=== PATIENT | female | born 1945 | race Caucasian/White ===

== ENCOUNTER 2017-03-31 00:16 | Inpatient (IN) | payer MEDICARE ==
[2017-03-31] MEDS ORDERED: Acetaminophen 325 MG Tab PO ONE (00:53)
--- NOTE | 2017-03-31 00:55 | EDM.PDOC ---
ED HPI GENERAL MEDICAL PROBLEM - General Chief Complaint: General Stated Complaint: CHILLS AND SOB Time Seen by Provider: 03/31/17 00:55 Source of Information: Reports: Patient History Limitations: Reports: No Limitations - History of Present Illness INITIAL COMMENTS - FREE TEXT/NARRATIVE: pt was watching tv and she suddenly developed severe shaking chills and she was having difficulty catching her breath. She felt like she was shaking so hard that she couldm,t catch her breath, She has not had a cough. Onset: Today, Sudden Duration: Hour(s): Location: Reports: Chest, Other ( She felt like she had a lot of pressure over her bladder. ) Associated Symptoms: Reports: Fever/Chills, Shortness of Breath, Other ( Pressure over her bladder. ) - Related Data Allergies Allergy/AdvReac Type Severity Reaction Status Date / Time codeine Allergy Hives Verified 03/31/17 00:50 Home Meds: Home Meds Lisinopril [Prinivil] 10 mg PO BID #60 tablet 03/20/15 [Rx] Metoprolol Tartrate [Lopressor] 50 mg PO BID #60 tablet 03/20/15 [Rx] Pantoprazole Sodium [Protonix] 20 mg PO DAILY 01/09/16 [History] amLODIPine [Norvasc] 5 mg PO DAILY 01/09/16 [History] Levofloxacin 500 mg PO DAILY #4 tablet 03/31/17 [Rx] Past Medical History Cardiovascular History: Reports: Hypertension Gastrointestinal History: Reports: GERD - Infectious Disease History Infectious Disease History: Reports: Chicken Pox - Past Surgical History GI Surgical History: Reports: Appendectomy Social & Family History - Tobacco Use Smoking Status *Q: Current Every Day Smoker Years of Tobacco use: 50 Packs/Tins Daily: 1 Used Tobacco, but Quit: No Second Hand Smoke Exposure: No - Caffeine Use Caffeine Use: Reports: Coffee - Recreational Drug Use Recreational Drug Use: No ED ROS GENERAL - Review of Systems Review Of Systems: See Below Constitutional: Reports: Fever, Chills, Malaise HEENT: Reports: No Symptoms Respiratory: Reports: Shortness of Breath Cardiovascular: Reports: No Symptoms Endocrine: Reports: No Symptoms GI/Abdominal: Reports: No Symptoms : Reports: Other ( Pt did not have pain when she voided but she had a pressure over her bladder. ) Musculoskeletal: Reports: No Symptoms Skin: Reports: No Symptoms Neurological: Reports: No Symptoms Psychiatric: Reports: Anxiety ED EXAM, GENERAL - Physical Exam Exam: See Below Free Text/Narrative:: pt arrived feeling that her breathing had improved but she was still chilling. Sh had pressure ovr her bladder but no other discomfort. Exam Limited By: No Limitations General Appearance: Alert, Anxious, Moderate Distress, Other ( Pupils are equal and reactive. ) Ears: Normal TMs Nose: Normal Inspection Throat/Mouth: Normal Inspection Head: Atraumatic Neck: Normal Inspection Respiratory/Chest: No Respiratory Distress, Other (Pt was not distressed resp lopez. ) Cardiovascular: Regular Rate, Rhythm GI/Abdominal: Soft, Non-Tender (Female) Exam: Deferred Rectal (Female) Exam: Deferred Back Exam: Normal Inspection Extremities: Normal Inspection Neurological: Alert, Oriented, Normal Cognition Psychiatric: Normal Affect Course - Vital Signs Last Recorded V/S: Last Vital Signs Temp 36.6 C 03/31/17 07:24 Pulse 68 03/31/17 09:14 Resp 18 03/31/17 07:24 BP 145/45 H 03/31/17 09:15 Pulse Ox 98 03/31/17 07:24 - Orders/Labs/Meds Labs: Laboratory Tests 03/31/17 03/31/17 03/31/17 Range/Units 00:55 01:02 01:02 WBC 15.7 H (4.5-11.0) K/uL RBC 4.21 (3.30-5.50) M/uL Hgb 13.7 (12.0-15.0) g/dL Hct 40.6 (36.0-48.0) % MCV 96 (80-98) fL MCH 33 H (27-31) pg MCHC 34 (32-36) % Plt Count 295 (150-400) K/uL Neut % (Auto) 92 H (36-66) % Lymph % (Auto) 4 L (24-44) % [place]lier % (Auto) 3 (2-6) % Eos % (Auto) 1 L (2-4) % Baso % (Auto) 0 (0-1) % Sodium 140 (140-148) mmol/L Potassium 3.7 (3.6-5.2) mmol/L Chloride 105 (100-108) mmol/L Carbon Dioxide 23 (21-32) mmol/L Anion Gap 11.8 (5.0-14.0) mmol/L BUN 11 D (7-18) mg/dL Creatinine 1.5 H (0.6-1.0) mg/dL Est Cr Clr Drug Dosing 28.00 mL/min Estimated GFR (MDRD) 34 L (>60) Glucose 175 H (74-106) mg/dL Lactic Acid 2.3 H (0.4-2.0) mmol/L Calcium 8.7 (8.5-10.1) mg/dL Total Bilirubin 0.4 (0.2-1.0) mg/dL AST 16 (15-37) U/L ALT 22 (12-78) U/L Alkaline Phosphatase 115 (46-116) U/L C-Reactive Protein (0.0-0.3) mg/dL Total Protein 7.4 (6.4-8.2) g/dL Albumin 3.2 L (3.4-5.0) g/dL Globulin 4.2 H (2.3-3.5) g/dL Albumin/Globulin Ratio 0.8 L (1.2-2.2) Urine Color Urine Appearance Urine pH (4.5-8.0) Ur Specific [place] (1.008-1.030) Urine Protein (NEGATIVE) mg/dL Urine Glucose (UA) (NEGATIVE) mg/dL Urine Ketones (NEGATIVE) mg/dL Urine Occult Blood (NEGATIVE) Urine Nitrite (NEGATIVE) Urine Bilirubin (NEGATIVE) Urine Urobilinogen (NORMAL) mg/dL Ur Leukocyte Esterase (NEGATIVE) Urine RBC (0-5) Urine WBC (0-5) Ur Epithelial Cells Amorphous Sediment Urine Bacteria Urine Mucus 03/31/17 03/31/17 Range/Units 01:29 01:42 WBC (4.5-11.0) K/uL RBC (3.30-5.50) M/uL Hgb (12.0-15.0) g/dL Hct (36.0-48.0) % MCV (80-98) fL MCH (27-31) pg MCHC (32-36) % Plt Count (150-400) K/uL Neut % (Auto) (36-66) % Lymph % (Auto) (24-44) % [place] % (Auto) (2-6) % Eos % (Auto) (2-4) % Baso % (Auto) (0-1) % Sodium (140-148) mmol/L Potassium (3.6-5.2) mmol/L Chloride (100-108) mmol/L Carbon Dioxide (21-32) mmol/L Anion Gap (5.0-14.0) mmol/L BUN (7-18) mg/dL Creatinine (0.6-1.0) mg/dL Est Cr Clr Drug Dosing mL/min Estimated GFR (MDRD) (>60) Glucose (74-106) mg/dL Lactic Acid (0.4-2.0) mmol/L Calcium (8.5-10.1) mg/dL Total Bilirubin (0.2-1.0) mg/dL AST (15-37) U/L ALT (12-78) U/L Alkaline Phosphatase (46-116) U/L C-Reactive Protein 2.14 H (0.0-0.3) mg/dL Total Protein (6.4-8.2) g/dL Albumin (3.4-5.0) g/dL Globulin (2.3-3.5) g/dL Albumin/Globulin Ratio (1.2-2.2) Urine Color Yellow Urine Appearance Cloudy Urine pH 5.0 (4.5-8.0) Ur Specific [place] 1.005 L (1.008-1.030) Urine Protein 30 H (NEGATIVE) mg/dL Urine Glucose (UA) Normal (NEGATIVE) mg/dL Urine Ketones Negative (NEGATIVE) mg/dL Urine Occult Blood Moderate (NEGATIVE) Urine Nitrite Negative (NEGATIVE) Urine Bilirubin Negative (NEGATIVE) Urine Urobilinogen Normal (NORMAL) mg/dL Ur Leukocyte Esterase Moderate (NEGATIVE) Urine RBC 10-20 H (0-5) Urine WBC >100 H (0-5) Ur Epithelial Cells Few Amorphous Sediment Not seen Urine Bacteria Moderate Urine Mucus Not seen Meds: Medications Discontinued Medications Generic Name Dose Route Start Last Admin Trade Name Freq PRN Reason Stop Dose Admin Acetaminophen 650 mg 03/31/17 00:53 03/31/17 01:08 Tylenol PO 03/31/17 00:54 650 mg NOW ONE Administration Acetaminophen 650 mg 03/31/17 04:17 Tylenol PO Q4H PRN Pain (Mild 1-3)/fever Albuterol 2.5 mg 03/31/17 04:17 Proventil Neb Soln NEB Q4H PRN Shortness Of Breath/wheezing Albuterol/Ipratropium 3 ml 03/31/17 06:00 Duoneb 3.0-0.5 Mg/3 Ml NEB QID JOSE CRUZ Albuterol/Ipratropium 3 ml 03/31/17 07:00 03/31/17 07:11 Duoneb 3.0-0.5 Mg/3 Ml NEB 3 ml QIDRT JOSE CRUZ Administration Amlodipine Besylate 5 mg 03/31/17 09:00 03/31/17 09:14 Norvasc PO 5 mg DAILY JOSE CRUZ Administration Docusate Sodium 100 mg 03/31/17 04:17 Colace PO BID PRN Constipation Enoxaparin Sodium 30 mg 03/31/17 09:00 03/31/17 09:45 Lovenox SUBCUT Not Given DAILY JOSE CRUZ Sodium Chloride 1,000 mls @ 500 mls/hr 03/31/17 01:00 03/31/17 01:12 Normal Saline IV 500 mls/hr ASDIRECTED JOSE CRUZ Administration Levofloxacin/Dextrose 500 mg/ 100 mls @ 100 mls/hr 03/31/17 02:06 03/31/17 02 :54 Premix IV 03/31/17 03:05 100 mls/hr ONETIME ONE Administration Sodium Chloride 1,000 mls @ 999 mls/hr 03/31/17 02:15 03/31/17 02:55 Normal Saline IV 999 mls/hr ASDIRECTED JOSE CRUZ Administration Levofloxacin/Dextrose 250 mg/ 50 mls @ 50 mls/hr 03/31/17 02:00 03/31/17 05: 21 Premix IV Not Given Q24H JOSE CRUZ Sodium Chloride 1,000 mls @ 125 mls/hr 03/31/17 04:17 03/31/17 04:42 Normal Saline IV 125 mls/hr ASDIRECTED JOSE CRUZ Administration Levofloxacin/Dextrose 500 mg/ 100 mls @ 100 mls/hr 04/01/17 02:00 Premix IV Q24H JOSE CRUZ Ibuprofen 600 mg 03/31/17 04:17 Motrin PO Q6H PRN Pain/Fever Influenza Virus Vaccine 180 mcg 04/01/17 10:00 Fluzone High-Dose 2017-18 IM 04/01/17 10:01 .ONCE ONE Lisinopril 10 mg 03/31/17 09:00 03/31/17 09:15 Prinivil PO 10 mg BID JOSE CRUZ Administration Lorazepam 1 mg 03/31/17 04:17 Ativan IV Q6H PRN Nausea/Vomiting Magnesium Hydroxide 30 ml 03/31/17 04:17 Milk Of Magnesia PO Q12H PRN Constipation Metoprolol Tartrate 50 mg 03/31/17 09:00 03/31/17 09:14 Lopressor PO 50 mg BID JOSE CRUZ Administration Morphine Sulfate 2 mg 03/31/17 04:17 Morphine IVPUSH Q2H PRN Pain (severe 7-10) Nystatin 0 gm 03/31/17 03:45 03/31/17 09:14 Nystatin Crm TOP 1 applic TID JOSE CRUZ Administration Ondansetron HCl 4 mg 03/31/17 04:17 Zofran Odt PO Q6H PRN Nausea able to take PO Oxycodone HCl 5 mg 03/31/17 04:17 Oxycodone PO Q4H PRN Pain (moderate 4-6) Pantoprazole Sodium 40 mg 03/31/17 09:00 03/31/17 09:15 Protonix Iv IVPUSH 40 mg DAILY JOSE CRUZ Administration Zolpidem Tartrate 5 mg 03/31/17 21:00 Ambien PO BEDTIME [facility] - Re-Assessments/Exams Free Text/Narrative Re-Assessment/Exam: 03/31/17 02:12 Pt had a elevated wbc. Her lactic acid is mildly elvated . Her urine is very infected. Her chest xray did not show an infiltrate. Her creatnine is elvated. Departure - Departure Time of Disposition: 09:15 Disposition: Admitted As Inpatient 68 Condition: Fair Clinical Impression: UTI (urinary tract infection) Sepsis Qualifiers: Sepsis type: sepsis due to unspecified organism Qualified Code(s): A41.9 - Sepsis, unspecified organism - Discharge Information
[2017-03-31] MEDS ORDERED: Sodium Chloride 0.9% 1,000 ML IV SCH ×3 (01:00→04:17)
[2017-03-31] MEDS ORDERED: Levofloxacin/Dextrose 5%-Water 250 MG in Premix Bag 1 BAG IV SCH (02:00)
[2017-03-31] MEDS ORDERED: Levofloxacin/Dextrose 5%-Water 500 MG in Premix Bag 1 BAG IV ONE (02:06)
--- NOTE | 2017-03-31 03:35 | PCM.HP ---
H&P History of Present Illness - General Date of Service: 03/31/17 Admit Problem/Dx: Admission Diagnosis/Problem Admission Diagnosis/Problem Urosepsis Source of Information: Patient History Limitations: Reports: No Limitations - History of Present Illness Initial Comments - Free Text/Narative: pt was watching tv and she suddenly developed severe shaking chills and she was having difficulty catching her breath. She felt like she was shaking so hard that she couldm,t catch her breath, She has not had a cough. Onset: Today, Sudden Duration: Hour(s): Location: Reports: Chest, Other ( She felt like she had a lot of pressure over her bladder. ) Associated Symptoms: Reports: Fever/Chills, Shortness of Breath, Other ( Pressure over her bladder. ) -05/31/16 02:12 Pt had a elevated wbc. Her lactic acid is mildly elevated . Her urine is very infected. Her chest xray did not show an infiltrate. Her creatnine is elvated. plan to admit to Hospitalist Service Onset of Symptoms: Reports: Sudden Duration of Symptoms: Reports: Hour(s): Location: Reports: Generalized Quality: Reports: Other (urinary frequency for 2 days, fever this evening.) Improves with: Reports: None Worsens with: Reports: None Associated Symptoms: Reports: Fever/Chills - Related Data Allergies/Adverse Reactions: Allergies Allergy/AdvReac Type Severity Reaction Status Date / Time codeine Allergy Hives Verified 03/31/17 00:50 Home Medications: Home Meds Lisinopril [Prinivil] 10 mg PO BID #60 tablet 03/20/15 [Rx] Metoprolol Tartrate [Lopressor] 50 mg PO BID #60 tablet 03/20/15 [Rx] Pantoprazole Sodium [Protonix] 20 mg PO DAILY 01/09/16 [History] amLODIPine [Norvasc] 5 mg PO DAILY 01/09/16 [History] Past Medical History HEENT History: Reports: Allergic Rhinitis, Cataract, Impaired Vision Cardiovascular History: Reports: Hypertension Gastrointestinal History: Reports: GERD Genitourinary History: Reports: Urinary Incontinence, UTI, Recurrent [employer] History: Reports: Psychiatric History: Reports: Depression Endocrine/Metabolic History: Reports: Obesity/BMI 30+ - Infectious Disease History Infectious Disease History: Reports: Chicken Pox Other Infectious Disease History: pt unknown - Past Surgical History GI Surgical History: Reports: Appendectomy Social & Family History - Tobacco Use Smoking Status *Q: Current Every Day Smoker Years of Tobacco use: 50 Packs/Tins Daily: 1 Used Tobacco, but Quit: No Second Hand Smoke Exposure: No - Caffeine Use Caffeine Use: Reports: Coffee - Recreational Drug Use Recreational Drug Use: No H&P Review of Systems - Review of Systems: Review Of Systems: See Below General: Reports: Fever, Chills, Fatigue HEENT: Reports: No Symptoms Pulmonary: Reports: Cough (chronic cough due to current smoking. >1 pack per day ) Cardiovascular: Reports: No Symptoms Gastrointestinal: Reports: No Symptoms Genitourinary: Reports: Frequency, Urgency Musculoskeletal: Reports: No Symptoms Skin: Reports: Rash (fungal rash to groin folds.) Psychiatric: Reports: No Symptoms Neurological: Reports: No Symptoms Hematologic/Lymphatic: Reports: No Symptoms Immunologic: Reports: No Symptoms Exam - Exam Exam: See Below - Vital Signs Vital Signs: Last Vital Signs Temp 37.9 C 03/31/17 02:59 Pulse 72 03/31/17 02:59 Resp 22 H 03/31/17 02:59 BP 117/55 L 03/31/17 02:59 Pulse Ox 96 03/31/17 02:59 Weight: 97.8 kg - Exam Quality Assessment: DVT Prophylaxis General: Alert, Oriented, Cooperative HEENT: PERRLA, Hearing Intact, Mucosa Moist & [place], Nares Patent, Normal Nasal Septum, Posterior Pharynx Clear, Conjunctiva Clear, EOMI, EACs Clear, TMs Clear Neck: Supple, Trachea Midline, 2 Lungs: Decreased Breath Sounds (at bases, expiratory wheezing. ), Crackles, Wheezing Cardiovascular: Regular Rate, Regular Rhythm GI/Abdominal Exam: Normal Bowel Sounds, Soft, Non-Tender, No Organomegaly, No Distention, No Abnormal Bruit, No Mass, Pelvis Stable (Female) Exam: Deferred Rectal (Female) Exam: Deferred Back Exam: Normal Inspection, Full Range of Motion, NT Extremities: Normal Inspection, Normal Range of Motion, Non-Tender, Normal Capillary Refill, Pedal Edema (1+) Skin: Rash (red, moist, odor rash to groin, abdominal folds.) Neurological: Reflexes Equal Bilateral, Strength Equal Bilateral, Normal Speech , Normal Tone, Sensation Intact Neuro Extensive - Mental Status: Alert, Oriented x3, Normal Mood/Affect, Normal Cognition Psychiatric: Alert, Normal Affect, Normal Mood - Patient Data Lab Results Last 24 hrs: Laboratory Results - last 24 hr 03/31/17 03/31/17 03/31/17 Range/Units 00:55 01:02 01:02 WBC 15.7 H (4.5-11.0) K/uL RBC 4.21 (3.30-5.50) M/uL Hgb 13.7 (12.0-15.0) g/dL Hct 40.6 (36.0-48.0) % MCV 96 (80-98) fL MCH 33 H (27-31) pg MCHC 34 (32-36) % Plt Count 295 (150-400) K/uL Neut % (Auto) 92 H (36-66) % Lymph % (Auto) 4 L (24-44) % [place] % (Auto) 3 (2-6) % Eos % (Auto) 1 L (2-4) % Baso % (Auto) 0 (0-1) % Sodium 140 (140-148) mmol/L Potassium 3.7 (3.6-5.2) mmol/L Chloride 105 (100-108) mmol/L Carbon Dioxide 23 (21-32) mmol/L Anion Gap 11.8 (5.0-14.0) mmol/L BUN 11 D (7-18) mg/dL Creatinine 1.5 H (0.6-1.0) mg/dL Est Cr Clr Drug Dosing 28.00 mL/min Estimated GFR (MDRD) 34 L (>60) Glucose 175 H (74-106) mg/dL Lactic Acid 2.3 H (0.4-2.0) mmol/L Calcium 8.7 (8.5-10.1) mg/dL Total Bilirubin 0.4 (0.2-1.0) mg/dL AST 16 (15-37) U/L ALT 22 (12-78) U/L Alkaline Phosphatase 115 (46-116) U/L C-Reactive Protein (0.0-0.3) mg/dL Total Protein 7.4 (6.4-8.2) g/dL Albumin 3.2 L (3.4-5.0) g/dL Globulin 4.2 H (2.3-3.5) g/dL Albumin/Globulin Ratio 0.8 L (1.2-2.2) Urine Color Urine Appearance Urine pH (4.5-8.0) Ur Specific [place] (1.008-1.030) Urine Protein (NEGATIVE) mg/dL Urine Glucose (UA) (NEGATIVE) mg/dL Urine Ketones (NEGATIVE) mg/dL Urine Occult Blood (NEGATIVE) Urine Nitrite (NEGATIVE) Urine Bilirubin (NEGATIVE) Urine Urobilinogen (NORMAL) mg/dL Ur Leukocyte Esterase (NEGATIVE) Urine RBC (0-5) Urine WBC (0-5) Ur Epithelial Cells Amorphous Sediment Urine Bacteria Urine Mucus 03/31/17 03/31/17 Range/Units 01:29 01:42 WBC (4.5-11.0) K/uL RBC (3.30-5.50) M/uL Hgb (12.0-15.0) g/dL Hct (36.0-48.0) % MCV (80-98) fL MCH (27-31) pg MCHC (32-36) % Plt Count (150-400) K/uL Neut % (Auto) (36-66) % Lymph % (Auto) (24-44) % [place] % (Auto) (2-6) % Eos % (Auto) (2-4) % Baso % (Auto) (0-1) % Sodium (140-148) mmol/L Potassium (3.6-5.2) mmol/L Chloride (100-108) mmol/L Carbon Dioxide (21-32) mmol/L Anion Gap (5.0-14.0) mmol/L BUN (7-18) mg/dL Creatinine (0.6-1.0) mg/dL Est Cr Clr Drug Dosing mL/min Estimated GFR (MDRD) (>60) Glucose (74-106) mg/dL Lactic Acid (0.4-2.0) mmol/L Calcium (8.5-10.1) mg/dL Total Bilirubin (0.2-1.0) mg/dL AST (15-37) U/L ALT (12-78) U/L Alkaline Phosphatase (46-116) U/L C-Reactive Protein 2.14 H (0.0-0.3) mg/dL Total Protein (6.4-8.2) g/dL Albumin (3.4-5.0) g/dL Globulin (2.3-3.5) g/dL Albumin/Globulin Ratio (1.2-2.2) Urine Color Yellow Urine Appearance Cloudy Urine pH 5.0 (4.5-8.0) Ur Specific [place] 1.005 L (1.008-1.030) Urine Protein 30 H (NEGATIVE) mg/dL Urine Glucose (UA) Normal (NEGATIVE) mg/dL Urine Ketones Negative (NEGATIVE) mg/dL Urine Occult Blood Moderate (NEGATIVE) Urine Nitrite Negative (NEGATIVE) Urine Bilirubin Negative (NEGATIVE) Urine Urobilinogen Normal (NORMAL) mg/dL Ur Leukocyte Esterase Moderate (NEGATIVE) Urine RBC 10-20 H (0-5) Urine WBC >100 H (0-5) Ur Epithelial Cells Few Amorphous Sediment Not seen Urine Bacteria Moderate Urine Mucus Not seen Result Diagrams: 03/31/17 00:55 03/31/17 01:02 Arturo Results Last 24 hrs: Microbiology 03/31/17 01:15 Influenza Type A Antigen Screen - Final Nasopharyngeal Swab - Nare, Unspecified NEGATIVE INFLUENZA A VIRUS AG Influenza Type B Antigen Screen - Final NEGATIVE INFLUENZA B VIRUS AG *Q Meaningful Use (ADM) - VTE *Q VTE Criteria *Q: - Stroke *Q Stroke Criteria *Q: - AMI *Q AMI Criteria *Q: - Problem List (1) Sepsis due to urinary tract infection SNOMED Code(s): 150263366 ICD Code: A41.9 - SEPSIS, UNSPECIFIED ORGANISM; N39.0 - URINARY TRACT INFECTION, SITE NOT SPECIFIED Status: Acute Priority: High Current Visit: Yes (2) Mita rash of groin SNOMED Code(s): 49625148 ICD Code: B37.89 - OTHER SITES OF CANDIDIASIS Status: Acute Priority: Medium Current Visit: Yes (3) Hypertension SNOMED Code(s): 23680111 ICD Code: I10 - ESSENTIAL (PRIMARY) HYPERTENSION Status: Acute Priority: Medium Current Visit: Yes Qualifiers: Hypertension type: unspecified Qualified Code(s): I10 - Essential (primary ) hypertension Problem List Initiated/Reviewed/Updated: Yes Orders Last 24hrs: Active Orders 24 hr Category Date Time Status Patient Status Manage Transfer [TRANSFER] Routine ADT 03/31/17 03:03 Active Chest 1V Frontal [CR] Stat Exams 03/31/17 00:50 Taken CULTURE BLOOD [BC] Urgent Lab 03/31/17 00:55 Received CULTURE BLOOD [BC] Urgent Lab 03/31/17 01:15 Received CULTURE URINE [RM] Stat Lab 03/31/17 02:30 Received Lisinopril [Prinivil] Med 03/31/17 09:00 Ordered 10 mg PO BID Metoprolol Tartrate [Lopressor] Med 03/31/17 09:00 Ordered 50 mg PO BID Nystatin [Nystatin Crm] Med 03/31/17 03:45 Ordered See Dose Instructions TOP TID Sodium Chloride 0.9% [Normal Saline] 1,000 ml Med 03/31/17 01:00 Active IV ASDIRECTED Sodium Chloride 0.9% [Normal Saline] 1,000 ml Med 03/31/17 02:15 Active IV ASDIRECTED amLODIPine [Norvasc] Med 03/31/17 09:00 Ordered 5 mg PO DAILY Blood Culture x2 Reflex Set [OM.PC] Urgent Oth 03/31/17 00:49 Ordered Resuscitation Status Routine Resus Stat 03/31/17 03:04 Ordered Medication Orders Amlodipine Besylate (Norvasc) 5 mg PO DAILY [facility] Sodium Chloride (Normal Saline) 1,000 mls @ 500 mls/hr IV ASDIRECTED [facility] Last Admin: 03/31/17 01:12 Dose: 500 mls/hr Sodium Chloride (Normal Saline) 1,000 mls @ 999 mls/hr IV ASDIRECTED [facility] Last Admin: 03/31/17 02:55 Dose: 999 mls/hr Lisinopril (Prinivil) 10 mg PO BID JOSE CRUZ Metoprolol Tartrate (Lopressor) 50 mg PO BID JOSE CRUZ Nystatin (Nystatin Crm) 0 gm TOP TID [facility] Assessment/Plan Comment:: ASSESSMENT / PLAN -This is a 71 year old female present to ER with complaints of fever and shaking chills started this evening. Upon arrival to ER was noted to have >104 temp, shaking chills. Pt had a elevated wbc. Her lactic acid is mildly elevated . Her urine is very infected. Her chest xray did not show an infiltrate. Her creatnine is elvated. While in ER, given Normal Saline IV fluids, IV Levoquin 500 mg. Plan to hospital for early urosepsis. Urosepsis -Admit to [address] [place] [address] for further monitoring -IV Fluids for rehydration NS at 125 mL per hour -IV Antibiotic; Levoquin 500 gram IV every 24 hours -Advise to notify nurses of any chest pain or other symptoms -blood cultures x2 pending -And a.m. labs: CBC, BMP, lactic acid rash of groin, secondary to fungal infection -Nystatin oral cream as directed Hypertension -order home medication Tobacco use, lung disease -albuteral nebs every 4 hours prn -Duonebs schedule -decline Nicotine patch Maintenance issues -Orders home meds: -Nutrition: consistent diet -Pastor catheter not indicated at this time -DVT: Lovonox 30 units subcut -PPI; IV Protonix 40mg daily CODE STATUS: FULL Admission status: Admit to [address] [place] [address] justification. This patient will be admitted for inpatient services and is medically appropriate meeting medical necessity for inpatient admission as outlined in my documentation. I reasonably expect the patient will require inpatient services that span. Time over 2 midnights. I reasonably expect this patient to be discharged or transferred within 96 hours after admission to the critical access hospital. Disposition; home Primary care provider: Hospitalist: Dr. Mims
[2017-03-31] MEDS ORDERED: Acetaminophen 325 MG Tab PO PRN (04:17)
[2017-03-31] MEDS ORDERED: oxyCODONE 5 MG Tab PO PRN (04:17)
[2017-03-31] MEDS ORDERED: Docusate Sodium 100 MG Cap PO PRN (04:17)
[2017-03-31] MEDS ORDERED: Albuterol 0.083% 2.5 MG/3 ML Neb Soln NEB PRN (04:17)
[2017-03-31] MEDS ORDERED: Magnesium Hydroxide 400 MG/5 ML Susp 30 ML Cup PO PRN (04:17)
[2017-03-31] MEDS ORDERED: LORazepam 2 MG/ML MDV IV PRN (04:17)
[2017-03-31] MEDS ORDERED: Morphine 2 MG/ML Syringe IVPUSH PRN (04:17)
[2017-03-31] MEDS ORDERED: Ondansetron 4 MG Tab.DIS PO PRN (04:17)
[2017-03-31] MEDS ORDERED: Ibuprofen 600 MG Tab PO PRN (04:17)
[2017-03-31] MEDS: Nystatin Crm 30 GM Tube TOP SCH ×2 (05:15→09:14)
[2017-03-31] MEDS ORDERED: Albuterol/Ipratropium 3.0-0.5 MG/3 ML Neb Soln NEB SCH ×2 (06:00→07:00)
[2017-03-31] MEDS ORDERED: Lisinopril 10 MG Tab PO SCH (09:00)
[2017-03-31] MEDS ORDERED: Metoprolol Tartrate 50 MG Tab PO SCH (09:00)
[2017-03-31] MEDS ORDERED: Pantoprazole 40 MG Vial IVPUSH SCH (09:00)
[2017-03-31] MEDS ORDERED: amLODIPine 5 MG Tab PO SCH (09:00)
[2017-03-31] MEDS: Enoxaparin 30 MG/0.3 ML Syringe SUBCUT SCH ×2 (09:14→09:45)
[2017-03-31 09:18] VITALS: BP 145/45
--- NOTE | 2017-03-31 09:47 | PCM.DCSUM1 ---
Discharge Summary - Hospital Course Brief History: 71-year-old female with history of hypertension who presented with fever and shortness of breath and was admitted for management of acute cystitis with early sepsis. - Discharge Data Discharge Date: 03/31/17 Discharge Disposition: Home, Self-Care 01 Condition: Fair - Discharge Diagnosis/Problem(s) (1) Acute cystitis without hematuria SNOMED Code(s): 52599765 ICD Code: N30.00 - ACUTE CYSTITIS WITHOUT HEMATURIA Status: Acute Current Visit: Yes (2) Sepsis SNOMED Code(s): 35993574 ICD Code: A41.9 - SEPSIS, UNSPECIFIED ORGANISM Status: Acute Current Visit: Yes Qualifiers: Sepsis type: sepsis due to unspecified organism Qualified Code(s): A41.9 - Sepsis, unspecified organism (3) Essential hypertension SNOMED Code(s): 85568018 ICD Code: I10 - ESSENTIAL (PRIMARY) HYPERTENSION Status: Chronic Current Visit: No - Patient Summary/Data Labs Pending at D/C: final results of the urine culture which are pending at the time of discharge Hospital Course: Estefani presented with fevers, shaking chills and shortness of breath. Workup in the emergency room was suggestive of acute cystitis with early sepsis syndrome. She was started on levofloxacin and provided IV fluids. Cultures were obtained. She was admitted for further management. Overnight she improved dramatically and much more quickly than expected. Her vital signs stabilized. She has been afebrile since admission. She does not have any pain at this time. She has been up and walking around without difficulty. She has tolerated the diet with no difficulty. She is interested in going home at this time. I believe with her stable vital signs and dramatic improvement that she should be safe for outpatient management. Plan is to continue the levofloxacin for 4 more days. She 'll take 500 mg once daily in the morning starting tomorrow. I will contact her if the urine culture was a bacteria that's resistant to the levofloxacin. She was encouraged to push fluids to maintain hydration and further flush the infection out of her bladder. She will follow-up if symptoms do not continue to get better or they get worse. - Patient Instructions Diet: Regular Diet as Tolerated Activity: As Tolerated Driving: May Drive Today Showering/Bathing: May Shower Notify Provider of: Fever, Increased Pain, Nausea and/or Vomiting Other/Special Instructions: 1. You Were in the hospital for management of a urinary tract infection with early sepsis syndrome. You have improved very quickly with treatment provided in the emergency room and the early part of the hospital stay. I recommend additional antibiotic therapy with levofloxacin. You will take 500 mg once daily in the morning for 4 more days. Your first dose is due tomorrow morning. 2. Continue your usual medications as previously prescribed. 3. Please seek medical attention if you develop fever greater than 101, have severe abdominal pain, or if you develop persistent vomiting or diarrhea - Discharge Plan Prescriptions/Med Rec: Levofloxacin 500 mg PO DAILY #4 tablet Home Medications: Home Meds Lisinopril [Prinivil] 10 mg PO BID #60 tablet 03/20/15 [Rx] Metoprolol Tartrate [Lopressor] 50 mg PO BID #60 tablet 03/20/15 [Rx] Pantoprazole Sodium [Protonix] 20 mg PO DAILY 01/09/16 [History] amLODIPine [Norvasc] 5 mg PO DAILY 01/09/16 [History] Levofloxacin 500 mg PO DAILY #4 tablet 03/31/17 [Rx] Patient Handouts: Urinary Tract Infection, Adult, Levofloxacin tablets Referrals: Ishaan Giraldo PA-C [Primary Care Provider] - (f/u as needed if symptoms do not continue to get better or they get worse) - Discharge Summary/Plan Comment DC Time >30 min.: No (25) - Patient Data Vitals - Most Recent: Last Vital Signs Temp 36.6 C 03/31/17 07:24 Pulse 68 03/31/17 09:14 Resp 18 03/31/17 07:24 BP 145/45 H 03/31/17 09:15 Pulse Ox 98 03/31/17 07:24 Weight - Most Recent: 98.2 kg I&O - Last 24 hours: Intake & Output 03/30/17 03/31/17 03/31/17 22:59 06:59 14:59 Intake Total 659 250 Balance 659 250 Lab Results - Last 24 hrs: Laboratory Results - last 24 hr 03/31/17 03/31/17 Range/Units 05:10 05:11 Lactic Acid 1.7 (0.4-2.0) mmol/L C-Reactive Protein 2.38 H (0.0-0.3) mg/dL Med Orders - Current: Current Medications Acetaminophen (Tylenol) 650 mg PO Q4H PRN PRN Reason: Pain (Mild 1-3)/fever Albuterol (Proventil Neb Soln) 2.5 mg NEB Q4H PRN PRN Reason: Shortness Of Breath/wheezing Albuterol/Ipratropium (Duoneb 3.0-0.5 Mg/3 Ml) 3 ml NEB QIDRT [facility] Last Admin: 03/31/17 07:11 Dose: 3 ml Amlodipine Besylate (Norvasc) 5 mg PO DAILY [facility] Last Admin: 03/31/17 09:14 Dose: 5 mg Docusate Sodium (Colace) 100 mg PO BID PRN PRN Reason: Constipation Enoxaparin Sodium (Lovenox) 30 mg SUBCUT DAILY [facility] Last Admin: 03/31/17 09:45 Dose: Not Given Sodium Chloride (Normal Saline) 1,000 mls @ 125 mls/hr IV ASDIRECTED [facility] Last Admin: 03/31/17 04:42 Dose: 125 mls/hr Levofloxacin/Dextrose 500 mg/ (Premix) 100 mls @ 100 mls/hr IV Q24H [facility] Ibuprofen (Motrin) 600 mg PO Q6H PRN PRN Reason: Pain/Fever Influenza Virus Vaccine (Fluzone High-Dose 2016-) 180 mcg IM .ONCE ONE Stop: 04/01/17 10:01 Lisinopril (Prinivil) 10 mg PO BID [facility] Last Admin: 03/31/17 09:15 Dose: 10 mg Lorazepam (Ativan) 1 mg IV Q6H PRN PRN Reason: Nausea/Vomiting Magnesium Hydroxide (Milk Of Magnesia) 30 ml PO Q12H PRN PRN Reason: Constipation Metoprolol Tartrate (Lopressor) 50 mg PO BID [facility] Last Admin: 03/31/17 09:14 Dose: 50 mg Morphine Sulfate (Morphine) 2 mg IVPUSH Q2H PRN PRN Reason: Pain (severe 7-10) Nystatin (Nystatin Crm) 0 gm TOP TID [facility] Last Admin: 03/31/17 09:14 Dose: 1 applic Ondansetron HCl (Zofran Odt) 4 mg PO Q6H PRN PRN Reason: Nausea able to take PO Oxycodone HCl (Oxycodone) 5 mg PO Q4H PRN PRN Reason: Pain (moderate 4-6) Pantoprazole Sodium (Protonix Iv) 40 mg IVPUSH DAILY [facility] Last Admin: 03/31/17 09:15 Dose: 40 mg Zolpidem Tartrate (Ambien) 5 mg PO BEDTIME [facility] Discontinued Medications Acetaminophen (Tylenol) 650 mg PO NOW ONE Stop: 03/31/17 00:54 Last Admin: 03/31/17 01:08 Dose: 650 mg Albuterol/Ipratropium (Duoneb 3.0-0.5 Mg/3 Ml) 3 ml NEB QID [facility] Sodium Chloride (Normal Saline) 1,000 mls @ 500 mls/hr IV ASDIRECTED [facility] Last Admin: 03/31/17 01:12 Dose: 500 mls/hr Levofloxacin/Dextrose 500 mg/ (Premix) 100 mls @ 100 mls/hr IV ONETIME ONE Stop: 03/31/17 03:05 Last Admin: 03/31/17 02:54 Dose: 100 mls/hr Sodium Chloride (Normal Saline) 1,000 mls @ 999 mls/hr IV ASDIRECTED [facility] Last Admin: 03/31/17 02:55 Dose: 999 mls/hr Levofloxacin/Dextrose 250 mg/ (Premix) 50 mls @ 50 mls/hr IV Q24H [facility] Last Admin: 03/31/17 05:21 Dose: Not Given - Exam Quality Assessment: Denies: Supplemental Oxygen General: Reports: Alert, Oriented, Cooperative, No Acute Distress Neck: Reports: Supple Lungs: Reports: Normal Respiratory Effort GI/Abdominal Exam: No Distention Psy/Mental Status: Reports: Alert, Normal Affect *Q Meaningful Use (DIS) - VTE *Q VTE Criteria *Q: - Stroke *Q Stroke Criteria *Q: - AMI *Q AMI Criteria *Q:
--- NOTE | 2017-03-31 10:51 | CR ---
Chest 1V Frontal INDICATION: sob FINDINGS: Comparison 04/08/2015. Heart size accentuated by portable AP technique. Chest otherwise neg ative.
[2017-03-31] MEDS ORDERED: Zolpidem 5 MG Tab PO SCH (21:00)
[2017-04-01] MEDS ORDERED: Levofloxacin/Dextrose 5%-Water 500 MG in Premix Bag 1 BAG IV SCH (02:00)
[2017-04-01] MEDS ORDERED: FLU Vacc TS 2017-18 (65yr UP)/PF 180 MCG/0.5 ML Syringe IM ONE (10:00)
== END 2017-03-31 10:35 | disposition home or self-care (01) | DRG 872 ==
LOC: JP.ED 00:16 → JP.MS 03:03
PROVIDERS: ADMIT Internal Medicine; ATTEND Internal Medicine
DX: A41.9 Sepsis, unspecified organism (principal); N30.00 Acute cystitis without hematuria; B37.89 Other sites of candidiasis; I10 Essential (primary) hypertension; F17.210 Nicotine dependence, cigarettes, uncomplicated; R50.9 Fever, unspecified; R06.02 Shortness of breath; K21.9 Gastro-esophageal reflux disease without esophagitis; H54.7 Unspecified visual loss; Z87.440 Personal history of urinary (tract) infections; Z88.5 Allergy status to narcotic agent
CPT/HCPCS: 36415; 71010 ×2; 80053; 81001; 83605; 85025; 86140; 87040 ×2; 87086; 87804 ×2; A9270; J1956; J7040 ×2; 87088; 87186; 94640; 96361; 96374; 99284; 99285-25; C9113; J1650; J7620

== ENCOUNTER 2021-01-28 09:13 | Inpatient (IN) | payer MEDICARE ==
[2021-01-28] MEDS ORDERED: Albuterol/Ipratropium 3.0-0.5 MG/3 ML Neb Soln NEB ONE (09:17)
[2021-01-28] MEDS ORDERED: Albuterol/Ipratropium 3.0-0.5 MG/3 ML Neb Soln ONE (09:17)
[2021-01-28] MEDS: Levofloxacin/Dextrose 5%-Water 750 MG in Premix Bag 1 BAG IV SCH (09:24)
[2021-01-28] MEDS ORDERED: Morphine 4 MG/ML Syringe IVPUSH ONE (09:24)
--- NOTE | 2021-01-28 09:40 | EDM.PDOC ---
ED HPI GENERAL MEDICAL PROBLEM - General Chief Complaint: Respiratory Problem Stated Complaint: [facility] Time Seen by Provider: 01/28/21 09:15 Source of Information: Reports: EMS, RN Notes Reviewed History Limitations: Reports: Respiratory Distress - History of Present Illness INITIAL COMMENTS - FREE TEXT/NARRATIVE: 75-year-old female presents emergency department today in respiratory distress she is brought in by EMS services. Limited history is obtained she cannot speak in single word sentences EMS states she has known history of COPD has had difficulty breathing for the last day or so. She is unvaccinated for Covid no known exposures - Related Data Allergies Allergy/AdvReac Type Severity Reaction Status Date / Time codeine Allergy Hives Verified 01/28/21 09:42 Home Meds: Home Meds Pantoprazole Sodium [Protonix] 20 mg PO DAILY 01/09/16 [History] amLODIPine [Norvasc] 5 mg PO DAILY 01/09/16 [History] Albuterol [Ventolin HFA] 2 puff IH QID 01/28/21 [History] Rosuvastatin [Crestor] 20 mg PO DAILY 01/28/21 [History] polyethylene glycoL 3350 [MiraLAX] 17 gm PO DAILY 01/28/21 [History] Past Medical History HEENT History: Reports: Allergic Rhinitis, Cataract, Impaired Vision Cardiovascular History: Reports: High Cholesterol, Hypertension Respiratory History: Reports: COPD Gastrointestinal History: Reports: GERD Genitourinary History: Reports: Urinary Incontinence, UTI, Recurrent 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: Psychiatric History: Reports: Depression Endocrine/Metabolic History: Reports: Obesity/BMI 30+ - Infectious Disease History Infectious Disease History: Reports: Chicken Pox Other Infectious Disease History: pt unknown - Past Surgical History GI Surgical History: Reports: Appendectomy Social & Family History - Caffeine Use Caffeine Use: Reports: Coffee ED ROS GENERAL - Review of Systems Review Of Systems: Unable To Obtain Reason Not Obtained: Respiratory failure ED EXAM, GENERAL - Physical Exam Exam: See Below Exam Limited By: Respiratory Distress General Appearance: Obtunded, Severe Distress Respiratory/Chest: Respiratory Distress, Rhonchi, Wheezing, Accessory Muscle Use Cardiovascular: Tachycardia GI/Abdominal: Soft, Non-Tender #1 Interpretation EKG Date: 01/28/21 Time: 10:25 Rhythm: Other (tachycardia) Rate (Beats/Min): 140 Jeannette: LAD-Left Jeannette Deviation P-Wave: Absent QRS: Normal ST-T: Normal QT: Prolonged Comparison: Change From Previous EKG Course - Vital Signs Last Recorded V/S: Last Vital Signs Temp 96.7 F L 01/28/21 09:53 Pulse 132 H 01/28/21 12:38 Resp 28 H 01/28/21 12:38 BP 97/69 01/28/21 12:38 Pulse Ox 98 01/28/21 12:38 - Orders/Labs/Meds Orders: Active Orders 24 hr Category Date Time Status Pastor Catheter Insertion [Insert Urinary Catheter] [OM. Care 01/28/21 10:30 Ordered PC] Q24H RT Aerosol Therapy [RC] ASDIRECTED Care 01/28/21 11:44 Active Urinary Catheter Assessment [RC] ASDIRECTED Care 01/28/21 10:19 Active Vital Signs [RC] Q1H Care 01/28/21 09:16 Active CULTURE BLOOD [BC] Urgent Lab 01/28/21 09:37 Received CULTURE BLOOD [BC] Urgent Lab 01/28/21 09:52 Received Albuterol [Proventil Neb Soln] Med 01/28/21 11:44 Active 2.5 mg NEB Q2H PRN Levofloxacin/Dextrose 5%-Water [Levaquin in D5W 750 MG/ Med 01/28/21 09:30 Act sammi 150 ML] 750 mg Premix Bag 1 bag IV Q24H Norepinephrine [Levophed] 4 mg Med 01/28/21 09:45 Active Dextrose 5% in Water 246 ml IV TITRATE Blood Culture x2 Reflex Set [OM.PC] Urgent Oth 01/28/21 09:16 Ordered EKG 12 Lead [EK] Stat Ther 01/28/21 09:38 Ordered Medication Orders Albuterol (Albuterol 0.083% 2.5 Mg/3 Ml Neb Soln) 2.5 mg NEB Q2H PRN PRN Reason: Wheezing Last Admin: 01/28/21 12:02 Dose: 2.5 mg Documented by: BETI Levofloxacin/Dextrose 750 mg/ (Premix) 150 mls @ 100 mls/hr IV Q24H JOSE CRUZ Last Admin: 01/28/21 09:24 Dose: 100 mls/hr Documented by: [id number] Norepinephrine Bitartrate 4 mg (/ Dextrose/Water) 250 mls @ 7.5 mls/hr IV TITRATE JOSE CRUZ; Protocol Last Titration: 01/28/21 14:03 Dose: 5 mcg/min, 18.75 mls/hr Documented by: Titration: 01/28/21 12:06 Dose: 4 mcg/min, 15 mls/hr Documented by: Titration: 01/28/21 11:40 Dose: 3 mcg/min, 11.25 mls/hr Documented by: Admin: 01/28/21 10:05 Dose: 2 mcg/min, 7.5 mls/hr Documented by: BETI Labs: Laboratory Tests 01/28/21 01/28/21 01/28/21 Range/Units 09:19 09:45 10:03 WBC 23.4 H (4.5-11.0) K/uL RBC 4.35 (3.30-5.50) M/uL Hgb 14.0 (12.0-15.0) g/dL Hct 41.5 (36.0-48.0) % MCV 95 (80-98) fL MCH 32 H (27-31) pg MCHC 34 (32-36) % Plt Count 317 (150-400) K/uL Neut % (Auto) 91.6 H (36-66) % Lymph % (Auto) 5.7 L (24-44) % Kinney % (Auto) 2.1 (2-6) % Eos % (Auto) 0.3 L (2-4) % Baso % (Auto) 0.3 (0-1) % Puncture Site Lt radial ABG pH 7.304 L (7.350-7.450) ABG pCO2 36.0 (35.0-42.0) mmHg ABG pO2 155.0 H (75.0-100.0) mmHg ABG HCO3 17.4 L (22.0-26.0) mmol/L ABG Total CO2 15.6 L (21.0-25.0) mmol/L ABG O2 Saturation 98.9 H (95.0-98.0) % ABG O2 Content 19.3 (15.0-23.0) %vol ABG Base Excess -7.8 mm/L ABG Hemoglobin 14.4 (12.0-16.0) g/dL ABG Oxyhemoglobin 94.3 % ABG Carboxyhemoglobin 3.9 H (0.0-1.6) % ABG Methemoglobin 0.8 % Grupo Test Passed O2 Delivery Device Simple mask Oxygen Flow Rate L Sodium (140-148) mmol/L Potassium (3.6-5.2) mmol/L Chloride (100-108) mmol/L Carbon Dioxide (21-32) mmol/L Anion Gap (5.0-14.0) mmol/L BUN (7-18) mg/dL Creatinine (0.6-1.0) mg/dL Est Cr Clr Drug Dosing mL/min Estimated GFR (MDRD) (>60) Glucose (74-106) mg/dL Lactic Acid (0.4-2.0) mmol/L Calcium (8.5-10.1) mg/dL Total Bilirubin (0.2-1.0) mg/dL AST (15-37) U/L ALT (12-78) U/L Alkaline Phosphatase (46-116) U/L Troponin I (0.000-0.056) ng/mL C-Reactive Protein (0.0-0.3) mg/dL NT-Pro-B Natriuret Pep (5-125) pg/mL Total Protein (6.4-8.2) g/dL Albumin (3.4-5.0) g/dL Globulin (2.3-3.5) g/dL Albumin/Globulin Ratio (1.2-2.2) Procalcitonin ng/mL Urine Color (YELLOW) Urine Appearance (CLEAR) Urine pH (5.0-8.0) Ur Specific Everson (1.008-1.030) Urine Protein (NEGATIVE) mg/dL Urine Glucose (UA) (NEGATIVE) mg/dL Urine Ketones (NEGATIVE) mg/dL Urine Occult Blood (NEGATIVE) Urine Nitrite (NEGATIVE) Urine Bilirubin (NEGATIVE) Urine Urobilinogen (0.2-1.0) EU/dL Ur Leukocyte Esterase (NEGATIVE) Urine RBC (0-5) Urine WBC (0-5) Ur Epithelial Cells Amorphous Sediment Urine Bacteria Urine Mucus Urine Other SARS CoV-2 RNA Rapid SANJIV Negative 01/28/21 01/28/21 01/28/21 Range/Units 10:03 10:03 10:03 WBC (4.5-11.0) K/uL RBC (3.30-5.50) M/uL Hgb (12.0-15.0) g/dL Hct (36.0-48.0) % MCV (80-98) fL MCH (27-31) pg MCHC (32-36) % Plt Count (150-400) K/uL Neut % (Auto) (36-66) % Lymph % (Auto) (24-44) % Kinney % (Auto) (2-6) % Eos % (Auto) (2-4) % Baso % (Auto) (0-1) % Puncture Site ABG pH (7.350-7.450) ABG pCO2 (35.0-42.0) mmHg ABG pO2 (75.0-100.0) mmHg ABG HCO3 (22.0-26.0) mmol/L ABG Total CO2 (21.0-25.0) mmol/L ABG O2 Saturation (95.0-98.0) % ABG O2 Content (15.0-23.0) %vol ABG Base Excess mm/L ABG Hemoglobin (12.0-16.0) g/dL ABG Oxyhemoglobin % ABG Carboxyhemoglobin (0.0-1.6) % ABG Methemoglobin % Grupo Test O2 Delivery Device Oxygen Flow Rate L Sodium 139 L (140-148) mmol/L Potassium 4.0 (3.6-5.2) mmol/L Chloride 104 (100-108) mmol/L Carbon Dioxide 22 (21-32) mmol/L Anion Gap 17.0 H (5.0-14.0) mmol/L BUN 11 (7-18) mg/dL Creatinine 1.4 H (0.6-1.0) mg/dL Est Cr Clr Drug Dosing 32.20 mL/min Estimated GFR (MDRD) 37 L (>60) Glucose 239 H (74-106) mg/dL Lactic Acid 1.6 (0.4-2.0) mmol/L Calcium 8.2 L (8.5-10.1) mg/dL Total Bilirubin 0.8 D (0.2-1.0) mg/dL AST 129 H D (15-37) U/L ALT 127 H (12-78) U/L Alkaline Phosphatase 110 (46-116) U/L Troponin I (0.000-0.056) ng/mL C-Reactive Protein 0.94 H (0.0-0.3) mg/dL NT-Pro-B Natriuret Pep (5-125) pg/mL Total Protein 6.5 (6.4-8.2) g/dL Albumin 3.0 L (3.4-5.0) g/dL Globulin 3.5 (2.3-3.5) g/dL Albumin/Globulin Ratio 0.9 L (1.2-2.2) Procalcitonin < 0.05 ng/mL Urine Color (YELLOW) Urine Appearance (CLEAR) Urine pH (5.0-8.0) Ur Specific Everson (1.008-1.030) Urine Protein (NEGATIVE) mg/dL Urine Glucose (UA) (NEGATIVE) mg/dL Urine Ketones (NEGATIVE) mg/dL Urine Occult Blood (NEGATIVE) Urine Nitrite (NEGATIVE) Urine Bilirubin (NEGATIVE) Urine Urobilinogen (0.2-1.0) EU/dL Ur Leukocyte Esterase (NEGATIVE) Urine RBC (0-5) Urine WBC (0-5) Ur Epithelial Cells Amorphous Sediment Urine Bacteria Urine Mucus Urine Other SARS CoV-2 RNA Rapid SANJIV 01/28/21 01/28/21 01/28/21 Range/Units 10:03 10:03 12:00 WBC (4.5-11.0) K/uL RBC (3.30-5.50) M/uL Hgb (12.0-15.0) g/dL Hct (36.0-48.0) % MCV (80-98) fL MCH (27-31) pg MCHC (32-36) % Plt Count (150-400) K/uL Neut % (Auto) (36-66) % Lymph % (Auto) (24-44) % Kinney % (Auto) (2-6) % Eos % (Auto) (2-4) % Baso % (Auto) (0-1) % Puncture Site Rt radial ABG pH 7.384 (7.350-7.450) ABG pCO2 35.3 (35.0-42.0) mmHg ABG pO2 86.2 (75.0-100.0) mmHg ABG HCO3 20.6 L (22.0-26.0) mmol/L ABG Total CO2 18.4 L (21.0-25.0) mmol/L ABG O2 Saturation 96.5 (95.0-98.0) % ABG O2 Content 17.7 (15.0-23.0) %vol ABG Base Excess -3.3 mm/L ABG Hemoglobin 13.4 (12.0-16.0) g/dL ABG Oxyhemoglobin 93.8 % ABG Carboxyhemoglobin 2.1 H (0.0-1.6) % ABG Methemoglobin 0.7 % Grupo Test Passed O2 Delivery Device Bipap Oxygen Flow Rate L Sodium (140-148) mmol/L Potassium (3.6-5.2) mmol/L Chloride (100-108) mmol/L Carbon Dioxide (21-32) mmol/L Anion Gap (5.0-14.0) mmol/L BUN (7-18) mg/dL Creatinine (0.6-1.0) mg/dL Est Cr Clr Drug Dosing mL/min Estimated GFR (MDRD) (>60) Glucose (74-106) mg/dL Lactic Acid (0.4-2.0) mmol/L Calcium (8.5-10.1) mg/dL Total Bilirubin (0.2-1.0) mg/dL AST (15-37) U/L ALT (12-78) U/L Alkaline Phosphatase (46-116) U/L Troponin I 0.154 H* (0.000-0.056) ng/mL C-Reactive Protein (0.0-0.3) mg/dL NT-Pro-B Natriuret Pep 9103 H (5-125) pg/mL Total Protein (6.4-8.2) g/dL Albumin (3.4-5.0) g/dL Globulin (2.3-3.5) g/dL Albumin/Globulin Ratio (1.2-2.2) Procalcitonin ng/mL Urine Color (YELLOW) Urine Appearance (CLEAR) Urine pH (5.0-8.0) Ur Specific Everson (1.008-1.030) Urine Protein (NEGATIVE) mg/dL Urine Glucose (UA) (NEGATIVE) mg/dL Urine Ketones (NEGATIVE) mg/dL Urine Occult Blood (NEGATIVE) Urine Nitrite (NEGATIVE) Urine Bilirubin (NEGATIVE) Urine Urobilinogen (0.2-1.0) EU/dL Ur Leukocyte Esterase (NEGATIVE) Urine RBC (0-5) Urine WBC (0-5) Ur Epithelial Cells Amorphous Sediment Urine Bacteria Urine Mucus Urine Other SARS CoV-2 RNA Rapid SANJIV 01/28/21 01/28/21 Range/Units 12:58 13:00 WBC (4.5-11.0) K/uL RBC (3.30-5.50) M/uL Hgb (12.0-15.0) g/dL Hct (36.0-48.0) % MCV (80-98) fL MCH (27-31) pg MCHC (32-36) % Plt Count (150-400) K/uL Neut % (Auto) (36-66) % Lymph % (Auto) (24-44) % Kinney % (Auto) (2-6) % Eos % (Auto) (2-4) % Baso % (Auto) (0-1) % Puncture Site ABG pH (7.350-7.450) ABG pCO2 (35.0-42.0) mmHg ABG pO2 (75.0-100.0) mmHg ABG HCO3 (22.0-26.0) mmol/L ABG Total CO2 (21.0-25.0) mmol/L ABG O2 Saturation (95.0-98.0) % ABG O2 Content (15.0-23.0) %vol ABG Base Excess mm/L ABG Hemoglobin (12.0-16.0) g/dL ABG Oxyhemoglobin % ABG Carboxyhemoglobin (0.0-1.6) % ABG Methemoglobin % Grupo Test O2 Delivery Device Oxygen Flow Rate L Sodium (140-148) mmol/L Potassium (3.6-5.2) mmol/L Chloride (100-108) mmol/L Carbon Dioxide (21-32) mmol/L Anion Gap (5.0-14.0) mmol/L BUN (7-18) mg/dL Creatinine (0.6-1.0) mg/dL Est Cr Clr Drug Dosing mL/min Estimated GFR (MDRD) (>60) Glucose (74-106) mg/dL Lactic Acid (0.4-2.0) mmol/L Calcium (8.5-10.1) mg/dL Total Bilirubin (0.2-1.0) mg/dL AST (15-37) U/L ALT (12-78) U/L Alkaline Phosphatase (46-116) U/L Troponin I 0.597 H* (0.000-0.056) ng/mL C-Reactive Protein (0.0-0.3) mg/dL NT-Pro-B Natriuret Pep (5-125) pg/mL Total Protein (6.4-8.2) g/dL Albumin (3.4-5.0) g/dL Globulin (2.3-3.5) g/dL Albumin/Globulin Ratio (1.2-2.2) Procalcitonin ng/mL Urine Color Yellow (YELLOW) Urine Appearance Slightly cloudy A (CLEAR) Urine pH 7.0 (5.0-8.0) Ur Specific Everson 1.025 (1.008-1.030) Urine Protein >=300 H (NEGATIVE) mg/dL Urine Glucose (UA) Negative (NEGATIVE) mg/dL Urine Ketones Negative (NEGATIVE) mg/dL Urine Occult Blood Trace-lysed H (NEGATIVE) Urine Nitrite Negative (NEGATIVE) Urine Bilirubin Negative (NEGATIVE) Urine Urobilinogen 0.2 (0.2-1.0) EU/dL Ur Leukocyte Esterase Negative (NEGATIVE) Urine RBC 0-5 (0-5) Urine WBC 0-5 (0-5) Ur Epithelial Cells Few Amorphous Sediment Few Urine Bacteria Few Urine Mucus Occasional Urine Other See note SARS CoV-2 RNA Rapid SANJIV Meds: Medications Generic Name Dose Route Start Last Admin Trade Name Freq PRN Reason Stop Dose Admin Albuterol 2.5 mg 01/28/21 11:44 01/28/21 12:02 Albuterol 0.083% 2.5 Mg/3 Ml Neb Soln NEB 2.5 mg Q2H PRN Administration Wheezing Levofloxacin/Dextrose 750 mg/ 150 mls @ 100 mls/hr 01/28/21 09:30 01/28/21 09:24 Premix IV 100 mls/hr Q24H JOSE CRUZ Administration Norepinephrine Bitartrate 4 mg 250 mls @ 7.5 mls/hr 01/28/21 09:45 01/28/21 14:03 / Dextrose/Water IV 5 mcg/min TITRATE JOSE CRUZ 18.75 mls/hr Titration Protocol 2 MCG/MIN Discontinued Medications Generic Name Dose Route Start Last Admin Trade Name Freq PRN Reason Stop Dose Admin Albuterol/Ipratropium 3 ml 01/28/21 09:17 01/28/21 09:20 Albuterol/Ipratropium 3.0-0.5 Mg/3 Ml Neb Soln NEB 01/28/21 09:18 3 ml ONETIME ONE Administration Albuterol/Ipratropium Confirm 01/28/21 09:17 01/28/21 09:20 Albuterol/Ipratropium 3.0-0.5 Mg/3 Ml Neb Soln Administered 01/28/21 09:18 Not Given Dose 3 ml .ROUTE .STK-MED ONE Digoxin 125 mcg 01/28/21 14:40 Digoxin 500 Mcg/2 Ml Amp IVPUSH 01/28/21 14:41 ONETIME ONE Furosemide 80 mg 01/28/21 11:48 01/28/21 12:05 Furosemide 40 Mg/4 Ml Vial IVPUSH 01/28/21 11:49 80 mg ONETIME ONE Administration Lactated Ringer's 1,000 mls @ 999 mls/hr 01/28/21 10:19 01/28/21 10:32 Ringers, Lactated IV 01/28/21 11:19 999 mls/hr BOLUS ONE Administration Metoprolol Tartrate 25 mg 01/28/21 14:40 Metoprolol Tartrate 25 Mg Tab PO 01/28/21 14:41 ONETIME ONE Morphine Sulfate 4 mg 01/28/21 09:24 01/28/21 09:32 Morphine 4 Mg/Ml Syringe IVPUSH 01/28/21 09:25 4 mg ONETIME ONE Administration Departure - Departure Time of Disposition: 14:46 Disposition: Admitted As Inpatient 68 Condition: Poor Clinical Impression: Congestive heart failure Qualifiers: Heart failure type: other Qualified Code(s): I50.9 - Heart failure, unspecified - Discharge Information Referrals: PCP,None [Primary Care Provider] - Forms: ED Department Discharge Critical Care Note - Critical Care Note Total Time (mins): 45 Sepsis Event Note (ED) - Focused Exam Vital Signs: Vital Signs Temp Pulse Resp BP BP Pulse Ox 01/28/21 12:38 132 H 28 H 97/69 98 01/28/21 12:00 139 H 26 H 89/56 L 98 01/28/21 11:00 135 H 20 88/63 L 99 09/07/21 10:50 30 H 100 01/28/21 10:13 100 01/28/21 09:53 96.7 F L 134 H 50 H 118/35 L 97/47 L 99 01/28/21 09:46 134 H 50 H 97/47 L 99 01/28/21 09:16 96.7 F L 136 H 45 H 118/35 L 97/47 L 100 - My Orders Last 24 Hours: My Active Orders 01/28/21 09:16 Vital Signs [RC] Q1H Blood Culture x2 Reflex Set [OM.PC] Urgent 01/28/21 09:30 Levofloxacin/Dextrose 5%-Water [Levaquin in D5W 750 MG/150 ML] 750 mg Premix Bag 1 bag IV Q24H 01/28/21 09:37 CULTURE BLOOD [BC] Urgent 01/28/21 09:38 EKG 12 Lead [EK] Stat 01/28/21 09:45 Norepinephrine [Levophed] 4 mg Dextrose 5% in Water 246 ml IV TITRATE 01/28/21 09:52 CULTURE BLOOD [BC] Urgent 01/28/21 10:19 Urinary Catheter Assessment [RC] ASDIRECTED 01/28/21 10:30 Pastor Catheter Insertion [Insert Urinary Catheter] [OM.PC] Q24H - Assessment/Plan Last 24 Hours: My Active Orders 01/28/21 09:16 Vital Signs [RC] Q1H Blood Culture x2 Reflex Set [OM.PC] Urgent 01/28/21 09:30 Levofloxacin/Dextrose 5%-Water [Levaquin in D5W 750 MG/150 ML] 750 mg Premix Bag 1 bag IV Q24H 01/28/21 09:37 CULTURE BLOOD [BC] Urgent 01/28/21 09:38 EKG 12 Lead [EK] Stat 01/28/21 09:45 Norepinephrine [Levophed] 4 mg Dextrose 5% in Water 246 ml IV TITRATE 01/28/21 09:52 CULTURE BLOOD [BC] Urgent 01/28/21 10:19 Urinary Catheter Assessment [RC] ASDIRECTED 01/28/21 10:30 Pastor Catheter Insertion [Insert Urinary Catheter] [OM.PC] Q24H Plan: Assessment Acuity = acute Site and laterality = CHF exacerbation with respiratory failure causing hypoxia Etiology = unknown Manifestations = none Location of injury = Home Lab values = WBC elevated 23.4 consistent leukocytosis pH 7.3 on both tests PCO2 initially 155 down to 80 1:06 hour BiPAP bicarb 17.4 increasing to 20.6 creatinine elevated 1.4 consistent chronic renal failure stage G3 B glucose elevated to 39 consistent hyperglycemia lactic acid normal 1.6 AST 129 ALT 127 consistent elevated liver enzymes troponin initially 0.154 increasing to 0.597 probably related to stress response in the acute hypoxemia and respiratory failure BNP markedly elevated 9103 consistent with a congestive heart failure type pattern procalcitonin was negative urinalysis unremarkable Covid was negative CT scan consistent with congestive heart failure Plan Discussed case hospitalist on-call he agreed to evaluate patient emergency department for admission 14:30 8 This note was dictated using [employer] voice recognition software please call with any questions on syntax or grammar.
[2021-01-28] MEDS: Norepinephrine 4 MG in Dextrose 5% in Water 246 ML IV SCH ×4 (10:05→23:18)
--- NOTE | 2021-01-28 10:18 | CR ---
CHEST: Portable 01/28/2021 at 10:12 AM CLINICAL HISTORY:Hypoxic COMPARISON:2017 FINDINGS: Heart size is upper limits of normal. There is pulmonary vascular cephalization. There is mild interstitial prominence. Some of this is chronic. No effusions are seen Impression: Borderline cardiomegaly with mild vascular cephalization. Some of this may be positional Mild interstitial prominence. Some of this is chronic but some mild interstitial edema/infiltrate could represent some CHF or possibly pneumonitis
[2021-01-28] MEDS ORDERED: Lactated Ringers 1,000 ML IV ONE (10:19)
[2021-01-28] MEDS ORDERED: Furosemide 40 MG/4 ML VIAL IVPUSH ONE ×2 (11:48→18:11)
[2021-01-28] MEDS: Albuterol 0.083% 2.5 MG/3 ML Neb Soln NEB PRN (12:02)
--- NOTE | 2021-01-28 12:37 | CT ---
Chest wo Cont CLINICAL HISTORY: Hypoxic TECHNIQUE: Thin section axial contiguous tomographic sections were taken through the chest without IV iodinated contrast administration. Coronal and sagittal images were reconstructed. Auto dosage reduction and iterative reconstruction techniques employed. FINDINGS: There is moderate breathing motion. Lung detail is secured. No pulmonary mass or significant infiltrate is identified. Patient has small bilateral pleural effusions. There are 2 adjacent nodular foci in the left upper lobe on image #31 there is also a 4 mm subpleural nodule posterior to this. The heart is enlarged. There is a 2.4 x 1.8 cm nodule off the lower portion of the left lobe of the thyroid. No mediastinal mass or suspicious lymphadenopathy is seen. There are atherosclerotic changes in the aorta. Scans into the upper abdomen show moderately atrophic right kidney. There are calcified gallstones. IMPRESSION: Limited study due to significant breathing motion No significant pulmonary mass or infiltrate is identified Cardiomegaly with bilateral pleural effusions may represent an element of CHF
[2021-01-28] MEDS ORDERED: Digoxin 500 MCG/2 ML Amp IVPUSH ONE (14:40)
[2021-01-28] MEDS ORDERED: Metoprolol Tartrate 25 MG Tab PO ONE (14:40)
--- NOTE | 2021-01-28 14:55 | PCM.HP.2 ---
H&P History of Present Illness - General Date of Service: 01/28/21 Admit Problem/Dx: Admission Diagnosis/Problem Admission Diagnosis/Problem CHF, Congestive heart failure Source of Information: Patient, Provider History Limitations: Reports: No Limitations - History of Present Illness Initial Comments - Free Text/Narative: CC: I couldn't breath! HPI: Calista presents to the emergency room with rapidly progressive shortness of breath. She reports about 3 days of not feeling well with increasing shortness of breath and fatigue. Symptoms progressed rapidly this morning before calling 911. She does have a cough with whitish sputum. No hemoptysis. She does not report any chest pain. She does not think she has had any fevers or chills. Yesterday she was short of breath with minimal activity and this morning she was very short of breath even at rest. She is not aware of any sick contacts. She has not traveled recently. No recent medication changes. No lower extremity swelling. Work-up in the emergency room revealed rapid atrial fibrillation as well as acute respiratory failure. There was concern for CHF based on examination and imaging. Respiratory failure was significant enough that she required noninvasive ventilation. She did receive furosemide in the emergency room as well as nebulizers and levofloxacin. Initial troponin was mildly elevated. W ith the diuresis she has improved some but has required norepinephrine to maintain her blood pressure. Second troponin was more elevated at 0.5. She will be admitted to the intensive care unit for further management. - Related Data Allergies/Adverse Reactions: Allergies Allergy/AdvReac Type Severity Reaction Status Date / Time codeine Allergy Hives Verified 01/28/21 09:42 Home Medications: Home Meds Pantoprazole Sodium [Protonix] 20 mg PO DAILY 01/09/16 [History] amLODIPine [Norvasc] 5 mg PO DAILY 01/09/16 [History] Albuterol [Ventolin HFA] 2 puff IH QID 01/28/21 [History] Rosuvastatin [Crestor] 20 mg PO DAILY 01/28/21 [History] polyethylene glycoL 3350 [MiraLAX] 17 gm PO DAILY 01/28/21 [History] Past Medical History HEENT History: Reports: Allergic Rhinitis, Cataract, Impaired Vision Cardiovascular History: Reports: High Cholesterol, Hypertension Respiratory History: Reports: COPD Gastrointestinal History: Reports: GERD Genitourinary History: Reports: Urinary Incontinence, UTI, 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: Psychiatric History: Reports: Depression Endocrine/Metabolic History: Reports: Obesity/BMI 30+ - Infectious Disease History Infectious Disease History: Reports: Chicken Pox Other Infectious Disease History: pt unknown - Past Surgical History HEENT Surgical History: Reports: Cataract Surgery, Oral Surgery, Other (See Below) Other HEENT Surgeries/Procedures: dentures but doesnt wear them GI Surgical History: Reports: Appendectomy Dermatological Surgical History: Reports: None Social & Family History - Family History Cardiac: Denies: CAD - Tobacco Use Tobacco Use Comment: unknown - Caffeine Use Caffeine Use: Reports: Coffee Caffeine Use Comment: unknown - Alcohol Use Alcohol Use History: No H&P Review of Systems - Review of Systems: Review Of Systems: See Below Free Text/Narrative: A complete 12 point review of systems was obtained. Pertinent positives and negatives are noted in the history of present illness. All other systems were reviewed and were negative except as noted. Exam - Exam Exam: See Below - Vital Signs Vital Signs: Last Vital Signs Temp 35.9 C L 01/28/21 09:53 Pulse 132 H 01/28/21 12:38 Resp 28 H 01/28/21 12:38 BP 97/69 01/28/21 12:38 Pulse Ox 98 01/28/21 12:38 Weight: 81.647 kg - Exam Quality Assessment: Supplemental Oxygen General: Alert, Oriented, Cooperative. No: Mild Distress HEENT: Conjunctiva Clear. No: Mucosa Moist & [place] (dry), Scleral Icterus Neck: Supple, Trachea Midline, JVD Lungs: Normal Respiratory Effort, Rhonchi (diffuse), Wheezing (mild exp bilaterally ) Cardiovascular: Irregular Rhythm, Tachycardia. No: Systolic Murmur GI/Abdominal Exam: Normal Bowel Sounds, Soft, Non-Tender, No Distention Extremities: No Pedal Edema. No: Increased Warmth Peripheral Pulses: 2+: Dorsalis Pedis (L), Dorsalis Pedis (R) Skin: Warm, Dry Neuro Extensive - Mental Status: Alert, Oriented x3, Nl Response to Commands Neuro Extensive - Motor, Sensory, Reflexes: No: Dysarthria, Abnormal Motor, Tremor Psychiatric: Alert, Normal Affect - Patient Data Lab Results Last 24 hrs: Laboratory Results - last 24 hr 01/28/21 01/28/21 01/28/21 Range/Units 09:19 09:45 10:03 WBC 23.4 H (4.5-11.0) K/uL RBC 4.35 (3.30-5.50) M/uL Hgb 14.0 (12.0-15.0) g/dL Hct 41.5 (36.0-48.0) % MCV 95 (80-98) fL MCH 32 H (27-31) pg MCHC 34 (32-36) % Plt Count 317 (150-400) K/uL Neut % (Auto) 91.6 H (36-66) % Lymph % (Auto) 5.7 L (24-44) % [place] % (Auto) 2.1 (2-6) % Eos % (Auto) 0.3 L (2-4) % Baso % (Auto) 0.3 (0-1) % Puncture Site Lt radial ABG pH 7.304 L (7.350-7.450) ABG pCO2 36.0 (35.0-42.0) mmHg ABG pO2 155.0 H (75.0-100.0) mmHg ABG HCO3 17.4 L (22.0-26.0) mmol/L ABG Total CO2 15.6 L (21.0-25.0) mmol/L ABG O2 Saturation 98.9 H (95.0-98.0) % ABG O2 Content 19.3 (15.0-23.0) %vol ABG Base Excess -7.8 mm/L ABG Hemoglobin 14.4 (12.0-16.0) g/dL ABG Oxyhemoglobin 94.3 % ABG Carboxyhemoglobin 3.9 H (0.0-1.6) % ABG Methemoglobin 0.8 % Grupo Test Passed O2 Delivery Device Simple mask Oxygen Flow Rate L Sodium (140-148) mmol/L Potassium (3.6-5.2) mmol/L Chloride (100-108) mmol/L Carbon Dioxide (21-32) mmol/L Anion Gap (5.0-14.0) mmol/L BUN (7-18) mg/dL Creatinine (0.6-1.0) mg/dL Est Cr Clr Drug Dosing mL/min Estimated GFR (MDRD) (>60) Glucose (74-106) mg/dL Lactic Acid (0.4-2.0) mmol/L Calcium (8.5-10.1) mg/dL Total Bilirubin (0.2-1.0) mg/dL AST (15-37) U/L ALT (12-78) U/L Alkaline Phosphatase (46-116) U/L Troponin I (0.000-0.056) ng/mL C-Reactive Protein (0.0-0.3) mg/dL NT-Pro-B Natriuret Pep (5-125) pg/mL Total Protein (6.4-8.2) g/dL Albumin (3.4-5.0) g/dL Globulin (2.3-3.5) g/dL Albumin/Globulin Ratio (1.2-2.2) Procalcitonin ng/mL Urine Color (YELLOW) Urine Appearance (CLEAR) Urine pH (5.0-8.0) Ur Specific [place] (1.008-1.030) Urine Protein (NEGATIVE) mg/dL Urine Glucose (UA) (NEGATIVE) mg/dL Urine Ketones (NEGATIVE) mg/dL Urine Occult Blood (NEGATIVE) Urine Nitrite (NEGATIVE) Urine Bilirubin (NEGATIVE) Urine Urobilinogen (0.2-1.0) EU/dL Ur Leukocyte Esterase (NEGATIVE) Urine RBC (0-5) Urine WBC (0-5) Ur Epithelial Cells Amorphous Sediment Urine Bacteria Urine Mucus Urine Other SARS CoV-2 RNA Rapid SANJIV Negative 01/28/21 01/28/21 01/28/21 Range/Units 10:03 10:03 10:03 WBC (4.5-11.0) K/uL RBC (3.30-5.50) M/uL Hgb (12.0-15.0) g/dL Hct (36.0-48.0) % MCV (80-98) fL MCH (27-31) pg MCHC (32-36) % Plt Count (150-400) K/uL Neut % (Auto) (36-66) % Lymph % (Auto) (24-44) % [place] % (Auto) (2-6) % Eos % (Auto) (2-4) % Baso % (Auto) (0-1) % Puncture Site ABG pH (7.350-7.450) ABG pCO2 (35.0-42.0) mmHg ABG pO2 (75.0-100.0) mmHg ABG HCO3 (22.0-26.0) mmol/L ABG Total CO2 (21.0-25.0) mmol/L ABG O2 Saturation (95.0-98.0) % ABG O2 Content (15.0-23.0) %vol ABG Base Excess mm/L ABG Hemoglobin (12.0-16.0) g/dL ABG Oxyhemoglobin % ABG Carboxyhemoglobin (0.0-1.6) % ABG Methemoglobin % Grupo Test O2 Delivery Device Oxygen Flow Rate L Sodium 139 L (140-148) mmol/L Potassium 4.0 (3.6-5.2) mmol/L Chloride 104 (100-108) mmol/L Carbon Dioxide 22 (21-32) mmol/L Anion Gap 17.0 H (5.0-14.0) mmol/L BUN 11 (7-18) mg/dL Creatinine 1.4 H (0.6-1.0) mg/dL Est Cr Clr Drug Dosing 32.20 mL/min Estimated GFR (MDRD) 37 L (>60) Glucose 239 H (74-106) mg/dL Lactic Acid 1.6 (0.4-2.0) mmol/L Calcium 8.2 L (8.5-10.1) mg/dL Total Bilirubin 0.8 D (0.2-1.0) mg/dL AST 129 H D (15-37) U/L ALT 127 H (12-78) U/L Alkaline Phosphatase 110 (46-116) U/L Troponin I (0.000-0.056) ng/mL C-Reactive Protein 0.94 H (0.0-0.3) mg/dL NT-Pro-B Natriuret Pep (5-125) pg/mL Total Protein 6.5 (6.4-8.2) g/dL Albumin 3.0 L (3.4-5.0) g/dL Globulin 3.5 (2.3-3.5) g/dL Albumin/Globulin Ratio 0.9 L (1.2-2.2) Procalcitonin < 0.05 ng/mL Urine Color (YELLOW) Urine Appearance (CLEAR) Urine pH (5.0-8.0) Ur Specific [place] (1.008-1.030) Urine Protein (NEGATIVE) mg/dL Urine Glucose (UA) (NEGATIVE) mg/dL Urine Ketones (NEGATIVE) mg/dL Urine Occult Blood (NEGATIVE) Urine Nitrite (NEGATIVE) Urine Bilirubin (NEGATIVE) Urine Urobilinogen (0.2-1.0) EU/dL Ur Leukocyte Esterase (NEGATIVE) Urine RBC (0-5) Urine WBC (0-5) Ur Epithelial Cells Amorphous Sediment Urine Bacteria Urine Mucus Urine Other SARS CoV-2 RNA Rapid SANJIV 01/28/21 01/28/21 01/28/21 Range/Units 10:03 10:03 12:00 WBC (4.5-11.0) K/uL RBC (3.30-5.50) M/uL Hgb (12.0-15.0) g/dL Hct (36.0-48.0) % MCV (80-98) fL MCH (27-31) pg MCHC (32-36) % Plt Count (150-400) K/uL Neut % (Auto) (36-66) % Lymph % (Auto) (24-44) % [place] % (Auto) (2-6) % Eos % (Auto) (2-4) % Baso % (Auto) (0-1) % Puncture Site Rt radial ABG pH 7.384 (7.350-7.450) ABG pCO2 35.3 (35.0-42.0) mmHg ABG pO2 86.2 (75.0-100.0) mmHg ABG HCO3 20.6 L (22.0-26.0) mmol/L ABG Total CO2 18.4 L (21.0-25.0) mmol/L ABG O2 Saturation 96.5 (95.0-98.0) % ABG O2 Content 17.7 (15.0-23.0) %vol ABG Base Excess -3.3 mm/L ABG Hemoglobin 13.4 (12.0-16.0) g/dL ABG Oxyhemoglobin 93.8 % ABG Carboxyhemoglobin 2.1 H (0.0-1.6) % ABG Methemoglobin 0.7 % Grupo Test Passed O2 Delivery Device Bipap Oxygen Flow Rate L Sodium (140-148) mmol/L Potassium (3.6-5.2) mmol/L Chloride (100-108) mmol/L Carbon Dioxide (21-32) mmol/L Anion Gap (5.0-14.0) mmol/L BUN (7-18) mg/dL Creatinine (0.6-1.0) mg/dL Est Cr Clr Drug Dosing mL/min Estimated GFR (MDRD) (>60) Glucose (74-106) mg/dL Lactic Acid (0.4-2.0) mmol/L Calcium (8.5-10.1) mg/dL Total Bilirubin (0.2-1.0) mg/dL AST (15-37) U/L ALT (12-78) U/L Alkaline Phosphatase (46-116) U/L Troponin I 0.154 H* (0.000-0.056) ng/mL C-Reactive Protein (0.0-0.3) mg/dL NT-Pro-B Natriuret Pep 9103 H (5-125) pg/mL Total Protein (6.4-8.2) g/dL Albumin (3.4-5.0) g/dL Globulin (2.3-3.5) g/dL Albumin/Globulin Ratio (1.2-2.2) Procalcitonin ng/mL Urine Color (YELLOW) Urine Appearance (CLEAR) Urine pH (5.0-8.0) Ur Specific [place] (1.008-1.030) Urine Protein (NEGATIVE) mg/dL Urine Glucose (UA) (NEGATIVE) mg/dL Urine Ketones (NEGATIVE) mg/dL Urine Occult Blood (NEGATIVE) Urine Nitrite (NEGATIVE) Urine Bilirubin (NEGATIVE) Urine Urobilinogen (0.2-1.0) EU/dL Ur Leukocyte Esterase (NEGATIVE) Urine RBC (0-5) Urine WBC (0-5) Ur Epithelial Cells Amorphous Sediment Urine Bacteria Urine Mucus Urine Other SARS CoV-2 RNA Rapid SANJIV 01/28/21 01/28/21 Range/Units 12:58 13:00 WBC (4.5-11.0) K/uL RBC (3.30-5.50) M/uL Hgb (12.0-15.0) g/dL Hct (36.0-48.0) % MCV (80-98) fL MCH (27-31) pg MCHC (32-36) % Plt Count (150-400) K/uL Neut % (Auto) (36-66) % Lymph % (Auto) (24-44) % [place] % (Auto) (2-6) % Eos % (Auto) (2-4) % Baso % (Auto) (0-1) % Puncture Site ABG pH (7.350-7.450) ABG pCO2 (35.0-42.0) mmHg ABG pO2 (75.0-100.0) mmHg ABG HCO3 (22.0-26.0) mmol/L ABG Total CO2 (21.0-25.0) mmol/L ABG O2 Saturation (95.0-98.0) % ABG O2 Content (15.0-23.0) %vol ABG Base Excess mm/L ABG Hemoglobin (12.0-16.0) g/dL ABG Oxyhemoglobin % ABG Carboxyhemoglobin (0.0-1.6) % ABG Methemoglobin % Grupo Test O2 Delivery Device Oxygen Flow Rate L Sodium (140-148) mmol/L Potassium (3.6-5.2) mmol/L Chloride (100-108) mmol/L Carbon Dioxide (21-32) mmol/L Anion Gap (5.0-14.0) mmol/L BUN (7-18) mg/dL Creatinine (0.6-1.0) mg/dL Est Cr Clr Drug Dosing mL/min Estimated GFR (MDRD) (>60) Glucose (74-106) mg/dL Lactic Acid (0.4-2.0) mmol/L Calcium (8.5-10.1) mg/dL Total Bilirubin (0.2-1.0) mg/dL AST (15-37) U/L ALT (12-78) U/L Alkaline Phosphatase (46-116) U/L Troponin I 0.597 H* (0.000-0.056) ng/mL C-Reactive Protein (0.0-0.3) mg/dL NT-Pro-B Natriuret Pep (5-125) pg/mL Total Protein (6.4-8.2) g/dL Albumin (3.4-5.0) g/dL Globulin (2.3-3.5) g/dL Albumin/Globulin Ratio (1.2-2.2) Procalcitonin ng/mL Urine Color Yellow (YELLOW) Urine Appearance Slightly cloudy A (CLEAR) Urine pH 7.0 (5.0-8.0) Ur Specific [place] 1.025 (1.008-1.030) Urine Protein >=300 H (NEGATIVE) mg/dL Urine Glucose (UA) Negative (NEGATIVE) mg/dL Urine Ketones Negative (NEGATIVE) mg/dL Urine Occult Blood Trace-lysed H (NEGATIVE) Urine Nitrite Negative (NEGATIVE) Urine Bilirubin Negative (NEGATIVE) Urine Urobilinogen 0.2 (0.2-1.0) EU/dL Ur Leukocyte Esterase Negative (NEGATIVE) Urine RBC 0-5 (0-5) Urine WBC 0-5 (0-5) Ur Epithelial Cells Few Amorphous Sediment Few Urine Bacteria Few Urine Mucus Occasional Urine Other See note SARS CoV-2 RNA Rapid SANJIV Result Diagrams: 01/28/21 10:03 01/28/21 10:03 Imaging Impressions Last 24 hrs: CXR -images personally reviewed -there appeared to be small bilateral pleural effusions as well as cardiomegaly and either fluid or possibly a right lower lung infiltrate. No obvious mass. Chest CT-images personally reviewed-does appear to be some interstitial edema though this is small in quantity. She does have small bilateral pleural effusio ns and cardiomegaly. No obvious pericardial effusion Bedside cardiac ultrasound-I personally obtained images at the bedside-there does appear to be a reduction in her ejection fraction with global hypokinesis of the apex though the mid and basilar segments appear to have a normal contractility. This appears consistent with a stress cardiomyopathy. Right ventricle is not dilated. There is no pericardial effusion. Exam somewhat limited because of body habitus and rapid atrial fibrillation. IVC is dilated and does not collapse with respiration. #1 Interpretation EKG Date: 01/28/21 Rhythm: A-Fib Rate (Beats/Min): 140 Dexter: Normal P-Wave: Variable QRS: Normal ST-T: Normal QT: Prolonged Comparison: Change From Previous EKG (previous EKG's have shown NSR) EKG Interpretation Comments: This EKG image was personally reviewed Sepsis Event Note - Evaluation Sepsis Screening Result: No Definite Risk - Focused Exam Vital Signs: Vital Signs Temp Pulse Resp BP BP Pulse Ox 01/28/21 12:38 132 H 28 H 97/69 98 01/28/21 12:00 139 H 26 H 89/56 L 98 01/28/21 11:00 135 H 20 88/63 L 99 01/28/21 10:50 30 H 100 01/28/21 10:13 100 01/28/21 09:53 35.9 C L 134 H 50 H 118/35 L 97/47 L 99 01/28/21 09:46 134 H 50 H 97/47 L 99 01/28/21 09:16 35.9 C L 136 H 45 H 118/35 L 97/47 L 100 *Q Meaningful Use (ADM) - VTE Risk Assess *Q Each Risk Factor Represents 1 Point: Obesity ( BMI > 25 kg/m2), Acute myocardial infarction, Congestive heart failure (CHF) Total Score 1 Point Risk Factors: 3 Each Risk Factor Represents 2 Points: Age 60 - 74 Years Total Score 2 Point Risk Factors: 2 Each Risk Factor Represents 3 Points: None Total Score 3 Point Risk Factors: 0 Each Risk Factor Represents 5 Points: None Total Score 5 Point Risk Factors: 0 Venous Thromboembolism Risk Factor Score *Q: 5 - Problem List (1) Congestive heart failure SNOMED Code(s): 52305812 ICD Code: I50.9 - HEART FAILURE, UNSPECIFIED Status: Acute Current Visit: Yes Qualifiers: Heart failure type: unspecified Heart failure chronicity: acute Qualified Code(s): I50.9 - Heart failure, unspecified (2) Acute respiratory failure with hypoxia SNOMED Code(s): 76904258, 380972640 ICD Code: J96.01 - ACUTE RESPIRATORY FAILURE WITH HYPOXIA Status: Acute Current Visit: Yes (3) Atrial fibrillation with rapid ventricular response SNOMED Code(s): 096229700544269 ICD Code: I48.91 - UNSPECIFIED ATRIAL FIBRILLATION Status: Acute Current Visit: Yes (4) NSTEMI (non-ST elevated myocardial infarction) SNOMED Code(s): 50046407 ICD Code: I21.4 - NON-ST ELEVATION (NSTEMI) MYOCARDIAL INFARCTION Status: Acute Current Visit: Yes (5) Mita rash of groin SNOMED Code(s): 784615633, 295443498 ICD Code: B37.89 - OTHER SITES OF CANDIDIASIS Status: Acute Priority: Medium Current Visit: No (6) CKD (chronic kidney disease), stage III SNOMED Code(s): 380561135 ICD Code: N18.3 - CHRONIC KIDNEY DISEASE, STAGE 3 (MODERATE) * DO NOT USE * Status: Chronic Current Visit: No Qualifiers: Chronic kidney disease stage 3 subtype: stage 3b (GFR 30-44) Qualified Code(s): N18.32 - Chronic kidney disease, stage 3b Problem List Initiated/Reviewed/Updated: Yes Orders Last 24hrs: Active Orders 24 hr Category Date Time Status Patient Status Manage Transfer [TRANSFER] Routine ADT 01/28/21 14:42 Ordered Pastor Catheter Insertion [Insert Urinary Catheter] [OM. Care 01/28/21 10:30 Ordered PC] Q24H RT Aerosol Therapy [RC] ASDIRECTED Care 01/28/21 11:44 Active Urinary Catheter Assessment [RC] ASDIRECTED Care 01/28/21 10:19 Active Vital Signs [RC] Q1H Care 01/28/21 09:16 Active CULTURE BLOOD [BC] Urgent Lab 01/28/21 09:37 Received CULTURE BLOOD [BC] Urgent Lab 01/28/21 09:52 Received Albuterol [Proventil Neb Soln] Med 01/28/21 11:44 Active 2.5 mg NEB Q2H PRN Levofloxacin/Dextrose 5%-Water [Levaquin in D5W 750 MG/ Med 01/28/21 09:30 Active 150 ML] 750 mg Premix Bag 1 bag IV Q24H Norepinephrine [Levophed] 4 mg Med 01/28/21 09:45 Active Dextrose 5% in Water 246 ml IV TITRATE Blood Culture x2 Reflex Set [OM.PC] Urgent Oth 01/28/21 09:16 Ordered Resuscitation Status Routine Resus Stat 01/28/21 14:44 Ordered EKG 12 Lead [EK] Stat Ther 01/28/21 09:38 Ordered Medication Orders Albuterol (Albuterol 0.083% 2.5 Mg/3 Ml Neb Soln) 2.5 mg NEB Q2H PRN PRN Reason: Wheezing Last Admin: 01/28/21 12:02 Dose: 2.5 mg Documented by: BETI Levofloxacin/Dextrose 750 mg/ (Premix) 150 mls @ 100 mls/hr IV Q24H JOSE CRUZ Last Admin: 01/28/21 09:24 Dose: 100 mls/hr Documented by: BETI Norepinephrine Bitartrate 4 mg (/ Dextrose/Water) 250 mls @ 7.5 mls/hr IV TITRATE JOSE CRUZ; Protocol Last Titration: 01/28/21 14:03 Dose: 5 mcg/min, 18.75 mls/hr Documented by: [id number] Titration: 01/28/21 12:06 Dose: 4 mcg/min, 15 mls/hr Documented by: [id number] Titration: 01/28/21 11:40 Dose: 3 mcg/min, 11.25 mls/hr Documented by: [id number] Admin: 01/28/21 10:05 Dose: 2 mcg/min, 7.5 mls/hr Documented by: [id number] Assessment/Plan Comment:: ASSESSMENT AND PLAN - Congestive heart failure-complicated by significant acute respiratory failure with hypoxia. Last echo was 6 years ago and did have a normal ejection fraction. Concern for stress cardiomyopathy based on bedside ultrasound. Respiratory status improving with diuresis but still requiring high flow nasal cannula. Unclear if CHF led to the A. fib or vice versa. -Reassess volume status later, consider additional diuresis -Norepinephrine to maintain blood pressure for diuresis -Formal echocardiogram when available -Rate control of atrial fibrillation as below Non-ST elevation myocardial infarction versus demand ischemia-troponin has taken a decent jump but elevation remains relatively low. No chest pain. She was quite hypoxic on arrival. Responding well to therapy so far. EKG did not suggest ischemia. -Heparin x24 to 48 hours -Metoprolol for improved rate control Atrial fibrillation with rapid ventricular response-unclear if this provoked the heart failure or was provoked by CHF. Has not received rate control as of yet. No history of atrial fibrillation. Hypotension limiting how aggressive we can be with medications at this time. -Oral metoprolol x1 -IV digoxin x1 -Cardiac monitoring -Consider IV diltiazem versus amiodarone Stage III chronic kidney disease-stable. Tobacco dependence-encourage cessation Maintenance issues - -DVT prophylaxis-Heparin -GI prophylaxis-PPI -[id number] -Pastor catheter-placed for strict intake and output monitoring in a critical patient CODE STATUS -no CPR but intubation okay Admission justification -this patient will be admitted for inpatient services and is medically appropriate meeting medical necessity for inpatient admission as outlined in my documentation. I reasonably expect the patient will require inpatient services that span a period time over 2 midnights. I reasonably expect this patient to be discharged or transferred within 96 hours [facility]. Disposition -I anticipate discharge home after the hospital stay Primary care physician - Soheila Mims M.D. - Mortality Measure Prognosis:: Good
[2021-01-28] MEDS ORDERED: Ondansetron 4 MG Tab.DIS PO PRN (16:23)
[2021-01-28] MEDS ORDERED: Acetaminophen 325 MG Tab PO PRN (16:23)
[2021-01-28] MEDS ORDERED: Ondansetron 4 MG/2 ML SDV IV PRN (16:23)
[2021-01-28] MEDS ORDERED: LORazepam 2 MG/ML SDV IVPUSH PRN (16:23)
[2021-01-28] MEDS ORDERED: Magnesium Hydroxide 400 MG/5 ML Susp 30 ML Cup PO PRN (16:23)
[2021-01-28] MEDS ORDERED: Polyethylene Glycol 3350 Powder 17 GM Packet PO PRN (16:23)
[2021-01-28] MEDS: Heparin Sodium/D5W 25,000 UNITS/500 ML BAG IV SCH (16:52)
[2021-01-28] MEDS ORDERED: Heparin Sodium 5,000 Units/ML Vial IVPUSH ONE (17:00)
[2021-01-28] MEDS: Nystatin Topical Powder 15 GM Bottle TOP SCH (21:17)
[2021-01-28] MEDS: Metoprolol Tartrate 25 MG Tab PO SCH (21:17)
[2021-01-28] MEDS: Melatonin 3 MG Tab PO SCH (21:17)
[2021-01-28] MEDS ORDERED: Heparin Sodium 5,000 Units/ML Vial ONE (23:57)
[2021-01-29] MEDS: Albuterol 0.083% 2.5 MG/3 ML Neb Soln NEB PRN ×2 (01:15→05:24)
[2021-01-29] MEDS ORDERED: Furosemide 40 MG/4 ML VIAL IVPUSH ONE (02:54)
[2021-01-29] MEDS ORDERED: Furosemide 100 MG/10 ML SDV ONE (02:56)
[2021-01-29] MEDS: Morphine 2 MG/ML SYRINGE IVPUSH PRN ×6 (03:10→22:12)
[2021-01-29] MEDS: LORazepam 2 MG/ML SDV IVPUSH PRN ×4 (03:20→20:51)
[2021-01-29] MEDS ORDERED: methylPREDNISolone Sodium Succinate 125 MG/2 ML SDV IVPUSH ONE (04:09)
[2021-01-29] MEDS: Levalbuterol HCl 1.25 MG/3 ML Neb NEB PRN (04:26)
[2021-01-29] MEDS ORDERED: Potassium Chloride 100 ML ONE (05:27)
[2021-01-29] MEDS ORDERED: Lidocaine 1% 2 ML ONE (05:27)
[2021-01-29] MEDS ORDERED: Potassium Chloride 20 MEQ, Lidocaine 1% 2 ML in Sodium Chloride 0.9% 100 ML IV SCH (05:30)
[2021-01-29] MEDS: Levalbuterol HCl 1.25 MG/3 ML Neb NEB SCH ×4 (07:00→20:35)
[2021-01-29] MEDS: Pantoprazole 40 MG Tab.CR PO SCH (07:44)
[2021-01-29] MEDS: Rosuvastatin 10 MG Tab PO SCH ×2 (07:44→08:26)
--- NOTE | 2021-01-29 08:53 | PCM.PN ---
- General Info Date of Service: 01/29/21 Subjective Update: Patient initially responded well to diuresis last night with improving respiratory status. She had a coughing spell and during that episode converted to normal sinus rhythm and has remained there. She has not had any chest pain. She did continue to require vasopressor support overnight but this was minimal and stable. Around 330 this morning she had an episode with progressive dyspnea as well as increasing tachypnea. I evaluated her around 4 AM and she was noted to have significant bronchospasm and poor airflow. ABG at the time showed a pH of 7.0 and a PCO2 of 80. She received nebulizer therapy with both albuterol and Xopenex as well as some steroids and was started on noninvasive ventilation. This did settle things down. Repeat blood gases after half hour on noninvasive ventilation showed a pH of 7.25 and a PCO2 down to 52 and then later had essentially normal blood gases. Troponin peaked at about 3.95 this morning. She has not had any chest pain. Tolerating heparin drip. - Review of Systems General: Reports: Weakness. Denies: Fever Pulmonary: Reports: Shortness of Breath Cardiovascular: Denies: Chest Pain - Patient Data Vitals - Most Recent: Last Vital Signs Temp 36.2 C 01/29/21 08:00 Pulse 70 01/29/21 08:00 Resp 30 H 01/29/21 08:00 BP 85/48 L 01/29/21 08:00 Pulse Ox 97 01/29/21 08:00 Weight - Most Recent: 81.6 kg I&O - Last 24 Hours: Intake & Output 01/28/21 01/29/21 01/29/21 22:59 06:59 14:59 Intake Total 400 488 Output Total 2100 375 Balance -1700 113 Lab Results Last 24 Hours: Laboratory Results - last 24 hr 01/28/21 01/28/21 01/28/21 Range/Units 09:19 09:45 10:03 WBC 23.4 H (4.5-11.0) K/uL RBC 4.35 (3.30-5.50) M/uL Hgb 14.0 (12.0-15.0) g/dL Hct 41.5 (36.0-48.0) % MCV 95 (80-98) fL MCH 32 H (27-31) pg MCHC 34 (32-36) % Plt Count 317 (150-400) K/uL Neut % (Auto) 91.6 H (36-66) % Lymph % (Auto) 5.7 L (24-44) % [place] % (Auto) 2.1 (2-6) % Eos % (Auto) 0.3 L (2-4) % Baso % (Auto) 0.3 (0-1) % APTT (27.0-36.0) sec Puncture Site Lt radial ABG pH 7.304 L (7.350-7.450) ABG pCO2 36.0 (35.0-42.0) mmHg ABG pO2 155.0 H (75.0-100.0) mmHg ABG HCO3 17.4 L (22.0-26.0) mmol/L ABG Total CO2 15.6 L (21.0-25.0) mmol/L ABG O2 Saturation 98.9 H (95.0-98.0) % ABG O2 Content 19.3 (15.0-23.0) %vol ABG Base Excess -7.8 mm/L ABG Hemoglobin 14.4 (12.0-16.0) g/dL ABG Oxyhemoglobin 94.3 % ABG Carboxyhemoglobin 3.9 H (0.0-1.6) % ABG Methemoglobin 0.8 % Grupo Test Passed O2 Delivery Device Simple mask Oxygen Flow Rate L Sodium (140-148) mmol/L Potassium (3.6-5.2) mmol/L Chloride (100-108) mmol/L Carbon Dioxide (21-32) mmol/L Anion Gap (5.0-14.0) mmol/L BUN (7-18) mg/dL Creatinine (0.6-1.0) mg/dL Est Cr Clr Drug Dosing mL/min Estimated GFR (MDRD) (>60) Glucose (74-106) mg/dL Lactic Acid (0.4-2.0) mmol/L Calcium (8.5-10.1) mg/dL Magnesium (1.8-2.4) mg/dL Total Bilirubin (0.2-1.0) mg/dL AST (15-37) U/L ALT (12-78) U/L Alkaline Phosphatase (46-116) U/L Troponin I (0.000-0.056) ng/mL C-Reactive Protein (0.0-0.3) mg/dL NT-Pro-B Natriuret Pep (5-125) pg/mL Total Protein (6.4-8.2) g/dL Albumin (3.4-5.0) g/dL Globulin (2.3-3.5) g/dL Albumin/Globulin Ratio (1.2-2.2) Procalcitonin ng/mL Urine Color (YELLOW) Urine Appearance (CLEAR) Urine pH (5.0-8.0) Ur Specific [place] (1.008-1.030) Urine Protein (NEGATIVE) mg/dL Urine Glucose (UA) (NEGATIVE) mg/dL Urine Ketones (NEGATIVE) mg/dL Urine Occult Blood (NEGATIVE) Urine Nitrite (NEGATIVE) Urine Bilirubin (NEGATIVE) Urine Urobilinogen (0.2-1.0) EU/dL Ur Leukocyte Esterase (NEGATIVE) Urine RBC (0-5) Urine WBC (0-5) Ur Epithelial Cells Amorphous Sediment Urine Bacteria Urine Mucus Urine Other SARS CoV-2 RNA Rapid SANJIV Negative 01/28/21 01/28/21 01/28/21 Range/Units 10:03 10:03 10:03 WBC (4.5-11.0) K/uL RBC (3.30-5.50) M/uL Hgb (12.0-15.0) g/dL Hct (36.0-48.0) % MCV (80-98) fL MCH (27-31) pg MCHC (32-36) % Plt Count (150-400) K/uL Neut % (Auto) (36-66) % Lymph % (Auto) (24-44) % [place] % (Auto) (2-6) % Eos % (Auto) (2-4) % Baso % (Auto) (0-1) % APTT (27.0-36.0) sec Puncture Site ABG pH (7.350-7.450) ABG pCO2 (35.0-42.0) mmHg ABG pO2 (75.0-100.0) mmHg ABG HCO3 (22.0-26.0) mmol/L ABG Total CO2 (21.0-25.0) mmol/L ABG O2 Saturation (95.0-98.0) % ABG O2 Content (15.0-23.0) %vol ABG Base Excess mm/L ABG Hemoglobin (12.0-16.0) g/dL ABG Oxyhemoglobin % ABG Carboxyhemoglobin (0.0-1.6) % ABG Methemoglobin % Grupo Test O2 Delivery Device Oxygen Flow Rate L Sodium 139 L (140-148) mmol/L Potassium 4.0 (3.6-5.2) mmol/L Chloride 104 (100-108) mmol/L Carbon Dioxide 22 (21-32) mmol/L Anion Gap 17.0 H (5.0-14.0) mmol/L BUN 11 (7-18) mg/dL Creatinine 1.4 H (0.6-1.0) mg/dL Est Cr Clr Drug Dosing 32.20 mL/min Estimated GFR (MDRD) 37 L (>60) Glucose 239 H (74-106) mg/dL Lactic Acid 1.6 (0.4-2.0) mmol/L Calcium 8.2 L (8.5-10.1) mg/dL Magnesium (1.8-2.4) mg/dL Total Bilirubin 0.8 D (0.2-1.0) mg/dL AST 129 H D (15-37) U/L ALT 127 H (12-78) U/L Alkaline Phosphatase 110 (46-116) U/L Troponin I (0.000-0.056) ng/mL C-Reactive Protein 0.94 H (0.0-0.3) mg/dL NT-Pro-B Natriuret Pep (5-125) pg/mL Total Protein 6.5 (6.4-8.2) g/dL Albumin 3.0 L (3.4-5.0) g/dL Globulin 3.5 (2.3-3.5) g/dL Albumin/Globulin Ratio 0.9 L (1.2-2.2) Procalcitonin < 0.05 ng/mL Urine Color (YELLOW) Urine Appearance (CLEAR) Urine pH (5.0-8.0) Ur Specific [place] (1.008-1.030) Urine Protein (NEGATIVE) mg/dL Urine Glucose (UA) (NEGATIVE) mg/dL Urine Ketones (NEGATIVE) mg/dL Urine Occult Blood (NEGATIVE) Urine Nitrite (NEGATIVE) Urine Bilirubin (NEGATIVE) Urine Urobilinogen (0.2-1.0) EU/dL Ur Leukocyte Esterase (NEGATIVE) Urine RBC (0-5) Urine WBC (0-5) Ur Epithelial Cells Amorphous Sediment Urine Bacteria Urine Mucus Urine Other SARS CoV-2 RNA Rapid SANJIV 01/28/21 01/28/21 01/28/21 Range/Units 10:03 10:03 10:03 WBC (4.5-11.0) K/uL RBC (3.30-5.50) M/uL Hgb (12.0-15.0) g/dL Hct (36.0-48.0) % MCV (80-98) fL MCH (27-31) pg MCHC (32-36) % Plt Count (150-400) K/uL Neut % (Auto) (36-66) % Lymph % (Auto) (24-44) % [place] % (Auto) (2-6) % Eos % (Auto) (2-4) % Baso % (Auto) (0-1) % APTT 24.3 L (27.0-36.0) sec Puncture Site ABG pH (7.350-7.450) ABG pCO2 (35.0-42.0) mmHg ABG pO2 (75.0-100.0) mmHg ABG HCO3 (22.0-26.0) mmol/L ABG Total CO2 (21.0-25.0) mmol/L ABG O2 Saturation (95.0-98.0) % ABG O2 Content (15.0-23.0) %vol ABG Base Excess mm/L ABG Hemoglobin (12.0-16.0) g/dL ABG Oxyhemoglobin % ABG Carboxyhemoglobin (0.0-1.6) % ABG Methemoglobin % Grupo Test O2 Delivery Device Oxygen Flow Rate L Sodium (140-148) mmol/L Potassium (3.6-5.2) mmol/L Chloride (100-108) mmol/L Carbon Dioxide (21-32) mmol/L Anion Gap (5.0-14.0) mmol/L BUN (7-18) mg/dL Creatinine (0.6-1.0) mg/dL Est Cr Clr Drug Dosing mL/min Estimated GFR (MDRD) (>60) Glucose (74-106) mg/dL Lactic Acid (0.4-2.0) mmol/L Calcium (8.5-10.1) mg/dL Magnesium (1.8-2.4) mg/dL Total Bilirubin (0.2-1.0) mg/dL AST (15-37) U/L ALT (12-78) U/L Alkaline Phosphatase (46-116) U/L Troponin I 0.154 H* (0.000-0.056) ng/mL C-Reactive Protein (0.0-0.3) mg/dL NT-Pro-B Natriuret Pep 9103 H (5-125) pg/mL Total Protein (6.4-8.2) g/dL Albumin (3.4-5.0) g/dL Globulin (2.3-3.5) g/dL Albumin/Globulin Ratio (1.2-2.2) Procalcitonin ng/mL Urine Color (YELLOW) Urine Appearance (CLEAR) Urine pH (5.0-8.0) Ur Specific [place] (1.008-1.030) Urine Protein (NEGATIVE) mg/dL Urine Glucose (UA) (NEGATIVE) mg/dL Urine Ketones (NEGATIVE) mg/dL Urine Occult Blood (NEGATIVE) Urine Nitrite (NEGATIVE) Urine Bilirubin (NEGATIVE) Urine Urobilinogen (0.2-1.0) EU/dL Ur Leukocyte Esterase (NEGATIVE) Urine RBC (0-5) Urine WBC (0-5) Ur Epithelial Cells Amorphous Sediment Urine Bacteria Urine Mucus Urine Other SARS CoV-2 RNA Rapid SANJIV 01/28/21 01/28/21 01/28/21 Range/Units 12:00 12:58 13:00 WBC (4.5-11.0) K/uL RBC (3.30-5.50) M/uL Hgb (12.0-15.0) g/dL Hct (36.0-48.0) % MCV (80-98) fL MCH (27-31) pg MCHC (32-36) % Plt Count (150-400) K/uL Neut % (Auto) (36-66) % Lymph % (Auto) (24-44) % [place] % (Auto) (2-6) % Eos % (Auto) (2-4) % Baso % (Auto) (0-1) % APTT (27.0-36.0) sec Puncture Site Rt radial ABG pH 7.384 (7.350-7.450) ABG pCO2 35.3 (35.0-42.0) mmHg ABG pO2 86.2 (75.0-100.0) mmHg ABG HCO3 20.6 L (22.0-26.0) mmol/L ABG Total CO2 18.4 L (21.0-25.0) mmol/L ABG O2 Saturation 96.5 (95.0-98.0) % ABG O2 Content 17.7 (15.0-23.0) %vol ABG Base Excess -3.3 mm/L ABG Hemoglobin 13.4 (12.0-16.0) g/dL ABG Oxyhemoglobin 93.8 % ABG Carboxyhemoglobin 2.1 H (0.0-1.6) % ABG Methemoglobin 0.7 % Grupo Test Passed O2 Delivery Device Bipap Oxygen Flow Rate L Sodium (140-148) mmol/L Potassium (3.6-5.2) mmol/L Chloride (100-108) mmol/L Carbon Dioxide (21-32) mmol/L Anion Gap (5.0-14.0) mmol/L BUN (7-18) mg/dL Creatinine (0.6-1.0) mg/dL Est Cr Clr Drug Dosing mL/min Estimated GFR (MDRD) (>60) Glucose (74-106) mg/dL Lactic Acid (0.4-2.0) mmol/L Calcium (8.5-10.1) mg/dL Magnesium (1.8-2.4) mg/dL Total Bilirubin (0.2-1.0) mg/dL AST (15-37) U/L ALT (12-78) U/L Alkaline Phosphatase (46-116) U/L Troponin I 0.597 H* (0.000-0.056) ng/mL C-Reactive Protein (0.0-0.3) mg/dL NT-Pro-B Natriuret Pep (5-125) pg/mL Total Protein (6.4-8.2) g/dL Albumin (3.4-5.0) g/dL Globulin (2.3-3.5) g/dL Albumin/Globulin Ratio (1.2-2.2) Procalcitonin ng/mL Urine Color Yellow (YELLOW) Urine Appearance Slightly cloudy A (CLEAR) Urine pH 7.0 (5.0-8.0) Ur Specific [place] 1.025 (1.008-1.030) Urine Protein >=300 H (NEGATIVE) mg/dL Urine Glucose (UA) Negative (NEGATIVE) mg/dL Urine Ketones Negative (NEGATIVE) mg/dL Urine Occult Blood Trace-lysed H (NEGATIVE) Urine Nitrite Negative (NEGATIVE) Urine Bilirubin Negative (NEGATIVE) Urine Urobilinogen 0.2 (0.2-1.0) EU/dL Ur Leukocyte Esterase Negative (NEGATIVE) Urine RBC 0-5 (0-5) Urine WBC 0-5 (0-5) Ur Epithelial Cells Few Amorphous Sediment Few Urine Bacteria Few Urine Mucus Occasional Urine Other See note SARS CoV-2 RNA Rapid SANJIV 01/28/21 01/28/21 01/28/21 Range/Units 17:00 17:00 23:05 WBC (4.5-11.0) K/uL RBC (3.30-5.50) M/uL Hgb (12.0-15.0) g/dL Hct (36.0-48.0) % MCV (80-98) fL MCH (27-31) pg MCHC (32-36) % Plt Count (150-400) K/uL Neut % (Auto) (36-66) % Lymph % (Auto) (24-44) % [place] % (Auto) (2-6) % Eos % (Auto) (2-4) % Baso % (Auto) (0-1) % APTT 40.8 H (27.0-36.0) sec Puncture Site ABG pH (7.350-7.450) ABG pCO2 (35.0-42.0) mmHg ABG pO2 (75.0-100.0) mmHg ABG HCO3 (22.0-26.0) mmol/L ABG Total CO2 (21.0-25.0) mmol/L ABG O2 Saturation (95.0-98.0) % ABG O2 Content (15.0-23.0) %vol ABG Base Excess mm/L ABG Hemoglobin (12.0-16.0) g/dL ABG Oxyhemoglobin % ABG Carboxyhemoglobin (0.0-1.6) % ABG Methemoglobin % Grupo Test O2 Delivery Device Oxygen Flow Rate L Sodium (140-148) mmol/L Potassium (3.6-5.2) mmol/L Chloride (100-108) mmol/L Carbon Dioxide (21-32) mmol/L Anion Gap (5.0-14.0) mmol/L BUN (7-18) mg/dL Creatinine (0.6-1.0) mg/dL Est Cr Clr Drug Dosing mL/min Estimated GFR (MDRD) (>60) Glucose (74-106) mg/dL Lactic Acid (0.4-2.0) mmol/L Calcium (8.5-10.1) mg/dL Magnesium 1.9 (1.8-2.4) mg/dL Total Bilirubin (0.2-1.0) mg/dL AST (15-37) U/L ALT (12-78) U/L Alkaline Phosphatase (46-116) U/L Troponin I 1.812 H* (0.000-0.056) ng/mL C-Reactive Protein (0.0-0.3) mg/dL NT-Pro-B Natriuret Pep (5-125) pg/mL Total Protein (6.4-8.2) g/dL Albumin (3.4-5.0) g/dL Globulin (2.3-3.5) g/dL Albumin/Globulin Ratio (1.2-2.2) Procalcitonin ng/mL Urine Color (YELLOW) Urine Appearance (CLEAR) Urine pH (5.0-8.0) Ur Specific [place] (1.008-1.030) Urine Protein (NEGATIVE) mg/dL Urine Glucose (UA) (NEGATIVE) mg/dL Urine Ketones (NEGATIVE) mg/dL Urine Occult Blood (NEGATIVE) Urine Nitrite (NEGATIVE) Urine Bilirubin (NEGATIVE) Urine Urobilinogen (0.2-1.0) EU/dL Ur Leukocyte Esterase (NEGATIVE) Urine RBC (0-5) Urine WBC (0-5) Ur Epithelial Cells Amorphous Sediment Urine Bacteria Urine Mucus Urine Other SARS CoV-2 RNA Rapid SANJIV 01/28/21 01/29/21 01/29/21 Range/Units 23:05 03:00 03:00 WBC 15.2 H (4.5-11.0) K/uL RBC 4.30 (3.30-5.50) M/uL Hgb 13.6 (12.0-15.0) g/dL Hct 40.3 (36.0-48.0) % MCV 94 (80-98) fL MCH 32 H (27-31) pg MCHC 34 (32-36) % Plt Count 298 (150-400) K/uL Neut % (Auto) (36-66) % Lymph % (Auto) (24-44) % [place] % (Auto) (2-6) % Eos % (Auto) (2-4) % Baso % (Auto) (0-1) % APTT 56.5 H (27.0-36.0) sec Puncture Site ABG pH (7.350-7.450) ABG pCO2 (35.0-42.0) mmHg ABG pO2 (75.0-100.0) mmHg ABG HCO3 (22.0-26.0) mmol/L ABG Total CO2 (21.0-25.0) mmol/L ABG O2 Saturation (95.0-98.0) % ABG O2 Content (15.0-23.0) %vol ABG Base Excess mm/L ABG Hemoglobin (12.0-16.0) g/dL ABG Oxyhemoglobin % ABG Carboxyhemoglobin (0.0-1.6) % ABG Methemoglobin % Grupo Test O2 Delivery Device Oxygen Flow Rate L Sodium (140-148) mmol/L Potassium (3.6-5.2) mmol/L Chloride (100-108) mmol/L Carbon Dioxide (21-32) mmol/L Anion Gap (5.0-14.0) mmol/L BUN (7-18) mg/dL Creatinine (0.6-1.0) mg/dL Est Cr Clr Drug Dosing mL/min Estimated GFR (MDRD) (>60) Glucose (74-106) mg/dL Lactic Acid (0.4-2.0) mmol/L Calcium (8.5-10.1) mg/dL Magnesium (1.8-2.4) mg/dL Total Bilirubin (0.2-1.0) mg/dL AST (15-37) U/L ALT (12-78) U/L Alkaline Phosphatase (46-116) U/L Troponin I 3.921 H* (0.000-0.056) ng/mL C-Reactive Protein (0.0-0.3) mg/dL NT-Pro-B Natriuret Pep (5-125) pg/mL Total Protein (6.4-8.2) g/dL Albumin (3.4-5.0) g/dL Globulin (2.3-3.5) g/dL Albumin/Globulin Ratio (1.2-2.2) Procalcitonin ng/mL Urine Color (YELLOW) Urine Appearance (CLEAR) Urine pH (5.0-8.0) Ur Specific [place] (1.008-1.030) Urine Protein (NEGATIVE) mg/dL Urine Glucose (UA) (NEGATIVE) mg/dL Urine Ketones (NEGATIVE) mg/dL Urine Occult Blood (NEGATIVE) Urine Nitrite (NEGATIVE) Urine Bilirubin (NEGATIVE) Urine Urobilinogen (0.2-1.0) EU/dL Ur Leukocyte Esterase (NEGATIVE) Urine RBC (0-5) Urine WBC (0-5) Ur Epithelial Cells Amorphous Sediment Urine Bacteria Urine Mucus Urine Other SARS CoV-2 RNA Rapid SANJIV 01/29/21 01/29/21 01/29/21 Range/Units 03:00 04:05 05:15 WBC (4.5-11.0) K/uL RBC (3.30-5.50) M/uL Hgb (12.0-15.0) g/dL Hct (36.0-48.0) % MCV (80-98) fL MCH (27-31) pg MCHC (32-36) % Plt Count (150-400) K/uL Neut % (Auto) (36-66) % Lymph % (Auto) (24-44) % [place] % (Auto) (2-6) % Eos % (Auto) (2-4) % Baso % (Auto) (0-1) % APTT (27.0-36.0) sec Puncture Site R radial R radial ABG pH 7.098 L* 7.262 L (7.350-7.450) ABG pCO2 80.8 H* 52.2 H (35.0-42.0) mmHg ABG pO2 70.2 L 82.4 (75.0-100.0) mmHg ABG HCO3 23.9 22.8 (22.0-26.0) mmol/L ABG Total CO2 22.7 20.7 L (21.0-25.0) mmol/L ABG O2 Saturation 84.0 L 93.7 L (95.0-98.0) % ABG O2 Content 17.7 18.3 (15.0-23.0) %vol ABG Base Excess -8.3 -4.4 mm/L ABG Hemoglobin 15.2 14.1 (12.0-16.0) g/dL ABG Oxyhemoglobin 82.7 91.9 % ABG Carboxyhemoglobin 0.7 1.1 (0.0-1.6) % ABG Methemoglobin 0.8 0.8 % Grupo Test Ok Ok O2 Delivery Device Non rebr mask Bipap Oxygen Flow Rate 15.0 L Sodium 138 L (140-148) mmol/L Potassium 3.5 L (3.6-5.2) mmol/L Chloride 102 (100-108) mmol/L Carbon Dioxide 24 (21-32) mmol/L Anion Gap 15.5 H (5.0-14.0) mmol/L BUN 17 D (7-18) mg/dL Creatinine 1.3 H (0.6-1.0) mg/dL Est Cr Clr Drug Dosing TNP mL/min Estimated GFR (MDRD) 40 L (>60) Glucose 129 H (74-106) mg/dL Lactic Acid (0.4-2.0) mmol/L Calcium 8.8 (8.5-10.1) mg/dL Magnesium (1.8-2.4) mg/dL Total Bilirubin (0.2-1.0) mg/dL AST (15-37) U/L ALT (12-78) U/L Alkaline Phosphatase (46-116) U/L Troponin I 3.950 H* (0.000-0.056) ng/mL C-Reactive Protein (0.0-0.3) mg/dL NT-Pro-B Natriuret Pep (5-125) pg/mL Total Protein (6.4-8.2) g/dL Albumin (3.4-5.0) g/dL Globulin (2.3-3.5) g/dL Albumin/Globulin Ratio (1.2-2.2) Procalcitonin ng/mL Urine Color (YELLOW) Urine Appearance (CLEAR) Urine pH (5.0-8.0) Ur Specific [place] (1.008-1.030) Urine Protein (NEGATIVE) mg/dL Urine Glucose (UA) (NEGATIVE) mg/dL Urine Ketones (NEGATIVE) mg/dL Urine Occult Blood (NEGATIVE) Urine Nitrite (NEGATIVE) Urine Bilirubin (NEGATIVE) Urine Urobilinogen (0.2-1.0) EU/dL Ur Leukocyte Esterase (NEGATIVE) Urine RBC (0-5) Urine WBC (0-5) Ur Epithelial Cells Amorphous Sediment Urine Bacteria Urine Mucus Urine Other SARS CoV-2 RNA Rapid SANJIV Med Orders - Current: Current Medications Acetaminophen (Acetaminophen 325 Mg Tab) 650 mg PO Q4H PRN PRN Reason: Pain (Mild 1-3)/fever Aspirin (Aspirin 81 Mg Tab.Chew) 324 mg PO ONETIME ONE Stop: 01/29/21 08:50 Levofloxacin/Dextrose 750 mg/ (Premix) 150 mls @ 100 mls/hr IV Q24H JOSE CRUZ Last Admin: 01/28/21 09:24 Dose: 100 mls/hr Documented by: Norepinephrine Bitartrate 4 mg (/ Dextrose/Water) 250 mls @ 7.5 mls/hr IV TITRATE JOSE CRUZ; Protocol Last Titration: 01/29/21 06:05 Dose: 4 mcg/min, 15 mls/hr Documented by: Heparin Sodium/Dextrose (Heparin 25,000 Units In D5w 500 Ml) 25,000 units in 500 mls @ 19.595 mls/hr IV TITRATE JOSE CRUZ; Protocol Last Titration: 01/29/21 00:00 Dose: 18 units/kg/hr, 29.393 mls/hr Documented by: Levalbuterol HCl (Levalbuterol Hcl 1.25 Mg/3 Ml Neb) 1.25 mg NEB Q2H PRN PRN Reason: Dyspnea Last Admin: 01/29/21 04:26 Dose: 1.25 mg Documented by: Levalbuterol HCl (Levalbuterol Hcl 1.25 Mg/3 Ml Neb) 1.25 mg NEB QIDRT JOSE CRUZ Last Admin: 01/29/21 07:00 Dose: 1.25 mg Documented by: Lorazepam (Lorazepam 2 Mg/Ml Sdv) 1 mg IVPUSH Q2H PRN PRN Reason: Anxiety Last Admin: 01/29/21 03:20 Dose: 1 mg Documented by: Lorazepam (Lorazepam 2 Mg/Ml Sdv) 0.5 mg IVPUSH Q2H PRN PRN Reason: Anxiety Magnesium Hydroxide (Magnesium Hydroxide 400 Mg/5 Ml Susp 30 Ml Cup) 30 ml PO Q12H PRN PRN Reason: Constipation Melatonin (Melatonin 3 Mg Tab) 9 mg PO BEDTIME [facility] Last Admin: 01/28/21 21:17 Dose: 9 mg Documented by: Methylprednisolone Sodium Succinate (Methylprednisolone Sodium Succinate 125 Mg/2 Ml Sdv) 62.5 mg IVPUSH Q8H [facility] Metoprolol Tartrate (Metoprolol Tartrate 25 Mg Tab) 25 mg PO Q12H [facility] Last Admin: 01/28/21 21:17 Dose: 25 mg Documented by: Morphine Sulfate (Morphine 2 Mg/Ml Syringe) 2 mg IVPUSH Q2H PRN PRN Reason: Dyspnea Last Admin: 01/29/21 07:38 Dose: 2 mg Documented by: Nystatin (Nystatin Topical Powder 15 Gm Bottle) 0 gm TOP TID [facility] Last Admin: 01/28/21 21:17 Dose: 1 applic Documented by: Ondansetron HCl (Ondansetron 4 Mg/2 Ml Sdv) 4 mg IV Q6H PRN PRN Reason: Nausea/Vomiting Ondansetron HCl (Ondansetron 4 Mg Tab.Dis) 4 mg PO Q6H PRN PRN Reason: Nausea able to take PO Pantoprazole Sodium (Pantoprazole 40 Mg Tab.Cr) 40 mg PO ACBREAKFAST [facility] Last Admin: 01/29/21 07:44 Dose: 40 mg Documented by: Polyethylene Glycol (Polyethylene Glycol 3350 Powder 17 Gm Packet) 17 gm PO DAILY PRN PRN Reason: Constipation Rosuvastatin Calcium (Rosuvastatin 10 Mg Tab) 20 mg PO DAILY [facility] Last Admin: 01/29/21 08:26 Dose: Not Given Documented by: Senna/Docusate Sodium (Docusate Sodium/Sennosides 50-8.6 Mg Tab) 1 tab PO BID PRN PRN Reason: Constipation Discontinued Medications Albuterol (Albuterol 0.083% 2.5 Mg/3 Ml Neb Soln) 2.5 mg NEB Q2H PRN PRN Reason: Wheezing Last Admin: 01/29/21 05:24 Dose: 2.5 mg Documented by: Albuterol/Ipratropium (Albuterol/Ipratropium 3.0-0.5 Mg/3 Ml Neb Soln) 3 ml NEB ONETIME ONE Stop: 01/28/21 09:18 Last Admin: 01/28/21 09:20 Dose: 3 ml Documented by: Albuterol/Ipratropium (Albuterol/Ipratropium 3.0-0.5 Mg/3 Ml Neb Soln) Confirm Administered Dose 3 ml .ROUTE .STK-MED ONE Stop: 01/28/21 09:18 Last Admin: 01/28/21 09:20 Dose: Not Given Documented by: Digoxin (Digoxin 500 Mcg/2 Ml Amp) 125 mcg IVPUSH ONETIME ONE Stop: 01/28/21 14:41 Last Admin: 01/28/21 16:04 Dose: 125 mcg Documented by: Furosemide (Furosemide 40 Mg/4 Ml Vial) 80 mg IVPUSH ONETIME ONE Stop: 01/28/21 11:49 Last Admin: 01/28/21 12:05 Dose: 80 mg Documented by: Furosemide (Furosemide 40 Mg/4 Ml Vial) 60 mg IVPUSH ONETIME ONE Stop: 01/28/21 18:12 Last Admin: 01/28/21 18:22 Dose: 60 mg Documented by: Furosemide (Furosemide 40 Mg/4 Ml Vial) 60 mg IVPUSH ONETIME ONE Stop: 01/29/21 02:55 Last Admin: 01/29/21 03:00 Dose: 60 mg Documented by: Furosemide (Furosemide 100 Mg/10 Ml Sdv) Confirm Administered Dose 100 mg .ROUTE .STK-MED ONE Stop: 01/29/21 02:57 Last Admin: 01/29/21 03:10 Dose: Not Given Documented by: Heparin Sodium (Porcine) (Heparin Sodium 5,000 Units/Ml Vial) 4,000 units IVPUSH .BOLUS ONE Stop: 01/28/21 17:01 Last Admin: 01/28/21 16:53 Dose: 4,000 units Documented by: Heparin Sodium (Porcine) (Heparin Sodium 5,000 Units/Ml Vial) Confirm Administered Dose 5,000 units .ROUTE .STK-MED ONE Stop: 01/28/21 23:58 Last Admin: 01/28/21 23:59 Dose: 1,000 units Documented by: Lactated Ringer's (Ringers, Lactated) 1,000 mls @ 999 mls/hr IV BOLUS ONE Stop: 01/28/21 11:19 Last Admin: 01/28/21 10:32 Dose: 999 mls/hr Documented by: Potassium Chloride 20 meq/Lidocaine HCl 2 ml/ Sodium Chloride 112 mls @ 50 mls/hr IV Q2H JOSE CRUZ Stop: 01/29/21 07:29 Last Admin: 01/29/21 05:41 Dose: 50 mls/hr Documented by: Lidocaine HCl (Xylocaine-Mpf 1%) Confirm Administered Dose 2 mls @ as directed .ROUTE .STK-MED ONE Stop: 01/29/21 05:28 Last Admin: 01/29/21 05:42 Dose: Not Given Documented by: Potassium Chloride (Kcl In Water 20 Meq/100 Ml) Confirm Administered Dose 100 mls @ as directed .ROUTE .STK-MED ONE Stop: 01/29/21 05:28 Last Admin: 01/29/21 05:42 Dose: Not Given Documented by: Lorazepam (Lorazepam 2 Mg/Ml Sdv) 0.5 mg IVPUSH Q4H PRN PRN Reason: Nausea/Vomiting Last Admin: 01/29/21 01:15 Dose: 0.5 mg Documented by: Methylprednisolone Sodium Succinate (Methylprednisolone Sodium Succinate 125 Mg/2 Ml Sdv) 125 mg IVPUSH ONETIME ONE Stop: 01/29/21 04:10 Last Admin: 01/29/21 04:30 Dose: 125 mg Documented by: Metoprolol Tartrate (Metoprolol Tartrate 25 Mg Tab) 25 mg PO ONETIME ONE Stop: 01/28/21 14:41 Last Admin: 01/28/21 15:59 Dose: 25 mg Documented by: Morphine Sulfate (Morphine 4 Mg/Ml Syringe) 4 mg IVPUSH ONETIME ONE Stop: 01/28/21 09:25 Last Admin: 01/28/21 09:32 Dose: 4 mg Documented by: - Exam Quality Assessment: Supplemental Oxygen Urinary Catheter Total Time: 0Days 9Hours General: Alert, Oriented, Cooperative, No Acute Distress Neck: Supple, JVD Lungs: Crackles (both lower lungs). No: Normal Respiratory Effort (tachypnea), Wheezing Cardiovascular: Regular Rate, Regular Rhythm GI/Abdominal Exam: Soft, No Distention Extremities: No Pedal Edema. No: Increased Warmth Skin: Warm, Dry Psy/Mental Status: Alert, Normal Affect - Patient Data Lab Results Last 24 hrs: Laboratory Results - last 24 hr 01/28/21 01/28/21 01/28/21 Range/Units 09:19 09:45 10:03 WBC 23.4 H (4.5-11.0) K/uL RBC 4.35 (3.30-5.50) M/uL Hgb 14.0 (12.0-15.0) g/dL Hct 41.5 (36.0-48.0) % MCV 95 (80-98) fL MCH 32 H (27-31) pg MCHC 34 (32-36) % Plt Count 317 (150-400) K/uL Neut % (Auto) 91.6 H (36-66) % Lymph % (Auto) 5.7 L (24-44) % [place] % (Auto) 2.1 (2-6) % Eos % (Auto) 0.3 L (2-4) % Baso % (Auto) 0.3 (0-1) % APTT (27.0-36.0) sec Puncture Site Lt radial ABG pH 7.304 L (7.350-7.450) ABG pCO2 36.0 (35.0-42.0) mmHg ABG pO2 155.0 H (75.0-100.0) mmHg ABG HCO3 17.4 L (22.0-26.0) mmol/L ABG Total CO2 15.6 L (21.0-25.0) mmol/L ABG O2 Saturation 98.9 H (95.0-98.0) % ABG O2 Content 19.3 (15.0-23.0) %vol ABG Base Excess -7.8 mm/L ABG Hemoglobin 14.4 (12.0-16.0) g/dL ABG Oxyhemoglobin 94.3 % ABG Carboxyhemoglobin 3.9 H (0.0-1.6) % ABG Methemoglobin 0.8 % Grupo Test Passed O2 Delivery Device Simple mask Oxygen Flow Rate L Sodium (140-148) mmol/L Potassium (3.6-5.2) mmol/L Chloride (100-108) mmol/L Carbon Dioxide (21-32) mmol/L Anion Gap (5.0-14.0) mmol/L BUN (7-18) mg/dL Creatinine (0.6-1.0) mg/dL Est Cr Clr Drug Dosing mL/min Estimated GFR (MDRD) (>60) Glucose (74-106) mg/dL Lactic Acid (0.4-2.0) mmol/L Calcium (8.5-10.1) mg/dL Magnesium (1.8-2.4) mg/dL Total Bilirubin (0.2-1.0) mg/dL AST (15-37) U/L ALT (12-78) U/L Alkaline Phosphatase (46-116) U/L Troponin I (0.000-0.056) ng/mL C-Reactive Protein (0.0-0.3) mg/dL NT-Pro-B Natriuret Pep (5-125) pg/mL Total Protein (6.4-8.2) g/dL Albumin (3.4-5.0) g/dL Globulin (2.3-3.5) g/dL Albumin/Globulin Ratio (1.2-2.2) Procalcitonin ng/mL Urine Color (YELLOW) Urine Appearance (CLEAR) Urine pH (5.0-8.0) Ur Specific [place] (1.008-1.030) Urine Protein (NEGATIVE) mg/dL Urine Glucose (UA) (NEGATIVE) mg/dL Urine Ketones (NEGATIVE) mg/dL Urine Occult Blood (NEGATIVE) Urine Nitrite (NEGATIVE) Urine Bilirubin (NEGATIVE) Urine Urobilinogen (0.2-1.0) EU/dL Ur Leukocyte Esterase (NEGATIVE) Urine RBC (0-5) Urine WBC (0-5) Ur Epithelial Cells Amorphous Sediment Urine Bacteria Urine Mucus Urine Other SARS CoV-2 RNA Rapid SANJIV Negative 01/28/21 01/28/21 01/28/21 Range/Units 10:03 10:03 10:03 WBC (4.5-11.0) K/uL RBC (3.30-5.50) M/uL Hgb (12.0-15.0) g/dL Hct (36.0-48.0) % MCV (80-98) fL MCH (27-31) pg MCHC (32-36) % Plt Count (150-400) K/uL Neut % (Auto) (36-66) % Lymph % (Auto) (24-44) % [place] % (Auto) (2-6) % Eos % (Auto) (2-4) % Baso % (Auto) (0-1) % APTT (27.0-36.0) sec Puncture Site ABG pH (7.350-7.450) ABG pCO2 (35.0-42.0) mmHg ABG pO2 (75.0-100.0) mmHg ABG HCO3 (22.0-26.0) mmol/L ABG Total CO2 (21.0-25.0) mmol/L ABG O2 Saturation (95.0-98.0) % ABG O2 Content (15.0-23.0) %vol ABG Base Excess mm/L ABG Hemoglobin (12.0-16.0) g/dL ABG Oxyhemoglobin % ABG Carboxyhemoglobin (0.0-1.6) % ABG Methemoglobin % Grupo Test O2 Delivery Device Oxygen Flow Rate L Sodium 139 L (140-148) mmol/L Potassium 4.0 (3.6-5.2) mmol/L Chloride 104 (100-108) mmol/L Carbon Dioxide 22 (21-32) mmol/L Anion Gap 17.0 H (5.0-14.0) mmol/L BUN 11 (7-18) mg/dL Creatinine 1.4 H (0.6-1.0) mg/dL Est Cr Clr Drug Dosing 32.20 mL/min Estimated GFR (MDRD) 37 L (>60) Glucose 239 H (74-106) mg/dL Lactic Acid 1.6 (0.4-2.0) mmol/L Calcium 8.2 L (8.5-10.1) mg/dL Magnesium (1.8-2.4) mg/dL Total Bilirubin 0.8 D (0.2-1.0) mg/dL AST 129 H D (15-37) U/L ALT 127 H (12-78) U/L Alkaline Phosphatase 110 (46-116) U/L Troponin I (0.000-0.056) ng/mL C-Reactive Protein 0.94 H (0.0-0.3) mg/dL NT-Pro-B Natriuret Pep (5-125) pg/mL Total Protein 6.5 (6.4-8.2) g/dL Albumin 3.0 L (3.4-5.0) g/dL Globulin 3.5 (2.3-3.5) g/dL Albumin/Globulin Ratio 0.9 L (1.2-2.2) Procalcitonin < 0.05 ng/mL Urine Color (YELLOW) Urine Appearance (CLEAR) Urine pH (5.0-8.0) Ur Specific [place] (1.008-1.030) Urine Protein (NEGATIVE) mg/dL Urine Glucose (UA) (NEGATIVE) mg/dL Urine Ketones (NEGATIVE) mg/dL Urine Occult Blood (NEGATIVE) Urine Nitrite (NEGATIVE) Urine Bilirubin (NEGATIVE) Urine Urobilinogen (0.2-1.0) EU/dL Ur Leukocyte Esterase (NEGATIVE) Urine RBC (0-5) Urine WBC (0-5) Ur Epithelial Cells Amorphous Sediment Urine Bacteria Urine Mucus Urine Other SARS CoV-2 RNA Rapid SANJIV 01/28/21 01/28/21 01/28/21 Range/Units 10:03 10:03 10:03 WBC (4.5-11.0) K/uL RBC (3.30-5.50) M/uL Hgb (12.0-15.0) g/dL Hct (36.0-48.0) % MCV (80-98) fL MCH (27-31) pg MCHC (32-36) % Plt Count (150-400) K/uL Neut % (Auto) (36-66) % Lymph % (Auto) (24-44) % [place] % (Auto) (2-6) % Eos % (Auto) (2-4) % Baso % (Auto) (0-1) % APTT 24.3 L (27.0-36.0) sec Puncture Site ABG pH (7.350-7.450) ABG pCO2 (35.0-42.0) mmHg ABG pO2 (75.0-100.0) mmHg ABG HCO3 (22.0-26.0) mmol/L ABG Total CO2 (21.0-25.0) mmol/L ABG O2 Saturation (95.0-98.0) % ABG O2 Content (15.0-23.0) %vol ABG Base Excess mm/L ABG Hemoglobin (12.0-16.0) g/dL ABG Oxyhemoglobin % ABG Carboxyhemoglobin (0.0-1.6) % ABG Methemoglobin % Grupo Test O2 Delivery Device Oxygen Flow Rate L Sodium (140-148) mmol/L Potassium (3.6-5.2) mmol/L Chloride (100-108) mmol/L Carbon Dioxide (21-32) mmol/L Anion Gap (5.0-14.0) mmol/L BUN (7-18) mg/dL Creatinine (0.6-1.0) mg/dL Est Cr Clr Drug Dosing mL/min Estimated GFR (MDRD) (>60) Glucose (74-106) mg/dL Lactic Acid (0.4-2.0) mmol/L Calcium (8.5-10.1) mg/dL Magnesium (1.8-2.4) mg/dL Total Bilirubin (0.2-1.0) mg/dL AST (15-37) U/L ALT (12-78) U/L Alkaline Phosphatase (46-116) U/L Troponin I 0.154 H* (0.000-0.056) ng/mL C-Reactive Protein (0.0-0.3) mg/dL NT-Pro-B Natriuret Pep 9103 H (5-125) pg/mL Total Protein (6.4-8.2) g/dL Albumin (3.4-5.0) g/dL Globulin (2.3-3.5) g/dL Albumin/Globulin Ratio (1.2-2.2) Procalcitonin ng/mL Urine Color (YELLOW) Urine Appearance (CLEAR) Urine pH (5.0-8.0) Ur Specific [place] (1.008-1.030) Urine Protein (NEGATIVE) mg/dL Urine Glucose (UA) (NEGATIVE) mg/dL Urine Ketones (NEGATIVE) mg/dL Urine Occult Blood (NEGATIVE) Urine Nitrite (NEGATIVE) Urine Bilirubin (NEGATIVE) Urine Urobilinogen (0.2-1.0) EU/dL Ur Leukocyte Esterase (NEGATIVE) Urine RBC (0-5) Urine WBC (0-5) Ur Epithelial Cells Amorphous Sediment Urine Bacteria Urine Mucus Urine Other SARS CoV-2 RNA Rapid SANJIV 01/28/21 01/28/21 01/28/21 Range/Units 12:00 12:58 13:00 WBC (4.5-11.0) K/uL RBC (3.30-5.50) M/uL Hgb (12.0-15.0) g/dL Hct (36.0-48.0) % MCV (80-98) fL MCH (27-31) pg MCHC (32-36) % Plt Count (150-400) K/uL Neut % (Auto) (36-66) % Lymph % (Auto) (24-44) % [place] % (Auto) (2-6) % Eos % (Auto) (2-4) % Baso % (Auto) (0-1) % APTT (27.0-36.0) sec Puncture Site Rt radial ABG pH 7.384 (7.350-7.450) ABG pCO2 35.3 (35.0-42.0) mmHg ABG pO2 86.2 (75.0-100.0) mmHg ABG HCO3 20.6 L (22.0-26.0) mmol/L ABG Total CO2 18.4 L (21.0-25.0) mmol/L ABG O2 Saturation 96.5 (95.0-98.0) % ABG O2 Content 17.7 (15.0-23.0) %vol ABG Base Excess -3.3 mm/L ABG Hemoglobin 13.4 (12.0-16.0) g/dL ABG Oxyhemoglobin 93.8 % ABG Carboxyhemoglobin 2.1 H (0.0-1.6) % ABG Methemoglobin 0.7 % Grupo Test Passed O2 Delivery Device Bipap Oxygen Flow Rate L Sodium (140-148) mmol/L Potassium (3.6-5.2) mmol/L Chloride (100-108) mmol/L Carbon Dioxide (21-32) mmol/L Anion Gap (5.0-14.0) mmol/L BUN (7-18) mg/dL Creatinine (0.6-1.0) mg/dL Est Cr Clr Drug Dosing mL/min Estimated GFR (MDRD) (>60) Glucose (74-106) mg/dL Lactic Acid (0.4-2.0) mmol/L Calcium (8.5-10.1) mg/dL Magnesium (1.8-2.4) mg/dL Total Bilirubin (0.2-1.0) mg/dL AST (15-37) U/L ALT (12-78) U/L Alkaline Phosphatase (46-116) U/L Troponin I 0.597 H* (0.000-0.056) ng/mL C-Reactive Protein (0.0-0.3) mg/dL NT-Pro-B Natriuret Pep (5-125) pg/mL Total Protein (6.4-8.2) g/dL Albumin (3.4-5.0) g/dL Globulin (2.3-3.5) g/dL Albumin/Globulin Ratio (1.2-2.2) Procalcitonin ng/mL Urine Color Yellow (YELLOW) Urine Appearance Slightly cloudy A (CLEAR) Urine pH 7.0 (5.0-8.0) Ur Specific [place] 1.025 (1.008-1.030) Urine Protein >=300 H (NEGATIVE) mg/dL Urine Glucose (UA) Negative (NEGATIVE) mg/dL Urine Ketones Negative (NEGATIVE) mg/dL Urine Occult Blood Trace-lysed H (NEGATIVE) Urine Nitrite Negative (NEGATIVE) Urine Bilirubin Negative (NEGATIVE) Urine Urobilinogen 0.2 (0.2-1.0) EU/dL Ur Leukocyte Esterase Negative (NEGATIVE) Urine RBC 0-5 (0-5) Urine WBC 0-5 (0-5) Ur Epithelial Cells Few Amorphous Sediment Few Urine Bacteria Few Urine Mucus Occasional Urine Other See note SARS CoV-2 RNA Rapid SANJIV 01/28/21 01/28/21 01/28/21 Range/Units 17:00 17:00 23:05 WBC (4.5-11.0) K/uL RBC (3.30-5.50) M/uL Hgb (12.0-15.0) g/dL Hct (36.0-48.0) % MCV (80-98) fL MCH (27-31) pg MCHC (32-36) % Plt Count (150-400) K/uL Neut % (Auto) (36-66) % Lymph % (Auto) (24-44) % [place] % (Auto) (2-6) % Eos % (Auto) (2-4) % Baso % (Auto) (0-1) % APTT 40.8 H (27.0-36.0) sec Puncture Site ABG pH (7.350-7.450) ABG pCO2 (35.0-42.0) mmHg ABG pO2 (75.0-100.0) mmHg ABG HCO3 (22.0-26.0) mmol/L ABG Total CO2 (21.0-25.0) mmol/L ABG O2 Saturation (95.0-98.0) % ABG O2 Content (15.0-23.0) %vol ABG Base Excess mm/L ABG Hemoglobin (12.0-16.0) g/dL ABG Oxyhemoglobin % ABG Carboxyhemoglobin (0.0-1.6) % ABG Methemoglobin % Grupo Test O2 Delivery Device Oxygen Flow Rate L Sodium (140-148) mmol/L Potassium (3.6-5.2) mmol/L Chloride (100-108) mmol/L Carbon Dioxide (21-32) mmol/L Anion Gap (5.0-14.0) mmol/L BUN (7-18) mg/dL Creatinine (0.6-1.0) mg/dL Est Cr Clr Drug Dosing mL/min Estimated GFR (MDRD) (>60) Glucose (74-106) mg/dL Lactic Acid (0.4-2.0) mmol/L Calcium (8.5-10.1) mg/dL Magnesium 1.9 (1.8-2.4) mg/dL Total Bilirubin (0.2-1.0) mg/dL AST (15-37) U/L ALT (12-78) U/L Alkaline Phosphatase (46-116) U/L Troponin I 1.812 H* (0.000-0.056) ng/mL C-Reactive Protein (0.0-0.3) mg/dL NT-Pro-B Natriuret Pep (5-125) pg/mL Total Protein (6.4-8.2) g/dL Albumin (3.4-5.0) g/dL Globulin (2.3-3.5) g/dL Albumin/Globulin Ratio (1.2-2.2) Procalcitonin ng/mL Urine Color (YELLOW) Urine Appearance (CLEAR) Urine pH (5.0-8.0) Ur Specific [place] (1.008-1.030) Urine Protein (NEGATIVE) mg/dL Urine Glucose (UA) (NEGATIVE) mg/dL Urine Ketones (NEGATIVE) mg/dL Urine Occult Blood (NEGATIVE) Urine Nitrite (NEGATIVE) Urine Bilirubin (NEGATIVE) Urine Urobilinogen (0.2-1.0) EU/dL Ur Leukocyte Esterase (NEGATIVE) Urine RBC (0-5) Urine WBC (0-5) Ur Epithelial Cells Amorphous Sediment Urine Bacteria Urine Mucus Urine Other SARS CoV-2 RNA Rapid SANJIV 01/28/21 01/29/21 01/29/21 Range/Units 23:05 03:00 03:00 WBC 15.2 H (4.5-11.0) K/uL RBC 4.30 (3.30-5.50) M/uL Hgb 13.6 (12.0-15.0) g/dL Hct 40.3 (36.0-48.0) % MCV 94 (80-98) fL MCH 32 H (27-31) pg MCHC 34 (32-36) % Plt Count 298 (150-400) K/uL Neut % (Auto) (36-66) % Lymph % (Auto) (24-44) % [place] % (Auto) (2-6) % Eos % (Auto) (2-4) % Baso % (Auto) (0-1) % APTT 56.5 H (27.0-36.0) sec Puncture Site ABG pH (7.350-7.450) ABG pCO2 (35.0-42.0) mmHg ABG pO2 (75.0-100.0) mmHg ABG HCO3 (22.0-26.0) mmol/L ABG Total CO2 (21.0-25.0) mmol/L ABG O2 Saturation (95.0-98.0) % ABG O2 Content (15.0-23.0) %vol ABG Base Excess mm/L ABG Hemoglobin (12.0-16.0) g/dL ABG Oxyhemoglobin % ABG Carboxyhemoglobin (0.0-1.6) % ABG Methemoglobin % Grupo Test O2 Delivery Device Oxygen Flow Rate L Sodium (140-148) mmol/L Potassium (3.6-5.2) mmol/L Chloride (100-108) mmol/L Carbon Dioxide (21-32) mmol/L Anion Gap (5.0-14.0) mmol/L BUN (7-18) mg/dL Creatinine (0.6-1.0) mg/dL Est Cr Clr Drug Dosing mL/min Estimated GFR (MDRD) (>60) Glucose (74-106) mg/dL Lactic Acid (0.4-2.0) mmol/L Calcium (8.5-10.1) mg/dL Magnesium (1.8-2.4) mg/dL Total Bilirubin (0.2-1.0) mg/dL AST (15-37) U/L ALT (12-78) U/L Alkaline Phosphatase (46-116) U/L Troponin I 3.921 H* (0.000-0.056) ng/mL C-Reactive Protein (0.0-0.3) mg/dL NT-Pro-B Natriuret Pep (5-125) pg/mL Total Protein (6.4-8.2) g/dL Albumin (3.4-5.0) g/dL Globulin (2.3-3.5) g/dL Albumin/Globulin Ratio (1.2-2.2) Procalcitonin ng/mL Urine Color (YELLOW) Urine Appearance (CLEAR) Urine pH (5.0-8.0) Ur Specific [place] (1.008-1.030) Urine Protein (NEGATIVE) mg/dL Urine Glucose (UA) (NEGATIVE) mg/dL Urine Ketones (NEGATIVE) mg/dL Urine Occult Blood (NEGATIVE) Urine Nitrite (NEGATIVE) Urine Bilirubin (NEGATIVE) Urine Urobilinogen (0.2-1.0) EU/dL Ur Leukocyte Esterase (NEGATIVE) Urine RBC (0-5) Urine WBC (0-5) Ur Epithelial Cells Amorphous Sediment Urine Bacteria Urine Mucus Urine Other SARS CoV-2 RNA Rapid SANJIV 01/29/21 01/29/21 01/29/21 Range/Units 03:00 04:05 05:15 WBC (4.5-11.0) K/uL RBC (3.30-5.50) M/uL Hgb (12.0-15.0) g/dL Hct (36.0-48.0) % MCV (80-98) fL MCH (27-31) pg MCHC (32-36) % Plt Count (150-400) K/uL Neut % (Auto) (36-66) % Lymph % (Auto) (24-44) % [place] % (Auto) (2-6) % Eos % (Auto) (2-4) % Baso % (Auto) (0-1) % APTT (27.0-36.0) sec Puncture Site R radial R radial ABG pH 7.098 L* 7.262 L (7.350-7.450) ABG pCO2 80.8 H* 52.2 H (35.0-42.0) mmHg ABG pO2 70.2 L 82.4 (75.0-100.0) mmHg ABG HCO3 23.9 22.8 (22.0-26.0) mmol/L ABG Total CO2 22.7 20.7 L (21.0-25.0) mmol/L ABG O2 Saturation 84.0 L 93.7 L (95.0-98.0) % ABG O2 Content 17.7 18.3 (15.0-23.0) %vol ABG Base Excess -8.3 -4.4 mm/L ABG Hemoglobin 15.2 14.1 (12.0-16.0) g/dL ABG Oxyhemoglobin 82.7 91.9 % ABG Carboxyhemoglobin 0.7 1.1 (0.0-1.6) % ABG Methemoglobin 0.8 0.8 % Grupo Test [facility] O2 Delivery Device Non rebr mask Bipap Oxygen Flow Rate 15.0 L Sodium 138 L (140-148) mmol/L Potassium 3.5 L (3.6-5.2) mmol/L Chloride 102 (100-108) mmol/L Carbon Dioxide 24 (21-32) mmol/L Anion Gap 15.5 H (5.0-14.0) mmol/L BUN 17 D (7-18) mg/dL Creatinine 1.3 H (0.6-1.0) mg/dL Est Cr Clr Drug Dosing TNP mL/min Estimated GFR (MDRD) 40 L (>60) Glucose 129 H (74-106) mg/dL Lactic Acid (0.4-2.0) mmol/L Calcium 8.8 (8.5-10.1) mg/dL Magnesium (1.8-2.4) mg/dL Total Bilirubin (0.2-1.0) mg/dL AST (15-37) U/L ALT (12-78) U/L Alkaline Phosphatase (46-116) U/L Troponin I 3.950 H* (0.000-0.056) ng/mL C-Reactive Protein (0.0-0.3) mg/dL NT-Pro-B Natriuret Pep (5-125) pg/mL Total Protein (6.4-8.2) g/dL Albumin (3.4-5.0) g/dL Globulin (2.3-3.5) g/dL Albumin/Globulin Ratio (1.2-2.2) Procalcitonin ng/mL Urine Color (YELLOW) Urine Appearance (CLEAR) Urine pH (5.0-8.0) Ur Specific [place] (1.008-1.030) Urine Protein (NEGATIVE) mg/dL Urine Glucose (UA) (NEGATIVE) mg/dL Urine Ketones (NEGATIVE) mg/dL Urine Occult Blood (NEGATIVE) Urine Nitrite (NEGATIVE) Urine Bilirubin (NEGATIVE) Urine Urobilinogen (0.2-1.0) EU/dL Ur Leukocyte Esterase (NEGATIVE) Urine RBC (0-5) Urine WBC (0-5) Ur Epithelial Cells Amorphous Sediment Urine Bacteria Urine Mucus Urine Other SARS CoV-2 RNA Rapid SANJIV Result Diagrams: 01/29/21 03:00 01/29/21 03:00 Sepsis Event Note - Evaluation Sepsis Screening Result: Severe Sepsis Risk - Focused Exam Vital Signs: Vital Signs Temp Pulse Pulse Resp BP BP Pulse Ox 01/29/21 08:00 36.2 C 70 30 H 85/48 L 97 01/29/21 07:00 72 32 H 91/48 L 96 01/29/21 06:30 68 31 H 104/58 L 98 01/29/21 06:00 36.1 C 68 32 H 86/43 L 98 01/29/21 05:00 87 35 H 82/62 L 94 L 01/29/21 04:36 102 H 39 H 116/32 L 94 L 01/29/21 04:04 104 H 38 H 130/82 89 L 01/29/21 03:45 103 H 38 H 145/82 H 87 L 01/29/21 03:00 79 41 H 91 L 01/29/21 02:00 73 26 H 110/50 L 93 L 01/29/21 01:00 98 28 H 100/73 92 L 01/29/21 00:00 99 26 H 96/65 95 01/28/21 23:00 36.1 C 108 H 27 H 96/61 94 L 01/28/21 22:29 97/52 L 01/28/21 22:00 98 27 H 84/56 L 95 01/28/21 21:17 108 H 104/58 L 01/28/21 21:00 119 H 27 H 104/58 L 95 - Problem List & Annotations (1) Congestive heart failure SNOMED Code(s): 16661488 Code(s): I50.9 - HEART FAILURE, UNSPECIFIED Status: Acute Current Visit: Yes Qualifiers: Heart failure type: unspecified Heart failure chronicity: acute Qualified Code(s): I50.9 - Heart failure, unspecified (2) Acute respiratory failure with hypoxia SNOMED Code(s): 86433923, 112691120 Code(s): J96.01 - ACUTE RESPIRATORY FAILURE WITH HYPOXIA Status: Acute Current Visit: Yes (3) Atrial fibrillation with rapid ventricular response SNOMED Code(s): 922070488806799 Code(s): I48.91 - UNSPECIFIED ATRIAL FIBRILLATION Status: Acute Current Visit: Yes (4) NSTEMI (non-ST elevated myocardial infarction) SNOMED Code(s): 70397849 Code(s): I21.4 - NON-ST ELEVATION (NSTEMI) MYOCARDIAL INFARCTION Status: Acute Current Visit: Yes (5) Mita rash of groin SNOMED Code(s): 894285570, 031030099 Code(s): B37.89 - OTHER SITES OF CANDIDIASIS Status: Resolved Priority: Medium Current Visit: No (6) CKD (chronic kidney disease), stage III SNOMED Code(s): 892472658 Code(s): N18.3 - CHRONIC KIDNEY DISEASE, STAGE 3 (MODERATE) * DO NOT USE * Status: Chronic Current Visit: No Qualifiers: Chronic kidney disease stage 3 subtype: stage 3b (GFR 30-44) Qualified Code(s): N18.32 - Chronic kidney disease, stage 3b - Problem List Review Problem List Initiated/Reviewed/Updated: Yes - My Orders Last 24 Hours: My Active Orders 01/28/21 11:44 RT Aerosol Therapy [RC] ASDIRECTED 01/28/21 14:44 Resuscitation Status Routine 01/28/21 16:23 Acetaminophen [TylenoL] 650 mg PO Q4H PRN Docusate Sodium/Sennosides [Senna Plus] 1 tab PO BID PRN Magnesium Hydroxide [Milk of Magnesia] 30 ml PO Q12H PRN Ondansetron [Zofran ODT] 4 mg PO Q6H PRN Ondansetron [Zofran] 4 mg IV Q6H PRN polyethylene glycoL 3350 [MiraLAX] 17 gm PO DAILY PRN 01/28/21 16:23 Patient Status [ADT] Routine Cardiac Monitoring [RC] Q6H Intake and Output [RC] QSHIFT Notify Provider Vital Signs [RC] ASDIRECTED Oxygen Therapy [RC] PRN Up With Assistance [RC] ASDIRECTED VTE/DVT Education [RC] Per Unit Routine Vital Signs [RC] Q1H 01/28/21 Dinner 2 Gram Sodium Diet [DIET] Heparin Sodium/D5W [Heparin 25,000 Units in D5W 500 ML] 25,000 units in 500 ml IV TITRATE 01/28/21 21:00 Melatonin 9 mg PO BEDTIME Nystatin [Nystop] 0 gm TOP TID 01/28/21 22:00 Metoprolol Tartrate [Lopressor] 25 mg PO Q12H 01/29/21 02:53 Morphine 2 mg IVPUSH Q2H PRN 01/29/21 03:55 LORazepam [Ativan] 1 mg IVPUSH Q2H PRN 01/29/21 04:03 levalbuterol HCL [Xopenex] 1.25 mg NEB Q2H PRN 01/29/21 04:04 RT Aerosol Therapy [RC] ASDIRECTED 01/29/21 04:10 CXR [Chest 1V Frontal] [CR] Routine 01/29/21 04:11 RT Aerosol Therapy [RC] ASDIRECTED 01/29/21 05:28 LORazepam [Ativan] 0.5 mg IVPUSH Q2H PRN 01/29/21 07:00 levalbuterol HCL [Xopenex] 1.25 mg NEB QIDRT 01/29/21 07:30 Pantoprazole [ProTONIX] 40 mg PO ACBREAKFAST 01/29/21 08:49 Aspirin 324 mg PO ONETIME ONE 01/29/21 09:00 PTT,PARTIAL THROMBOPLSTIN TIME [COAG] Q6H Rosuvastatin [Crestor] 20 mg PO DAILY 01/29/21 10:30 Pastor Catheter Insertion [Insert Urinary Catheter] [OM.PC] Q24H 01/29/21 12:00 methylPREDNISolone Sod Succ [Solu-MEDROL] 62.5 mg IVPUSH Q8H 01/29/21 15:00 PTT,PARTIAL THROMBOPLSTIN TIME [COAG] Q6H 01/29/21 21:00 PTT,PARTIAL THROMBOPLSTIN TIME [COAG] Q6H 01/30/21 03:00 PTT,PARTIAL THROMBOPLSTIN TIME [COAG] Q6H 01/30/21 07:00 Echo Comp wo Cont [US] Routine - Plan Plan:: ASSESSMENT AND PLAN - Congestive heart failure-complicated by significant acute respiratory failure with hypoxia. Last echo was 6 years ago and did have a normal ejection fra ction. Concern for stress cardiomyopathy based on bedside ultrasound. Respiratory status initially improved but then worsened again. Volume status seems appropriate this morning though she is hypotensive and requiring vasopressor support. -Hold on diuresis -Norepinephrine to maintain blood pressure for diuresis -Formal echocardiogram when available -Rate control of atrial fibrillation as below Non-ST elevation myocardial infarction-troponin peaked at 3.95 this morning. Repeat EKG today shows T wave inversions in 1, 2 as well as the lateral leads. No chest pain. Trop peak at 3.95. -Heparin 48 hours -Metoprolol for improved rate control Acute exacerbation of COPD with bronchospasm-acute onset this morning with wheezing, respiratory failure with both hypoxia and hypercapnia. Responding well to nebulizers, steroids and noninvasive ventilation. -Steroids every 8 hours -Scheduled and as needed nebulizers -Continue noninvasive ventilation, wean as able -Continue empiric antibiotics Atrial fibrillation with rapid ventricular response-unclear if this provoked the heart failure or was provoked by CHF. Now back in sinus rhythm. -Oral metoprolol -Cardiac monitoring Stage III chronic kidney disease-stable. Tobacco dependence-encourage cessation Maintenance issues - -DVT prophylaxis-Heparin -GI prophylaxis-PPI -[id number] -Pastor catheter-placed for strict intake and output monitoring in a critical patient CODE STATUS -no CPR but intubation okay Disposition -I anticipate discharge home after the hospital stay Primary care physician - Soheila Mims M.D.
[2021-01-29] MEDS ORDERED: Aspirin 81 MG Tab.Chew PO ONE (09:15)
[2021-01-29] MEDS: Nystatin Topical Powder 15 GM Bottle TOP SCH ×3 (09:18→20:31)
[2021-01-29] MEDS: Levofloxacin/Dextrose 5%-Water 750 MG in Premix Bag 1 BAG IV SCH (09:20)
[2021-01-29] MEDS: Metoprolol Tartrate 25 MG Tab PO SCH ×2 (09:54→22:10)
--- NOTE | 2021-01-29 10:05 | CRLCR ---
For Patients: As a result of the Century Cures Act, medical imaging exams and procedure reports are released immediately into your electronic medical record. You may view this report before your referring provider. If you have questions, please contact your health care provider. INDICATION: Hypoxia. COMPARISON: 28 January 2021. IMPRESSION: Increased pulmonary vascular congestion and edema versus comparison particularly in the right lung. Small right pleural effusion blunts the costophrenic angle. Heart size is mildly enlarged for AP projection. Peribronchial interstitial cuffing. Dictated by Jagdeep Carson MD @ 01/29/2021 10:04:09 AM (Electronically Signed)
[2021-01-29] MEDS ORDERED: Sodium Chloride 0.9% 500 ML IV ONE (10:45)
[2021-01-29] MEDS: Heparin Sodium/D5W 25,000 UNITS/500 ML BAG IV SCH (11:23)
[2021-01-29] MEDS: methylPREDNISolone Sodium Succinate 125 MG/2 ML SDV IVPUSH SCH ×2 (11:55→19:26)
[2021-01-29] MEDS: Norepinephrine 4 MG in Dextrose 5% in Water 246 ML IV SCH ×2 (12:11)
[2021-01-29] MEDS ORDERED: Vasopressin 100 UNITS in Dextrose 5% in Water 250 ML IV SCH ×4 (12:15→15:15)
[2021-01-29] MEDS: Nystatin Crm 15 GM Tube TOP SCH ×2 (14:15→20:31)
[2021-01-29] MEDS: Norepinephrine 8 MG in Dextrose 5% in Water 242 ML IV SCH ×2 (17:48)
[2021-01-29] MEDS: Melatonin 3 MG Tab PO SCH (20:31)
[2021-01-30] MEDS: Morphine 2 MG/ML SYRINGE IVPUSH PRN ×9 (00:17→23:40)
[2021-01-30] MEDS: methylPREDNISolone Sodium Succinate 125 MG/2 ML SDV IVPUSH SCH ×3 (04:09→19:31)
[2021-01-30] MEDS ORDERED: Sodium Chloride 0.9% 500 ML IV ONE (04:21)
[2021-01-30] MEDS: Norepinephrine 8 MG in Dextrose 5% in Water 242 ML IV SCH ×4 (04:55→15:46)
[2021-01-30] MEDS: Levalbuterol HCl 1.25 MG/3 ML Neb NEB PRN ×2 (05:09→16:25)
[2021-01-30] MEDS: Heparin Sodium/D5W 25,000 UNITS/500 ML BAG IV SCH (07:01)
[2021-01-30] MEDS: LORazepam 2 MG/ML SDV IVPUSH PRN ×5 (07:01→23:04)
[2021-01-30] MEDS: Levalbuterol HCl 1.25 MG/3 ML Neb NEB SCH ×4 (07:05→20:14)
[2021-01-30] MEDS: Pantoprazole 40 MG Tab.CR PO SCH (08:00)
[2021-01-30] MEDS: Nystatin Topical Powder 15 GM Bottle TOP SCH ×3 (08:25→23:08)
[2021-01-30] MEDS ORDERED: Potassium Chloride 20 MEQ Tab.ER PO ONE (08:30)
[2021-01-30] MEDS: Rosuvastatin 10 MG Tab PO SCH (08:32)
[2021-01-30] MEDS: Nystatin Crm 15 GM Tube TOP SCH ×3 (08:36→23:09)
[2021-01-30] MEDS ORDERED: Vasopressin 40 UNITS in Dextrose 5% in Water 100 ML IV SCH ×2 (09:00)
--- NOTE | 2021-01-30 09:00 | PCM.PN ---
- General Info Date of Service: 01/30/21 Subjective Update: No acute events overnight. She has remained in a sinus rhythm. She does continue to require a combination of norepinephrine and vasopressin to support her blood pressure. She does not report any chest pain. She reports intermittent episodes of dyspnea. No nausea. Appetite is not great but she has been eating a little bit. She feels tired and feels weak. Troponin level continues to trend down and is down to just above 1 today. Kidney function slightly better. Potassium is slightly low. Echo pending. - Patient Data Vitals - Most Recent: Last Vital Signs Temp 36.1 C 01/30/21 05:00 Pulse 88 01/30/21 07:06 Resp 25 H 01/30/21 06:00 BP 123/58 L 01/30/21 06:00 Pulse Ox 92 L 01/30/21 07:06 Weight - Most Recent: 92.669 kg I&O - Last 24 Hours: Intake & Output 01/29/21 01/30/21 01/30/21 22:59 06:59 14:59 Intake Total 1014 1839 Output Total 340 225 Balance 674 1614 Lab Results Last 24 Hours: Laboratory Results - last 24 hr 01/29/21 01/29/21 01/29/21 Range/Units 08:56 12:56 12:56 WBC (4.5-11.0) K/uL RBC (3.30-5.50) M/uL Hgb (12.0-15.0) g/dL Hct (36.0-48.0) % MCV (80-98) fL MCH (27-31) pg MCHC (32-36) % Plt Count (150-400) K/uL APTT 66.7 H (27.0-36.0) sec Puncture Site Rt brachial ABG pH 7.429 (7.350-7.450) ABG pCO2 31.5 L (35.0-42.0) mmHg ABG pO2 71.8 L (75.0-100.0) mmHg ABG HCO3 20.5 L (22.0-26.0) mmol/L ABG Total CO2 18.1 L (21.0-25.0) mmol/L ABG O2 Saturation 94.2 L (95.0-98.0) % ABG O2 Content 17.5 (15.0-23.0) %vol ABG Base Excess -2.4 mm/L ABG Hemoglobin 13.6 (12.0-16.0) g/dL ABG Oxyhemoglobin 91.8 % ABG Carboxyhemoglobin 1.7 H (0.0-1.6) % ABG Methemoglobin 0.8 % Grupo Test Not performed O2 Delivery Device Nasal cannula Oxygen Flow Rate 3.0 L Sodium (140-148) mmol/L Potassium (3.6-5.2) mmol/L Chloride (100-108) mmol/L Carbon Dioxide (21-32) mmol/L Anion Gap (5.0-14.0) mmol/L BUN (7-18) mg/dL Creatinine (0.6-1.0) mg/dL Est Cr Clr Drug Dosing mL/min Estimated GFR (MDRD) (>60) Glucose (74-106) mg/dL Lactic Acid 1.1 (0.4-2.0) mmol/L Calcium (8.5-10.1) mg/dL Total Bilirubin (0.2-1.0) mg/dL AST (15-37) U/L ALT (12-78) U/L Alkaline Phosphatase (46-116) U/L Troponin I (0.000-0.056) ng/mL Total Protein (6.4-8.2) g/dL Albumin (3.4-5.0) g/dL Globulin (2.3-3.5) g/dL Albumin/Globulin Ratio (1.2-2.2) 01/29/21 01/29/21 01/29/21 Range/Units 13:12 15:43 21:08 WBC (4.5-11.0) K/uL RBC (3.30-5.50) M/uL Hgb (12.0-15.0) g/dL Hct (36.0-48.0) % MCV (80-98) fL MCH (27-31) pg MCHC (32-36) % Plt Count (150-400) K/uL APTT 86.7 H 71.0 H (27.0-36.0) sec Puncture Site ABG pH (7.350-7.450) ABG pCO2 (35.0-42.0) mmHg ABG pO2 (75.0-100.0) mmHg ABG HCO3 (22.0-26.0) mmol/L ABG Total CO2 (21.0-25.0) mmol/L ABG O2 Saturation (95.0-98.0) % ABG O2 Content (15.0-23.0) %vol ABG Base Excess mm/L ABG Hemoglobin (12.0-16.0) g/dL ABG Oxyhemoglobin % ABG Carboxyhemoglobin (0.0-1.6) % ABG Methemoglobin % Grupo Test O2 Delivery Device Oxygen Flow Rate L Sodium (140-148) mmol/L Potassium (3.6-5.2) mmol/L Chloride (100-108) mmol/L Carbon Dioxide (21-32) mmol/L Anion Gap (5.0-14.0) mmol/L BUN (7-18) mg/dL Creatinine (0.6-1.0) mg/dL Est Cr Clr Drug Dosing mL/min Estimated GFR (MDRD) (>60) Glucose (74-106) mg/dL Lactic Acid (0.4-2.0) mmol/L Calcium (8.5-10.1) mg/dL Total Bilirubin (0.2-1.0) mg/dL AST (15-37) U/L ALT (12-78) U/L Alkaline Phosphatase (46-116) U/L Troponin I 2.360 H* (0.000-0.056) ng/mL Total Protein (6.4-8.2) g/dL Albumin (3.4-5.0) g/dL Globulin (2.3-3.5) g/dL Albumin/Globulin Ratio (1.2-2.2) 01/30/21 01/30/21 01/30/21 Range/Units 02:53 05:11 05:50 WBC 17.1 H (4.5-11.0) K/uL RBC 4.08 (3.30-5.50) M/uL Hgb 13.1 (12.0-15.0) g/dL Hct 37.4 (36.0-48.0) % MCV 92 (80-98) fL MCH 32 H (27-31) pg MCHC 35 (32-36) % Plt Count 343 (150-400) K/uL APTT 51.7 H (27.0-36.0) sec Puncture Site Rt brachial ABG pH 7.408 (7.350-7.450) ABG pCO2 33.1 L (35.0-42.0) mmHg ABG pO2 114.0 H (75.0-100.0) mmHg ABG HCO3 20.5 L (22.0-26.0) mmol/L ABG Total CO2 18.2 L (21.0-25.0) mmol/L ABG O2 Saturation 98.5 H (95.0-98.0) % ABG O2 Content 18.2 (15.0-23.0) %vol ABG Base Excess -2.9 mm/L ABG Hemoglobin 13.4 (12.0-16.0) g/dL ABG Oxyhemoglobin 95.9 % ABG Carboxyhemoglobin 1.9 H (0.0-1.6) % ABG Methemoglobin 0.7 % Grupo Test Not performed O2 Delivery Device Bipap Oxygen Flow Rate L Sodium (140-148) mmol/L Potassium (3.6-5.2) mmol/L Chloride (100-108) mmol/L Carbon Dioxide (21-32) mmol/L Anion Gap (5.0-14.0) mmol/L BUN (7-18) mg/dL Creatinine (0.6-1.0) mg/dL Est Cr Clr Drug Dosing mL/min Estimated GFR (MDRD) (>60) Glucose (74-106) mg/dL Lactic Acid (0.4-2.0) mmol/L Calcium (8.5-10.1) mg/dL Total Bilirubin (0.2-1.0) mg/dL AST (15-37) U/L ALT (12-78) U/L Alkaline Phosphatase (46-116) U/L Troponin I (0.000-0.056) ng/mL Total Protein (6.4-8.2) g/dL Albumin (3.4-5.0) g/dL Globulin (2.3-3.5) g/dL Albumin/Globulin Ratio (1.2-2.2) 01/30/21 01/30/21 Range/Units 05:50 05:50 WBC (4.5-11.0) K/uL RBC (3.30-5.50) M/uL Hgb (12.0-15.0) g/dL Hct (36.0-48.0) % MCV (80-98) fL MCH (27-31) pg MCHC (32-36) % Plt Count (150-400) K/uL APTT (27.0-36.0) sec Puncture Site ABG pH (7.350-7.450) ABG pCO2 (35.0-42.0) mmHg ABG pO2 (75.0-100.0) mmHg ABG HCO3 (22.0-26.0) mmol/L ABG Total CO2 (21.0-25.0) mmol/L ABG O2 Saturation (95.0-98.0) % ABG O2 Content (15.0-23.0) %vol ABG Base Excess mm/L ABG Hemoglobin (12.0-16.0) g/dL ABG Oxyhemoglobin % ABG Carboxyhemoglobin (0.0-1.6) % ABG Methemoglobin % Grupo Test O2 Delivery Device Oxygen Flow Rate L Sodium 133 L (140-148) mmol/L Potassium 3.4 L (3.6-5.2) mmol/L Chloride 99 L (100-108) mmol/L Carbon Dioxide 21 (21-32) mmol/L Anion Gap 16.4 H (5.0-14.0) mmol/L BUN 24 H (7-18) mg/dL Creatinine 1.2 H (0.6-1.0) mg/dL Est Cr Clr Drug Dosing 37.51 mL/min Estimated GFR (MDRD) 44 L (>60) Glucose 189 H (74-106) mg/dL Lactic Acid 1.2 (0.4-2.0) mmol/L Calcium 8.5 (8.5-10.1) mg/dL Total Bilirubin 0.7 (0.2-1.0) mg/dL AST 35 (15-37) U/L ALT 76 (12-78) U/L Alkaline Phosphatase 77 (46-116) U/L Troponin I 1.130 H* (0.000-0.056) ng/mL Total Protein 6.1 L (6.4-8.2) g/dL Albumin 2.7 L (3.4-5.0) g/dL Globulin 3.4 (2.3-3.5) g/dL Albumin/Globulin Ratio 0.8 L (1.2-2.2) Arturo Results Last 24 Hours: Microbiology 01/28/21 09:37 Aerobic Blood Culture - Preliminary Blood - Arm, Left NO GROWTH AFTER 1 DAY Anaerobic Blood Culture - Preliminary NO GROWTH AFTER 1 DAY 01/28/21 09:52 Aerobic Blood Culture - Preliminary Blood - Arm, Left NO GROWTH AFTER 1 DAY Anaerobic Blood Culture - Preliminary NO GROWTH AFTER 1 DAY Med Orders - Current: Current Medications Acetaminophen (Acetaminophen 325 Mg Tab) 650 mg PO Q4H PRN PRN Reason: Pain (Mild 1-3)/fever Heparin Sodium/Dextrose (Heparin 25,000 Units In D5w 500 Ml) 25,000 units in 500 mls @ 19.595 mls/hr IV TITRATE [facility]; Protocol Last Admin: 01/30/21 07:01 Dose: 14 units/kg/hr, 22.861 mls/hr Documented by: Vasopressin 100 units/ (Dextrose/Water) 255 mls @ 1.53 mls/hr IV TITRATE [facility]; Protocol Stop: 01/30/21 08:55 Last Titration: 01/30/21 05:20 Dose: 0.07 units/min, 10.71 mls/hr Documented by: Norepinephrine Bitartrate 8 mg (/ Dextrose/Water) 250 mls @ 3.75 mls/hr IV TITRATE [facility]; Protocol Last Admin: 01/30/21 04:55 Dose: 12 mcg/min, 22.5 mls/hr Documented by: Levofloxacin/Dextrose 750 mg/ (Premix) 150 mls @ 100 mls/hr IV Q48H [facility] Vasopressin 40 units/ Dextrose (/Water) 102 mls @ 1.53 mls/hr IV TITRATE [facility]; Protocol Levalbuterol HCl (Levalbuterol Hcl 1.25 Mg/3 Ml Neb) 1.25 mg NEB Q2H PRN PRN Reason: Dyspnea Last Admin: 01/30/21 05:09 Dose: 1.25 mg Documented by: Levalbuterol HCl (Levalbuterol Hcl 1.25 Mg/3 Ml Neb) 1.25 mg NEB QIDRT [facility] Last Admin: 01/30/21 07:05 Dose: 1.25 mg Documented by: Lorazepam (Lorazepam 2 Mg/Ml Sdv) 1 mg IVPUSH Q2H PRN PRN Reason: Anxiety Last Admin: 01/29/21 15:21 Dose: 1 mg Documented by: Lorazepam (Lorazepam 2 Mg/Ml Sdv) 0.5 mg IVPUSH Q2H PRN PRN Reason: Anxiety Last Admin: 01/30/21 07:01 Dose: 0.5 mg Documented by: Magnesium Hydroxide (Magnesium Hydroxide 400 Mg/5 Ml Susp 30 Ml Cup) 30 ml PO Q12H PRN PRN Reason: Constipation Melatonin (Melatonin 3 Mg Tab) 9 mg PO BEDTIME [facility] Last Admin: 01/29/21 20:31 Dose: 9 mg Documented by: Methylprednisolone Sodium Succinate (Methylprednisolone Sodium Succinate 125 Mg/2 Ml Sdv) 62.5 mg IVPUSH Q8H [facility] Last Admin: 01/30/21 04:09 Dose: 62.5 mg Documented by: Metoprolol Tartrate (Metoprolol Tartrate 25 Mg Tab) 25 mg PO Q12H [facility] Last Admin: 01/29/21 22:10 Dose: 25 mg Documented by: Morphine Sulfate (Morphine 2 Mg/Ml Syringe) 2 mg IVPUSH Q2H PRN PRN Reason: Dyspnea Last Admin: 01/30/21 06:05 Dose: 2 mg Documented by: Nystatin (Nystatin Crm 15 Gm Tube) 1 gm TOP TID [facility] Last Admin: 01/30/21 08:36 Dose: 1 applic Documented by: Nystatin (Nystatin Topical Powder 15 Gm Bottle) 1 gm TOP TID [facility] Last Admin: 01/30/21 08:25 Dose: 1 applicful Documented by: Ondansetron HCl (Ondansetron 4 Mg/2 Ml Sdv) 4 mg IV Q6H PRN PRN Reason: Nausea/Vomiting Ondansetron HCl (Ondansetron 4 Mg Tab.Dis) 4 mg PO Q6H PRN PRN Reason: Nausea able to take PO Pantoprazole Sodium (Pantoprazole 40 Mg Tab.Cr) 40 mg PO ACBREAKFAST [facility] Last Admin: 01/30/21 08:00 Dose: 40 mg Documented by: Polyethylene Glycol (Polyethylene Glycol 3350 Powder 17 Gm Packet) 17 gm PO DAILY PRN PRN Reason: Constipation Rosuvastatin Calcium (Rosuvastatin 10 Mg Tab) 20 mg PO DAILY [facility] Last Admin: 01/30/21 08:32 Dose: 20 mg Documented by: Senna/Docusate Sodium (Docusate Sodium/Sennosides 50-8.6 Mg Tab) 1 tab PO BID PRN PRN Reason: Constipation Discontinued Medications Albuterol (Albuterol 0.083% 2.5 Mg/3 Ml Neb Soln) 2.5 mg NEB Q2H PRN PRN Reason: Wheezing Last Admin: 01/29/21 05:24 Dose: 2.5 mg Documented by: Albuterol/Ipratropium (Albuterol/Ipratropium 3.0-0.5 Mg/3 Ml Neb Soln) 3 ml NEB ONETIME ONE Stop: 01/28/21 09:18 Last Admin: 01/28/21 09:20 Dose: 3 ml Documented by: Albuterol/Ipratropium (Albuterol/Ipratropium 3.0-0.5 Mg/3 Ml Neb Soln) Confirm Administered Dose 3 ml .ROUTE .STK-MED ONE Stop: 01/28/21 09:18 Last Admin: 01/28/21 09:20 Dose: Not Given Documented by: Aspirin (Aspirin 81 Mg Tab.Chew) 324 mg PO ONETIME ONE Stop: 01/29/21 09:16 Last Admin: 01/29/21 09:19 Dose: 324 mg Documented by: Digoxin (Digoxin 500 Mcg/2 Ml Amp) 125 mcg IVPUSH ONETIME ONE Stop: 01/28/21 14:41 Last Admin: 01/28/21 16:04 Dose: 125 mcg Documented by: Furosemide (Furosemide 40 Mg/4 Ml Vial) 80 mg IVPUSH ONETIME ONE Stop: 01/28/21 11:49 Last Admin: 01/28/21 12:05 Dose: 80 mg Documented by: Furosemide (Furosemide 40 Mg/4 Ml Vial) 60 mg IVPUSH ONETIME ONE Stop: 01/28/21 18:12 Last Admin: 01/28/21 18:22 Dose: 60 mg Documented by: Furosemide (Furosemide 40 Mg/4 Ml Vial) 60 mg IVPUSH ONETIME ONE Stop: 01/29/21 02:55 Last Admin: 01/29/21 03:00 Dose: 60 mg Documented by: Furosemide (Furosemide 100 Mg/10 Ml Sdv) Confirm Administered Dose 100 mg .ROUTE .STK-MED ONE Stop: 01/29/21 02:57 Last Admin: 01/29/21 03:10 Dose: Not Given Documented by: Heparin Sodium (Porcine) (Heparin Sodium 5,000 Units/Ml Vial) 4,000 units IVPUSH .BOLUS ONE Stop: 01/28/21 17:01 Last Admin: 01/28/21 16:53 Dose: 4,000 units Documented by: Heparin Sodium (Porcine) (Heparin Sodium 5,000 Units/Ml Vial) Confirm Administered Dose 5,000 units .ROUTE .STK-MED ONE Stop: 01/28/21 23:58 Last Admin: 01/28/21 23:59 Dose: 1,000 units Documented by: Levofloxacin/Dextrose 750 mg/ (Premix) 150 mls @ 100 mls/hr IV Q24H [facility] Last Admin: 01/29/21 09:20 Dose: 100 mls/hr Documented by: Norepinephrine Bitartrate 4 mg (/ Dextrose/Water) 250 mls @ 7.5 mls/hr IV TITRATE [facility]; Protocol Stop: 01/29/21 17:30 Last Admin: 01/29/21 12:11 Dose: 12 mcg/min, 45 mls/hr Documented by: Lactated Ringer's (Ringers, Lactated) 1,000 mls @ 999 mls/hr IV BOLUS ONE Stop: 01/28/21 11:19 Last Admin: 01/28/21 10:32 Dose: 999 mls/hr Documented by: Potassium Chloride 20 meq/Lidocaine HCl 2 ml/ Sodium Chloride 112 mls @ 50 mls/hr IV Q2H [facility] Stop: 01/29/21 07:29 Last Admin: 01/29/21 05:41 Dose: 50 mls/hr Documented by: Lidocaine HCl (Xylocaine-Mpf 1%) Confirm Administered Dose 2 mls @ as directed .ROUTE .STK-MED ONE Stop: 01/29/21 05:28 Last Admin: 01/29/21 05:42 Dose: Not Given Documented by: Potassium Chloride (Kcl In Water 20 Meq/100 Ml) Confirm Administered Dose 100 mls @ as directed .ROUTE .STK-MED ONE Stop: 01/29/21 05:28 Last Admin: 01/29/21 05:42 Dose: Not Given Documented by: Sodium Chloride (Normal Saline) 500 mls @ 999 mls/hr IV ASDIRECTED ONE Stop: 01/29/21 11:15 Last Admin: 01/29/21 11:04 Dose: 999 mls/hr Documented by: Vasopressin 100 units/ (Dextrose/Water) 255 mls @ 1.53 mls/hr IV TITRATE [facility]; Protocol Last Titration: 01/29/21 14:38 Dose: 0.03 units/min, 4.59 mls/hr Documented by: Phenylephrine HCl 20 mg/ (Dextrose/Water) 250 mls @ 30 mls/hr IV TITRATE [facility]; Protocol Sodium Chloride (Normal Saline) 500 mls @ 500 mls/hr IV .BOLUS ONE Stop: 01/30/21 05:20 Last Admin: 01/30/21 04:26 Dose: 500 mls/hr Documented by: Lorazepam (Lorazepam 2 Mg/Ml Sdv) 0.5 mg IVPUSH Q4H PRN PRN Reason: Nausea/Vomiting Last Admin: 01/29/21 01:15 Dose: 0.5 mg Documented by: Methylprednisolone Sodium Succinate (Methylprednisolone Sodium Succinate 125 Mg /2 Ml Sdv) 125 mg IVPUSH ONETIME ONE Stop: 01/29/21 04:10 Last Admin: 01/29/21 04:30 Dose: 125 mg Documented by: Metoprolol Tartrate (Metoprolol Tartrate 25 Mg Tab) 25 mg PO ONETIME ONE Stop: 01/28/21 14:41 Last Admin: 01/28/21 15:59 Dose: 25 mg Documented by: Morphine Sulfate (Morphine 4 Mg/Ml Syringe) 4 mg IVPUSH ONETIME ONE Stop: 01/28/21 09:25 Last Admin: 01/28/21 09:32 Dose: 4 mg Documented by: Nystatin (Nystatin Topical Powder 15 Gm Bottle) 0 gm TOP TID [facility] Last Admin: 01/29/21 09:18 Dose: 1 applic Documented by: Potassium Chloride (Potassium Chloride 20 Meq Tab.Er) 40 meq PO ONETIME ONE Stop: 01/30/21 08:31 Last Admin: 01/30/21 08:31 Dose: 40 meq Documented by: - Exam Quality Assessment: Supplemental Oxygen Urinary Catheter Total Time: 0Days 9Hours General: Alert, Cooperative, No Acute Distress HEENT: Pupils Equal Lungs: Normal Respiratory Effort, Crackles (Few both bases) Cardiovascular: Regular Rate, Irregular Rhythm, Murmurs. No: Gallops GI/Abdominal Exam: Normal Bowel Sounds, Soft, Non-Tender, No Distention Extremities: No Pedal Edema, Other (Warm and well-perfused). No: Increased Warmth Peripheral Pulses: 1+: Dorsalis Pedis (L), Dorsalis Pedis (R) Skin: Warm, Dry. No: Rash Psy/Mental Status: Alert, Normal Affect - Patient Data Lab Results Last 24 hrs: Laboratory Results - last 24 hr 01/29/21 01/29/21 01/29/21 Range/Units 08:56 12:56 12:56 WBC (4.5-11.0) K/uL RBC (3.30-5.50) M/uL Hgb (12.0-15.0) g/dL Hct (36.0-48.0) % MCV (80-98) fL MCH (27-31) pg MCHC (32-36) % Plt Count (150-400) K/uL APTT 66.7 H (27.0-36.0) sec Puncture Site Rt brachial ABG pH 7.429 (7.350-7.450) ABG pCO2 31.5 L (35.0-42.0) mmHg ABG pO2 71.8 L (75.0-100.0) mmHg ABG HCO3 20.5 L (22.0-26.0) mmol/L ABG Total CO2 18.1 L (21.0-25.0) mmol/L ABG O2 Saturation 94.2 L (95.0-98.0) % ABG O2 Content 17.5 (15.0-23.0) %vol ABG Base Excess -2.4 mm/L ABG Hemoglobin 13.6 (12.0-16.0) g/dL ABG Oxyhemoglobin 91.8 % ABG Carboxyhemoglobin 1.7 H (0.0-1.6) % ABG Methemoglobin 0.8 % Grupo Test Not performed O2 Delivery Device Nasal cannula Oxygen Flow Rate 3.0 L Sodium (140-148) mmol/L Potassium (3.6-5.2) mmol/L Chloride (100-108) mmol/L Carbon Dioxide (21-32) mmol/L Anion Gap (5.0-14.0) mmol/L BUN (7-18) mg/dL Creatinine (0.6-1.0) mg/dL Est Cr Clr Drug Dosing mL/min Estimated GFR (MDRD) (>60) Glucose (74-106) mg/dL Lactic Acid 1.1 (0.4-2.0) mmol/L Calcium (8.5-10.1) mg/dL Total Bilirubin (0.2-1.0) mg/dL AST (15-37) U/L ALT (12-78) U/L Alkaline Phosphatase (46-116) U/L Troponin I (0.000-0.056) ng/mL Total Protein (6.4-8.2) g/dL Albumin (3.4-5.0) g/dL Globulin (2.3-3.5) g/dL Albumin/Globulin Ratio (1.2-2.2) 01/29/21 01/29/21 01/29/21 Range/Units 13:12 15:43 21:08 WBC (4.5-11.0) K/uL RBC (3.30-5.50) M/uL Hgb (12.0-15.0) g/dL Hct (36.0-48.0) % MCV (80-98) fL MCH (27-31) pg MCHC (32-36) % Plt Count (150-400) K/uL APTT 86.7 H 71.0 H (27.0-36.0) sec Puncture Site ABG pH (7.350-7.450) ABG pCO2 (35.0-42.0) mmHg ABG pO2 (75.0-100.0) mmHg ABG HCO3 (22.0-26.0) mmol/L ABG Total CO2 (21.0-25.0) mmol/L ABG O2 Saturation (95.0-98.0) % ABG O2 Content (15.0-23.0) %vol ABG Base Excess mm/L ABG Hemoglobin (12.0-16.0) g/dL ABG Oxyhemoglobin % ABG Carboxyhemoglobin (0.0-1.6) % ABG Methemoglobin % Grupo Test O2 Delivery Device Oxygen Flow Rate L Sodium (140-148) mmol/L Potassium (3.6-5.2) mmol/L Chloride (100-108) mmol/L Carbon Dioxide (21-32) mmol/L Anion Gap (5.0-14.0) mmol/L BUN (7-18) mg/dL Creatinine (0.6-1.0) mg/dL Est Cr Clr Drug Dosing mL/min Estimated GFR (MDRD) (>60) Glucose (74-106) mg/dL Lactic Acid (0.4-2.0) mmol/L Calcium (8.5-10.1) mg/dL Total Bilirubin (0.2-1.0) mg/dL AST (15-37) U/L ALT (12-78) U/L Alkaline Phosphatase (46-116) U/L Troponin I 2.360 H* (0.000-0.056) ng/mL Total Protein (6.4-8.2) g/dL Albumin (3.4-5.0) g/dL Globulin (2.3-3.5) g/dL Albumin/Globulin Ratio (1.2-2.2) 01/30/21 01/30/21 01/30/21 Range/Units 02:53 05:11 05:50 WBC 17.1 H (4.5-11.0) K/uL RBC 4.08 (3.30-5.50) M/uL Hgb 13.1 (12.0-15.0) g/dL Hct 37.4 (36.0-48.0) % MCV 92 (80-98) fL MCH 32 H (27-31) pg MCHC 35 (32-36) % Plt Count 343 (150-400) K/uL APTT 51.7 H (27.0-36.0) sec Puncture Site Rt brachial ABG pH 7.408 (7.350-7.450) ABG pCO2 33.1 L (35.0-42.0) mmHg ABG pO2 114.0 H (75.0-100.0) mmHg ABG HCO3 20.5 L (22.0-26.0) mmol/L ABG Total CO2 18.2 L (21.0-25.0) mmol/L ABG O2 Saturation 98.5 H (95.0-98.0) % ABG O2 Content 18.2 (15.0-23.0) %vol ABG Base Excess -2.9 mm/L ABG Hemoglobin 13.4 (12.0-16.0) g/dL ABG Oxyhemoglobin 95.9 % ABG Carboxyhemoglobin 1.9 H (0.0-1.6) % ABG Methemoglobin 0.7 % Grupo Test Not performed O2 Delivery Device Bipap Oxygen Flow Rate L Sodium (140-148) mmol/L Potassium (3.6-5.2) mmol/L Chloride (100-108) mmol/L Carbon Dioxide (21-32) mmol/L Anion Gap (5.0-14.0) mmol/L BUN (7-18) mg/dL Creatinine (0.6-1.0) mg/dL Est Cr Clr Drug Dosing mL/min Estimated GFR (MDRD) (>60) Glucose (74-106) mg/dL Lactic Acid (0.4-2.0) mmol/L Calcium (8.5-10.1) mg/dL Total Bilirubin (0.2-1.0) mg/dL AST (15-37) U/L ALT (12-78) U/L Alkaline Phosphatase (46-116) U/L Troponin I (0.000-0.056) ng/mL Total Protein (6.4-8.2) g/dL Albumin (3.4-5.0) g/dL Globulin (2.3-3.5) g/dL Albumin/Globulin Ratio (1.2-2.2) 01/30/21 01/30/21 Range/Units 05:50 05:50 WBC (4.5-11.0) K/uL RBC (3.30-5.50) M/uL Hgb (12.0-15.0) g/dL Hct (36.0-48.0) % MCV (80-98) fL MCH (27-31) pg MCHC (32-36) % Plt Count (150-400) K/uL APTT (27.0-36.0) sec Puncture Site ABG pH (7.350-7.450) ABG pCO2 (35.0-42.0) mmHg ABG pO2 (75.0-100.0) mmHg ABG HCO3 (22.0-26.0) mmol/L ABG Total CO2 (21.0-25.0) mmol/L ABG O2 Saturation (95.0-98.0) % ABG O2 Content (15.0-23.0) %vol ABG Base Excess mm/L ABG Hemoglobin (12.0-16.0) g/dL ABG Oxyhemoglobin % ABG Carboxyhemoglobin (0.0-1.6) % ABG Methemoglobin % [employer] Test O2 Delivery Device Oxygen Flow Rate L Sodium 133 L (140-148) mmol/L Potassium 3.4 L (3.6-5.2) mmol/L Chloride 99 L (100-108) mmol/L Carbon Dioxide 21 (21-32) mmol/L Anion Gap 16.4 H (5.0-14.0) mmol/L BUN 24 H (7-18) mg/dL Creatinine 1.2 H (0.6-1.0) mg/dL Est Cr Clr Drug Dosing 37.51 mL/min Estimated GFR (MDRD) 44 L (>60) Glucose 189 H (74-106) mg/dL Lactic Acid 1.2 (0.4-2.0) mmol/L Calcium 8.5 (8.5-10.1) mg/dL Total Bilirubin 0.7 (0.2-1.0) mg/dL AST 35 (15-37) U/L ALT 76 (12-78) U/L Alkaline Phosphatase 77 (46-116) U/L Troponin I 1.130 H* (0.000-0.056) ng/mL Total Protein 6.1 L (6.4-8.2) g/dL Albumin 2.7 L (3.4-5.0) g/dL Globulin 3.4 (2.3-3.5) g/dL Albumin/Globulin Ratio 0.8 L (1.2-2.2) Result Diagrams: 01/30/21 05:50 01/30/21 05:50 Arturo Results Last 24 hrs: Microbiology 01/28/21 09:37 Aerobic Blood Culture - Preliminary Blood - Arm, Left NO GROWTH AFTER 1 DAY Anaerobic Blood Culture - Preliminary NO GROWTH AFTER 1 DAY 01/28/21 09:52 Aerobic Blood Culture - Preliminary Blood - Arm, Left NO GROWTH AFTER 1 DAY Anaerobic Blood Culture - Preliminary NO GROWTH AFTER 1 DAY Sepsis Event Note - Evaluation Sepsis Screening Result: Severe Sepsis Risk - Focused Exam Vital Signs: Vital Signs Temp Pulse Pulse Resp BP BP Pulse Ox 01/30/21 07:06 88 01/30/21 06:00 83 25 H 123/58 L 96 01/30/21 05:00 36.1 C 83 28 H 72/33 L 91 L 01/30/21 04:00 35.6 C L 82 25 H 88/43 L 91 L 01/30/21 03:00 88 25 H 78/50 L 96 01/30/21 02:00 96 23 H 82/58 L 96 01/30/21 01:00 83 24 H 75/55 L 96 01/30/21 00:00 35.8 C L 96 24 H 92/54 L 97 01/29/21 23:00 74 26 H 97/60 96 01/29/21 22:10 91 115/73 01/29/21 22:00 82 34 H 89/53 L 97 01/29/21 21:00 94 25 H 100/50 L 96 Pulse Ox 01/30/21 07:06 92 L 01/30/21 06:00 01/30/21 05:00 01/30/21 04:00 01/30/21 03:00 01/30/21 02:00 01/30/21 01:00 01/30/21 00:00 01/29/21 23:00 01/29/21 22:10 01/29/21 22:00 01/29/21 21:00 - Problem List & Annotations (1) Congestive heart failure SNOMED Code(s): 23490679 Code(s): I50.9 - HEART FAILURE, UNSPECIFIED Status: Acute Current Visit: Yes Qualifiers: Heart failure type: unspecified Heart failure chronicity: acute Qualified Code(s): I50.9 - Heart failure, unspecified (2) Acute respiratory failure with hypoxia SNOMED Code(s): 58375270, 319642984 Code(s): J96.01 - ACUTE RESPIRATORY FAILURE WITH HYPOXIA Status: Acute Current Visit: Yes (3) Atrial fibrillation with rapid ventricular response SNOMED Code(s): 849033124579509 Code(s): I48.91 - UNSPECIFIED ATRIAL FIBRILLATION Status: Acute Current Visit: Yes (4) NSTEMI (non-ST elevated myocardial infarction) SNOMED Code(s): 60220589 Code(s): I21.4 - NON-ST ELEVATION (NSTEMI) MYOCARDIAL INFARCTION Status: Acute Current Visit: Yes (5) Mita rash of groin SNOMED Code(s): 184074041, 925357892 Code(s): B37.89 - OTHER SITES OF CANDIDIASIS Status: Resolved Priority: Medium Current Visit: No (6) CKD (chronic kidney disease), stage III SNOMED Code(s): 040389598 Code(s): N18.3 - CHRONIC KIDNEY DISEASE, STAGE 3 (MODERATE) * DO NOT USE * Status: Chronic Current Visit: No Qualifiers: Chronic kidney disease stage 3 subtype: stage 3b (GFR 30-44) Qualified Code(s): N18.32 - Chronic kidney disease, stage 3b - Problem List Review Problem List Initiated/Reviewed/Updated: Yes - My Orders Last 24 Hours: My Active Orders 01/29/21 09:00 Rosuvastatin [Crestor] 20 mg PO DAILY 01/29/21 12:00 methylPREDNISolone Sod Succ [Solu-MEDROL] 62.5 mg IVPUSH Q8H 01/29/21 12:57 EKG 12 Lead [EK] Urgent 01/29/21 14:00 Nystatin [Nystatin Crm] 1 gm TOP TID Nystatin [Nystop] 1 gm TOP TID 01/29/21 15:15 Vasopressin 100 units Dextrose 5% in Water 250 ml IV TITRATE 01/30/21 07:00 Echo Comp wo Cont [US] Routine 01/30/21 09:00 Vasopressin 40 units Dextrose 5% in Water 100 ml IV TITRATE 01/30/21 10:30 Pastor Catheter Insertion [Insert Urinary Catheter] [OM.PC] Q24H - Plan Plan:: ASSESSMENT AND PLAN - Congestive heart failure-complicated by significant acute respiratory failure with hypoxia. Ejection fraction currently unknown. Concern for stress cardiomyopathy based on bedside ultrasound. Volume status seems appropriate this morning though she continues to be hypotensive and is still requiring vasopressor support. -Hold on diuresis -Norepinephrine and vasopressin to maintain blood pressure for diuresis -Formal echocardiogram today -Rate control of atrial fibrillation as below Non-ST elevation myocardial infarction-troponin peaked at 3.95 and is now trending down. No chest pain but does have some dyspnea. Concern for cardiogenic shock versus mixed shock picture. No evidence for infection. Occasional short runs of nonsustained ventricular tachycardia. -Continue heparin infusion -Aspirin -Metoprolol for improved rate control -Vasopressor support Acute exacerbation of COPD with bronchospasm-acute onset 9/8 with wheezing, respiratory failure with both hypoxia and hypercapnia. Responded well to steroids and bronchodilators. Off noninvasive ventilation and doing well with nasal cannula. -Steroids every 8 hours -Scheduled and as needed nebulizers -Supplement oxygen, consider noninvasive ventilation again if declining -Continue empiric antibiotics Atrial fibrillation with rapid ventricular response-unclear if this provoked the heart failure or was provoked by CHF. She has remained in sinus rhythm but does have some PACs. -Oral metoprolol -Cardiac monitoring Stage III chronic kidney disease-stable. Tobacco dependence-encourage cessation Maintenance issues - -DVT prophylaxis-Heparin -GI prophylaxis-PPI -[id number] -Pastor catheter-placed for strict intake and output monitoring in a critical patient CODE STATUS -no CPR but intubation okay Disposition -I anticipate transfer to a higher level of care as soon as a bed is available. None have been available the past 48 hours. Primary care physician - Soheila Mims M.D.
[2021-01-30] MEDS: Aspirin 81 MG Tab.EC PO SCH (09:15)
[2021-01-30] MEDS: Metoprolol Tartrate 25 MG Tab PO SCH (09:20)
[2021-01-30] MEDS ORDERED: Potassium Chloride 20 MEQ, Lidocaine 1% 2 ML in Sodium Chloride 0.9% 100 ML IV ONE (10:30)
[2021-01-30] MEDS ORDERED: Benzonatate 100 MG Cap PO PRN (14:03)
--- NOTE | 2021-01-30 14:35 | PCM.EKG ---
#1 Interpretation EKG Date: 01/29/21 Time: 13:08 Rhythm: NSR Rate (Beats/Min): 70 [place]: LAD-Left [place] Deviation (LAFB) P-Wave: Present QRS: Normal ST-T: Other (T wave inversions in 1, 2 and V2 through V6) QT: Prolonged (Corrected QTC is 547) [place]/PQ Interval: First-degree AV block Comparison: Change From Previous EKG (New T wave inversions in leads I, II and V2 through V6)
[2021-01-30] MEDS ORDERED: Furosemide 20 MG/2 ML VIAL IVPUSH ONE (17:50)
[2021-01-30] MEDS ORDERED: [UNRECOGNIZED DRUG - OTHER] SUBCUT ONE (20:00)
[2021-01-30] MEDS ORDERED: NS SUBCUT ONE (20:00)
[2021-01-30] MEDS ORDERED: Phentolamine 5 MG Vial SUBCUT ONE (20:00)
[2021-01-30] MEDS ORDERED: Metoprolol Tartrate 5 MG/5 ML SDV IVPUSH ONE (21:22)
[2021-01-30] MEDS ORDERED: Heparin Sodium 5,000 UNITS in Sodium Chloride 0.9% 500 ML IV SCH (21:30)
[2021-01-30] MEDS ORDERED: Digoxin 500 MCG/2 ML Amp IVPUSH ONE (21:32)
--- NOTE | 2021-01-30 21:32 | PCM.PRNOTE ---
- Free Text/Narrative Note: Date of service: 01/30/2021 Proposed procedure: right internal jugular triple-lumen catheter insertion with US Guidance Indication for procedure: Cardiogenic shock, poor IV access, need for central venous pressure monitoring Barrier precautions: cap, mask with face shield, sterile gown, sterile gloves, sterile US probe cover Description of the procedure: after informed consent was obtained from her son Hugo over the telephone we prepped for the procedure. The patient was prepped and draped in a sterile fashion. The right internal jugular vein was identified using the linear probe of the ultrasound. Using the Seldinger technique a needle is introduced into the vein under direct visualization with the ultr asound. The wire was then introduced through the needle and the needle was removed. A small shashi was made in the skin adjacent to the wire and the dilator probe was introduced over the wire and the tissue was dilated appropriately. The dilator was then removed and the catheter was inserted over the wire. The catheter was inserted to a depth of 15 cm. The wire was then withdrawn. Caps were placed and the ports were flushed. All 3 ports flushed easily. The catheter was sutured to the skin on the right side of the neck. The procedure was completed at this point and the neck was cleaned and a OpSite dressing was applied. The patient tolerated the procedure well without any obvious complications. A portable chest x-ray is pending at the time of this note. Humble Mims MD
--- NOTE | 2021-01-30 22:13 | CRLCR ---
For Patients: As a result of the Century Cures Act, medical imaging exams and procedure reports are released immediately into your electronic medical record. You may view this report before your referring provider. If you have questions, please contact your health care provider. HISTORY: Placement COMPARISON: From yesterday FINDINGS: A portable semi-erect AP view of the chest was obtained at 21 48 hours. There is a right internal jugular central line with its tip in satisfactory position in the superior vena cava. There is no sign of pneumothorax on the right. Sensitivity for a pneumothorax is limited by semi-erect positioning. There is stable mild prominence of interstitial markings and mild vascular engorgement consistent with mild congestive failure. There is increased patchy consolidation in the lateral right upper lobe adjacent to the minor fissure and in the right infrahilar region, consistent with worsening multifocal pneumonia. Again seen is a tiny right pleural effusion. The heart remains mildly enlarged. The mediastinum is otherwise normal in appearance. The osseous structures are normal in appearance for the patient`s age. IMPRESSION: Satisfactory positioning of right internal jugular central line with no sign of pneumothorax. Sensitivity limited by semi-erect positioning. Worsening multifocal infiltrates in the right upper lobe in the infrahilar right lower lung consistent with worsening pneumonia. Stable mild congestive failure and mild cardiomegaly. Dictated by Antonio Conn MD @ 01/30/2021 10:12:19 PM (Electronically Signed)
[2021-01-30] MEDS: Melatonin 3 MG Tab PO SCH (23:08)
[2021-01-30] MEDS ORDERED: Amiodarone 150 MG/3 ML SDV IVPUSH ONE (23:24)
[2021-01-30] MEDS ORDERED: Heparin Sodium 5,000 Units/ML Vial IVPUSH ONE (23:30)
[2021-01-31] MEDS: Morphine 2 MG/ML SYRINGE IVPUSH PRN ×8 (01:44→18:50)
[2021-01-31] MEDS: Heparin Sodium/D5W 25,000 UNITS/500 ML BAG IV SCH (02:24)
[2021-01-31] MEDS: Levalbuterol HCl 1.25 MG/3 ML Neb NEB PRN (03:12)
[2021-01-31] MEDS: Metoprolol Tartrate 5 MG/5 ML SDV IVPUSH SCH ×4 (03:14→18:14)
[2021-01-31] MEDS: LORazepam 2 MG/ML SDV IVPUSH PRN ×2 (03:15→16:53)
[2021-01-31] MEDS: methylPREDNISolone Sodium Succinate 125 MG/2 ML SDV IVPUSH SCH ×2 (03:15→11:56)
[2021-01-31] MEDS: Norepinephrine 8 MG in Dextrose 5% in Water 242 ML IV SCH ×4 (03:29→15:20)
[2021-01-31] MEDS: Levalbuterol HCl 1.25 MG/3 ML Neb NEB SCH ×3 (07:03→14:37)
[2021-01-31] MEDS: Aspirin 81 MG Tab.EC PO SCH ×2 (08:15→08:25)
[2021-01-31] MEDS: Rosuvastatin 10 MG Tab PO SCH ×2 (08:15→08:24)
[2021-01-31] MEDS: Pantoprazole 40 MG Tab.CR PO SCH ×2 (08:15→08:24)
[2021-01-31] MEDS: Nystatin Topical Powder 15 GM Bottle TOP SCH ×2 (08:26→14:03)
[2021-01-31] MEDS: Nystatin Crm 15 GM Tube TOP SCH ×2 (08:26→14:03)
[2021-01-31] MEDS ORDERED: Furosemide 20 MG/2 ML VIAL IVPUSH ONE (09:00)
[2021-01-31] MEDS ORDERED: Levofloxacin/Dextrose 5%-Water 750 MG in Premix Bag 1 BAG IV SCH (09:30)
--- NOTE | 2021-01-31 09:53 | PCM.EKG ---
#1 Interpretation EKG Date: 01/30/21 Time: 20:37 Rhythm: A-Fib Rate (Beats/Min): 135 [place]: LAD-Left [place] Deviation P-Wave: Variable QRS: Normal ST-T: Depressed (slight in V5-V6) QT: Prolonged (QTc 500) ID/PQ Interval: n/a Comparison: Change From Previous EKG (new afib) EKG Interpretation Comments: inverted T in I, V5 and V6
--- NOTE | 2021-01-31 13:30 | PCM.PN ---
- General Info Date of Service: 01/31/21 Subjective Update: Patient went back into atrial fibrillation yesterday evening. She had rapid ventricular response that did not respond to metoprolol or digoxin so we started her on IV amiodarone. We had difficulty with IV access and with her persistent hypotension a central line was placed to monitor central venous pressure as well as provide better access. She was on noninvasive ventilation part of the night but is back on nasal cannula this morning. She feels short of breath. She does not have any chest pain. She is sleepy but alert and interactive. Troponin level is very similar to yesterday's. Still requiring 2 vasopressors. Despite multiple calls to attempt to find a bed for transfer we have been unable to locate a critical care bed to help manage her NSTEMI. - Patient Data Vitals - Most Recent: Last Vital Signs Temp 36.6 C 01/31/21 11:00 Pulse 109 H 01/31/21 10:22 Resp 32 H 01/31/21 11:00 BP 100/64 01/31/21 11:00 Pulse Ox 94 L 01/31/21 11:00 Weight - Most Recent: 93.349 kg I&O - Last 24 Hours: Intake & Output 01/30/21 01/31/21 01/31/21 22:59 06:59 14:59 Intake Total 763 920 Output Total 600 1125 1350 Balance 163 -205 -1350 Lab Results Last 24 Hours: Laboratory Results - last 24 hr 01/30/21 01/30/21 01/31/21 Range/Units 15:22 22:30 04:50 WBC 19.4 H (4.5-11.0) K/uL RBC 4.08 (3.30-5.50) M/uL Hgb 13.2 (12.0-15.0) g/dL Hct 37.8 (36.0-48.0) % MCV 93 (80-98) fL MCH 32 H (27-31) pg MCHC 35 (32-36) % Plt Count 346 (150-400) K/uL APTT 42.6 H 43.0 H (27.0-36.0) sec Sodium (140-148) mmol/L Potassium (3.6-5.2) mmol/L Chloride (100-108) mmol/L Carbon Dioxide (21-32) mmol/L Anion Gap (5.0-14.0) mmol/L BUN (7-18) mg/dL Creatinine (0.6-1.0) mg/dL Est Cr Clr Drug Dosing mL/min Estimated GFR (MDRD) (>60) Glucose (74-106) mg/dL Calcium (8.5-10.1) mg/dL Magnesium (1.8-2.4) mg/dL Total Bilirubin (0.2-1.0) mg/dL AST (15-37) U/L ALT (12-78) U/L Alkaline Phosphatase (46-116) U/L Troponin I (0.000-0.056) ng/mL Total Protein (6.4-8.2) g/dL Albumin (3.4-5.0) g/dL Globulin (2.3-3.5) g/dL Albumin/Globulin Ratio (1.2-2.2) 01/31/21 01/31/21 Range/Units 04:50 04:50 WBC (4.5-11.0) K/uL RBC (3.30-5.50) M/uL Hgb (12.0-15.0) g/dL Hct (36.0-48.0) % MCV (80-98) fL MCH (27-31) pg MCHC (32-36) % Plt Count (150-400) K/uL APTT 68.3 H (27.0-36.0) sec Sodium 134 L (140-148) mmol/L Potassium 3.8 (3.6-5.2) mmol/L Chloride 98 L (100-108) mmol/L Carbon Dioxide 27 (21-32) mmol/L Anion Gap 12.8 (5.0-14.0) mmol/L BUN 37 H D (7-18) mg/dL Creatinine 1.4 H (0.6-1.0) mg/dL Est Cr Clr Drug Dosing 32.15 mL/min Estimated GFR (MDRD) 37 L (>60) Glucose 170 H (74-106) mg/dL Calcium 8.7 (8.5-10.1) mg/dL Magnesium 2.2 (1.8-2.4) mg/dL Total Bilirubin 0.9 (0.2-1.0) mg/dL AST 75 H D (15-37) U/L ALT 123 H (12-78) U/L Alkaline Phosphatase 78 (46-116) U/L Troponin I 1.076 H* (0.000-0.056) ng/mL Total Protein 6.0 L (6.4-8.2) g/dL Albumin 3.0 L (3.4-5.0) g/dL Globulin 3.0 (2.3-3.5) g/dL Albumin/Globulin Ratio 1.0 L (1.2-2.2) Arturo Results Last 24 Hours: Microbiology 01/28/21 09:52 Aerobic Blood Culture - Preliminary Blood - Arm, Left NO GROWTH AFTER 3 DAYS Anaerobic Blood Culture - Preliminary NO GROWTH AFTER 3 DAYS 01/28/21 09:37 Aerobic Blood Culture - Preliminary Blood - Arm, Left NO GROWTH AFTER 3 DAYS Anaerobic Blood Culture - Preliminary NO GROWTH AFTER 3 DAYS Med Orders - Current: Current Medications Acetaminophen (Acetaminophen 325 Mg Tab) 650 mg PO Q4H PRN PRN Reason: Pain (Mild 1-3)/fever Aspirin (Aspirin 81 Mg Tab.Ec) 81 mg PO DAILY [facility] Last Admin: 01/31/21 08:25 Dose: Not Given Documented by: Benzonatate (Benzonatate 100 Mg Cap) 100 mg PO Q8H PRN PRN Reason: Cough Heparin Sodium (Porcine) (Heparin Sodium 100 Units/Ml 5 Ml Syringe) 500 units FLUSH ASDIRECTED PRN PRN Reason: Other Last Admin: 01/30/21 21:49 Dose: 500 units Documented by: Heparin Sodium/Dextrose (Heparin 25,000 Units In D5w 500 Ml) 25,000 units in 500 mls @ 22.56 mls/hr IV TITRATE JOSE CRUZ; Protocol Last Admin: 01/31/21 02:24 Dose: 18 units/kg/hr, 33.84 mls/hr Documented by: Norepinephrine Bitartrate 8 mg (/ Dextrose/Water) 250 mls @ 3.75 mls/hr IV TITRATE JOSE CRUZ; Protocol Last Admin: 01/31/21 03:29 Dose: 11 mcg/min, 20.625 mls/hr Documented by: Levofloxacin/Dextrose 750 mg/ (Premix) 150 mls @ 100 mls/hr IV Q48H JOSE CRUZ Last Admin: 01/31/21 09:26 Dose: 100 mls/hr Documented by: Heparin Sodium (Porcine) 5,000 (units/ Sodium Chloride) 501 mls @ 0 mls/hr IV ASDIRECTED [facility] Last Admin: 01/30/21 22:28 Dose: 1 mls/hr Documented by: Phenylephrine HCl 40 mg/ (Dextrose/Water) 254 mls @ 15.24 mls/hr IV TITRATE [facility]; Protocol Last Admin: 01/30/21 22:50 Dose: 40 mcg/min, 15.24 mls/hr Documented by: Ceftazidime 1 gm/ Sodium (Chloride) 50 mls @ 100 mls/hr IV Q12H [facility] Last Admin: 01/31/21 11:07 Dose: 100 mls/hr Documented by: Amiodarone HCl 450 mg/ (Dextrose/Water) 250 mls @ 33.333 mls/hr IV ASDIRECTED [facility]; Protocol Last Admin: 01/31/21 07:35 Dose: 0.5 mg/min, 16.667 mls/hr Documented by: Levalbuterol HCl (Levalbuterol Hcl 1.25 Mg/3 Ml Neb) 1.25 mg NEB Q2H PRN PRN Reason: Dyspnea Last Admin: 01/31/21 03:12 Dose: 1.25 mg Documented by: Levalbuterol HCl (Levalbuterol Hcl 1.25 Mg/3 Ml Neb) 1.25 mg NEB QIDRT [facility] Last Admin: 01/31/21 10:38 Dose: 1.25 mg Documented by: Lorazepam (Lorazepam 2 Mg/Ml Sdv) 1 mg IVPUSH Q2H PRN PRN Reason: Anxiety Last Admin: 01/31/21 03:15 Dose: 1 mg Documented by: Lorazepam (Lorazepam 2 Mg/Ml Sdv) 0.5 mg IVPUSH Q2H PRN PRN Reason: Anxiety Last Admin: 01/30/21 14:30 Dose: 0.5 mg Documented by: Magnesium Hydroxide (Magnesium Hydroxide 400 Mg/5 Ml Susp 30 Ml Cup) 30 ml PO Q12H PRN PRN Reason: Constipation Melatonin (Melatonin 3 Mg Tab) 9 mg PO BEDTIME [facility] Last Admin: 01/30/21 23:08 Dose: Not Given Documented by: Methylprednisolone Sodium Succinate (Methylprednisolone Sodium Succinate 125 Mg/2 Ml Sdv) 62.5 mg IVPUSH Q8H [facility] Last Admin: 01/31/21 11:56 Dose: 62.5 mg Documented by: Metoprolol Tartrate (Metoprolol Tartrate 5 Mg/5 Ml Sdv) 5 mg IVPUSH Q6H [facility] Last Admin: 01/31/21 10:22 Dose: 5 mg Documented by: Morphine Sulfate (Morphine 2 Mg/Ml Syringe) 2 mg IVPUSH Q2H PRN PRN Reason: Dyspnea Last Admin: 01/31/21 11:21 Dose: 2 mg Documented by: Nystatin (Nystatin Crm 15 Gm Tube) 1 gm TOP TID [facility] Last Admin: 01/31/21 08:26 Dose: 1 applic Documented by: Nystatin (Nystatin Topical Powder 15 Gm Bottle) 1 gm TOP TID [facility] Last Admin: 01/31/21 08:26 Dose: 1 applicful Documented by: Ondansetron HCl (Ondansetron 4 Mg/2 Ml Sdv) 4 mg IV Q6H PRN PRN Reason: Nausea/Vomiting Ondansetron HCl (Ondansetron 4 Mg Tab.Dis) 4 mg PO Q6H PRN PRN Reason: Nausea able to take PO Pantoprazole Sodium (Pantoprazole 40 Mg Tab.Cr) 40 mg PO ACBREAKFAST [facility] Last Admin: 01/31/21 08:24 Dose: Not Given Documented by: Polyethylene Glycol (Polyethylene Glycol 3350 Powder 17 Gm Packet) 17 gm PO DAILY PRN PRN Reason: Constipation Rosuvastatin Calcium (Rosuvastatin 10 Mg Tab) 20 mg PO DAILY [facility] Last Admin: 01/31/21 08:24 Dose: Not Given Documented by: Senna/Docusate Sodium (Docusate Sodium/Sennosides 50-8.6 Mg Tab) 1 tab PO BID PRN PRN Reason: Constipation Discontinued Medications Albuterol (Albuterol 0.083% 2.5 Mg/3 Ml Neb Soln) 2.5 mg NEB Q2H PRN PRN Reason: Wheezing Last Admin: 01/29/21 05:24 Dose: 2.5 mg Documented by: Albuterol/Ipratropium (Albuterol/Ipratropium 3.0-0.5 Mg/3 Ml Neb Soln) 3 ml NEB ONETIME ONE Stop: 01/28/21 09:18 Last Admin: 01/28/21 09:20 Dose: 3 ml Documented by: Albuterol/Ipratropium (Albuterol/Ipratropium 3.0-0.5 Mg/3 Ml Neb Soln) Confirm Administered Dose 3 ml .ROUTE .STK-MED ONE Stop: 01/28/21 09:18 Last Admin: 01/28/21 09:20 Dose: Not Given Documented by: Amiodarone HCl (Amiodarone 150 Mg/3 Ml Sdv) 150 mg IVPUSH ONETIME ONE Stop: 01/30/21 23:25 Last Admin: 01/30/21 23:45 Dose: 150 mg Documented by: Aspirin (Aspirin 81 Mg Tab.Chew) 324 mg PO ONETIME ONE Stop: 01/29/21 09:16 Last Admin: 01/29/21 09:19 Dose: 324 mg Documented by: Digoxin (Digoxin 500 Mcg/2 Ml Amp) 125 mcg IVPUSH ONETIME ONE Stop: 01/28/21 14:41 Last Admin: 01/28/21 16:04 Dose: 125 mcg Documented by: Digoxin (Digoxin 500 Mcg/2 Ml Amp) 125 mcg IVPUSH ONETIME ONE Stop: 01/30/21 21:33 Last Admin: 01/30/21 21:46 Dose: 125 mcg Documented by: Furosemide (Furosemide 40 Mg/4 Ml Vial) 80 mg IVPUSH ONETIME ONE Stop: 01/28/21 11:49 Last Admin: 01/28/21 12:05 Dose: 80 mg Documented by: Furosemide (Furosemide 40 Mg/4 Ml Vial) 60 mg IVPUSH ONETIME ONE Stop: 01/28/21 18:12 Last Admin: 01/28/21 18:22 Dose: 60 mg Documented by: Furosemide (Furosemide 40 Mg/4 Ml Vial) 60 mg IVPUSH ONETIME ONE Stop: 01/29/21 02:55 Last Admin: 01/29/21 03:00 Dose: 60 mg Documented by: Furosemide (Furosemide 100 Mg/10 Ml Sdv) Confirm Administered Dose 100 mg .ROUTE .STK-MED ONE Stop: 01/29/21 02:57 Last Admin: 01/29/21 03:10 Dose: Not Given Documented by: Furosemide (Furosemide 20 Mg/2 Ml Vial) 20 mg IVPUSH ONETIME ONE Stop: 01/30/21 17:51 Last Admin: 01/30/21 19:04 Dose: 20 mg Documented by: Furosemide (Furosemide 20 Mg/2 Ml Vial) 20 mg IVPUSH ONETIME ONE Stop: 01/31/21 09:01 Last Admin: 01/31/21 09:26 Dose: 20 mg Documented by: Heparin Sodium (Porcine) (Heparin Sodium 5,000 Units/Ml Vial) 4,000 units IVPUSH .BOLUS ONE Stop: 01/28/21 17:01 Last Admin: 01/28/21 16:53 Dose: 4,000 units Documented by: Heparin Sodium (Porcine) (Heparin Sodium 5,000 Units/Ml Vial) Confirm Administered Dose 5,000 units .ROUTE .STK-MED ONE Stop: 01/28/21 23:58 Last Admin: 01/28/21 23:59 Dose: 1,000 units Documented by: Heparin Sodium (Porcine) (Heparin Sodium 5,000 Units/Ml Vial) 1,000 units IVPUSH .BOLUS ONE Stop: 01/30/21 23:31 Last Admin: 01/30/21 23:41 Dose: 1,000 units Documented by: Levofloxacin/Dextrose 750 mg/ (Premix) 150 mls @ 100 mls/hr IV Q24H [facility] Last Admin: 01/29/21 09:20 Dose: 100 mls/hr Documented by: Norepinephrine Bitartrate 4 mg (/ Dextrose/Water) 250 mls @ 7.5 mls/hr IV TITRATE [facility]; Protocol Stop: 01/29/21 17:30 Last Admin: 01/29/21 12:11 Dose: 12 mcg/min, 45 mls/hr Documented by: Lactated Ringer's (Ringers, Lactated) 1,000 mls @ 999 mls/hr IV BOLUS ONE Stop: 01/28/21 11:19 Last Admin: 01/28/21 10:32 Dose: 999 mls/hr Documented by: Potassium Chloride 20 meq/Lidocaine HCl 2 ml/ Sodium Chloride 112 mls @ 50 mls/hr IV Q2H JOSE CRUZ Stop: 01/29/21 07:29 Last Admin: 01/29/21 05:41 Dose: 50 mls/hr Documented by: Lidocaine HCl (Xylocaine-Mpf 1%) Confirm Administered Dose 2 mls @ as directed .ROUTE .STK-MED ONE Stop: 01/29/21 05:28 Last Admin: 01/29/21 05:42 Dose: Not Given Documented by: Potassium Chloride (Kcl In Water 20 Meq/100 Ml) Confirm Administered Dose 100 mls @ as directed .ROUTE .STK-MED ONE Stop: 01/29/21 05:28 Last Admin: 01/29/21 05:42 Dose: Not Given Documented by: Sodium Chloride (Normal Saline) 500 mls @ 999 mls/hr IV ASDIRECTED ONE Stop: 01/29/21 11:15 Last Admin: 01/29/21 11:04 Dose: 999 mls/hr Documented by: Vasopressin 100 units/ (Dextrose/Water) 255 mls @ 1.53 mls/hr IV TITRATE JOSE CRUZ; Protocol Last Titration: 01/29/21 14:38 Dose: 0.03 units/min, 4.59 mls/hr Documented by: Vasopressin 100 units/ (Dextrose/Water) 255 mls @ 1.53 mls/hr IV TITRATE JOSE CRUZ; Protocol Stop: 01/30/21 08:55 Last Titration: 01/30/21 09:05 Dose: 0.065 units/min, 9.945 mls/hr Documented by: Sodium Chloride (Normal Saline) 500 mls @ 500 mls/hr IV .BOLUS ONE Stop: 01/30/21 05:20 Last Admin: 01/30/21 04:26 Dose: 500 mls/hr Documented by: Vasopressin 40 units/ Dextrose (/Water) 102 mls @ 1.53 mls/hr IV TITRATE JOSE CRUZ; Protocol Last Titration: 01/30/21 23:44 Dose: 0 units/min, 0 mls/hr Documented by: Potassium Chloride 20 meq/Lidocaine HCl 2 ml/ Sodium Chloride 112 mls @ 56 mls/hr IV ONETIME ONE Stop: 01/30/21 12:29 Last Admin: 01/30/21 10:37 Dose: 56 mls/hr Documented by: Lorazepam (Lorazepam 2 Mg/Ml Sdv) 0.5 mg IVPUSH Q4H PRN PRN Reason: Nausea/Vomiting Last Admin: 01/29/21 01:15 Dose: 0.5 mg Documented by: Methylprednisolone Sodium Succinate (Methylprednisolone Sodium Succinate 125 Mg/2 Ml Sdv) 125 mg IVPUSH ONETIME ONE Stop: 01/29/21 04:10 Last Admin: 01/29/21 04:30 Dose: 125 mg Documented by: Metoprolol Tartrate (Metoprolol Tartrate 25 Mg Tab) 25 mg PO ONETIME ONE Stop: 01/28/21 14:41 Last Admin: 01/28/21 15:59 Dose: 25 mg Documented by: Metoprolol Tartrate (Metoprolol Tartrate 25 Mg Tab) 25 mg PO Q12H [facility] Last Admin: 01/30/21 09:20 Dose: 25 mg Documented by: Metoprolol Tartrate (Metoprolol Tartrate 5 Mg/5 Ml Sdv) 5 mg IVPUSH ONETIME ONE Stop: 01/30/21 21:23 Last Admin: 01/30/21 21:33 Dose: 5 mg Documented by: Morphine Sulfate (Morphine 4 Mg/Ml Syringe) 4 mg IVPUSH ONETIME ONE Stop: 01/28/21 09:25 Last Admin: 01/28/21 09:32 Dose: 4 mg Documented by: Nystatin (Nystatin Topical Powder 15 Gm Bottle) 0 gm TOP TID [facility] Last Admin: 01/29/21 09:18 Dose: 1 applic Documented by: Phentolamine Mesylate (Phentolamine 5 Mg Vial) 10 mg SUBCUT ONETIME ONE Stop: 01/30/21 20:01 Last Admin: 01/30/21 20:13 Dose: 10 mg Documented by: Potassium Chloride (Potassium Chloride 20 Meq Tab.Er) 40 meq PO ONETIME ONE Stop: 01/30/21 08:31 Last Admin: 01/30/21 08:31 Dose: 40 meq Documented by: - Exam Quality Assessment: Supplemental Oxygen Central Line Total Time: 0Days 10Hours Urinary Catheter Total Time: 2Days 21Hours General: Alert, Cooperative, No Acute Distress, Lethargic HEENT: Pupils Equal Lungs: Normal Respiratory Effort, Rhonchi (Diffuse) Cardiovascular: No Murmurs, Irregular Rhythm, Tachycardia GI/Abdominal Exam: Normal Bowel Sounds, Soft, No Distention Extremities: No Pedal Edema. No: Increased Warmth Skin: Warm, Dry, Other (Purple discoloration of the right chest where she had extravasation of the medication) Wound/Incisions: Other (Right IJ central line with no evidence for bleeding and no surrounding erythema) Psy/Mental Status: Alert. No: Agitated - Patient Data Lab Results Last 24 hrs: Laboratory Results - last 24 hr 01/30/21 01/30/21 01/31/21 Range/Units 15:22 22:30 04:50 WBC 19.4 H (4.5-11.0) K/uL RBC 4.08 (3.30-5.50) M/uL Hgb 13.2 (12.0-15.0) g/dL Hct 37.8 (36.0-48.0) % MCV 93 (80-98) fL MCH 32 H (27-31) pg MCHC 35 (32-36) % Plt Count 346 (150-400) K/uL APTT 42.6 H 43.0 H (27.0-36.0) sec Sodium (140-148) mmol/L Potassium (3.6-5.2) mmol/L Chloride (100-108) mmol/L Carbon Dioxide (21-32) mmol/L Anion Gap (5.0-14.0) mmol/L BUN (7-18) mg/dL Creatinine (0.6-1.0) mg/dL Est Cr Clr Drug Dosing mL/min Estimated GFR (MDRD) (>60) Glucose (74-106) mg/dL Calcium (8.5-10.1) mg/dL Magnesium (1.8-2.4) mg/dL Total Bilirubin (0.2-1.0) mg/dL AST (15-37) U/L ALT (12-78) U/L Alkaline Phosphatase (46-116) U/L Troponin I (0.000-0.056) ng/mL Total Protein (6.4-8.2) g/dL Albumin (3.4-5.0) g/dL Globulin (2.3-3.5) g/dL Albumin/Globulin Ratio (1.2-2.2) 01/31/21 01/31/21 Range/Units 04:50 04:50 WBC (4.5-11.0) K/uL RBC (3.30-5.50) M/uL Hgb (12.0-15.0) g/dL Hct (36.0-48.0) % MCV (80-98) fL MCH (27-31) pg MCHC (32-36) % Plt Count (150-400) K/uL APTT 68.3 H (27.0-36.0) sec Sodium 134 L (140-148) mmol/L Potassium 3.8 (3.6-5.2) mmol/L Chloride 98 L (100-108) mmol/L Carbon Dioxide 27 (21-32) mmol/L Anion Gap 12.8 (5.0-14.0) mmol/L BUN 37 H D (7-18) mg/dL Creatinine 1.4 H (0.6-1.0) mg/dL Est Cr Clr Drug Dosing 32.15 mL/min Estimated GFR (MDRD) 37 L (>60) Glucose 170 H (74-106) mg/dL Calcium 8.7 (8.5-10.1) mg/dL Magnesium 2.2 (1.8-2.4) mg/dL Total Bilirubin 0.9 (0.2-1.0) mg/dL AST 75 H D (15-37) U/L ALT 123 H (12-78) U/L Alkaline Phosphatase 78 (46-116) U/L Troponin I 1.076 H* (0.000-0.056) ng/mL Total Protein 6.0 L (6.4-8.2) g/dL Albumin 3.0 L (3.4-5.0) g/dL Globulin 3.0 (2.3-3.5) g/dL Albumin/Globulin Ratio 1.0 L (1.2-2.2) Result Diagrams: 01/31/21 04:50 01/31/21 04:50 Arturo Results Last 24 hrs: Microbiology 01/28/21 09:52 Aerobic Blood Culture - Preliminary Blood - Arm, Left NO GROWTH AFTER 3 DAYS Anaerobic Blood Culture - Preliminary NO GROWTH AFTER 3 DAYS 01/28/21 09:37 Aerobic Blood Culture - Preliminary Blood - Arm, Left NO GROWTH AFTER 3 DAYS Anaerobic Blood Culture - Preliminary NO GROWTH AFTER 3 DAYS Sepsis Event Note - Evaluation Sepsis Screening Result: Severe Sepsis Risk - Focused Exam Vital Signs: Vital Signs Temp Pulse Pulse Resp BP BP Pulse Ox 01/31/21 11:00 36.6 C 32 H 100/64 94 L 01/31/21 10:22 109 H 107/54 L 01/31/21 10:00 36.6 C 27 H 107/54 L 93 L 01/31/21 09:00 28 H 112/58 L 96 01/31/21 08:00 30 H 98/53 L 96 01/31/21 07:00 36.7 C 26 H 101/53 L 94 L 01/31/21 06:00 98 28 H 101/61 95 01/31/21 05:00 36.7 C 114 H 28 H 93/56 L 97 01/31/21 04:00 103 H 30 H 101/64 96 01/31/21 03:14 124 H 117/60 01/31/21 03:00 119 H 35 H 117/60 93 L 01/31/21 02:00 36.7 C 110 H 26 H 105/67 93 L - Problem List & Annotations (1) Congestive heart failure SNOMED Code(s): 69980839 Code(s): I50.9 - HEART FAILURE, UNSPECIFIED Status: Acute Current Visit: Yes Qualifiers: Heart failure type: unspecified Heart failure chronicity: acute Qualified Code(s): I50.9 - Heart failure, unspecified (2) Acute respiratory failure with hypoxia SNOMED Code(s): 97639889, 043149676 Code(s): J96.01 - ACUTE RESPIRATORY FAILURE WITH HYPOXIA Status: Acute Current Visit: Yes (3) Atrial fibrillation with rapid ventricular response SNOMED Code(s): 710459285174036 Code(s): I48.91 - UNSPECIFIED ATRIAL FIBRILLATION Status: Acute Current Visit: Yes (4) NSTEMI (non-ST elevated myocardial infarction) SNOMED Code(s): 16297208 Code(s): I21.4 - NON-ST ELEVATION (NSTEMI) MYOCARDIAL INFARCTION Status: Acute Current Visit: Yes (5) Mita rash of groin SNOMED Code(s): 207436651, 554901378 Code(s): B37.89 - OTHER SITES OF CANDIDIASIS Status: Resolved Priority: Medium Current Visit: No (6) CKD (chronic kidney disease), stage III SNOMED Code(s): 307388830 Code(s): N18.3 - CHRONIC KIDNEY DISEASE, STAGE 3 (MODERATE) * DO NOT USE * Status: Chronic Current Visit: No Qualifiers: Chronic kidney disease stage 3 subtype: stage 3b (GFR 30-44) Qualified Code(s): N18.32 - Chronic kidney disease, stage 3b - Problem List Review Problem List Initiated/Reviewed/Updated: Yes - My Orders Last 24 Hours: My Active Orders 01/30/21 14:03 Benzonatate [Tessalon Perles] 100 mg PO Q8H PRN 01/30/21 21:30 Heparin Sodium 5,000 units Sodium Chloride 0.9% [Normal Saline] 500 ml IV ASDIRECTED Phenylephrine [Roly-Synephrine] 40 mg Dextrose 5% in Water 250 ml IV TITRATE 01/30/21 21:36 Heparin Sodium [Heparin Lock Flush 100 Units/ML] 500 units FLUSH ASDIRECTED PRN 01/30/21 22:15 cefTAZidime Pentahydrate [Fortaz] 1 gm Sodium Chloride 0.9% [Normal Saline] 50 ml IV Q12H 01/30/21 23:15 Amiodarone [Cordarone] 450 mg Dextrose 5% in Water 241 ml IV ASDIRECTED 01/31/21 04:00 Metoprolol Tartrate [Lopressor] 5 mg IVPUSH Q6H 02/01/21 05:00 CBC W/O DIFF,HEMOGRAM [HEME] Timed (1) COMPREHENSIVE METABOLIC PN,CMP [CHEM] Timed TROPONIN I [CHEM] Timed - Plan Plan:: ASSESSMENT AND PLAN - Congestive heart failure with reduced ejection fraction-complicated by significant acute respiratory failure with hypoxia. Volume status seems slightly hypervolemic. CVP has been running about 10. -Dose of furosemide this morning -Norepinephrine and phenylephrine to maintain blood pressure for diuresis -Rate control of atrial fibrillation as below Non-ST elevation myocardial infarction-troponin peaked at 3.95 and is now trending down. Cardiogenic shock versus mixed shock picture. No evidence for infection. Occasional short runs of nonsustained ventricular tachycardia. -Continue heparin infusion -Aspirin -Metoprolol for improved rate control -Vasopressor support Acute exacerbation of COPD with bronchospasm-acute onset 01/29 with wheezing, respiratory failure with both hypoxia and hypercapnia. Intermittent use of NIPPV. No fevers. Tolerating empiric antibiotics and steroids. -Steroids every 8 hours -Scheduled and as needed nebulizers -Supplement oxygen, consider noninvasive ventilation again if declining -Continue empiric antibiotics Atrial fibrillation with rapid ventricular response-back into atrial fibrillation last night. Did not respond to metoprolol or digoxin. Currently receiving 24-hour amiodarone load. Rate control borderline acceptable. -Continue amiodarone load -IV metoprolol -Cardiac monitoring Stage III chronic kidney disease-stable. Tobacco dependence-encourage cessation Maintenance issues - -DVT prophylaxis-Heparin -GI prophylaxis-PPI -[id number] -Pastor catheter-placed for strict intake and output monitoring in a critical patient CODE STATUS -no CPR but intubation okay Disposition -I anticipate transfer to a higher level of care as soon as a bed is available. None have been available the past 72+ hours. Primary care physician - Soheila Mims M.D.
[2021-01-31] MEDS ORDERED: Digoxin 500 MCG/2 ML Amp IVPUSH ONE (14:00)
[2021-01-31] MEDS ORDERED: Vasopressin 100 UNITS in Dextrose 5% in Water 250 ML IV SCH ×2 (17:45)
--- NOTE | 2021-01-31 17:52 | PCM.DCSUM1 ---
Discharge Summary - Hospital Course Brief History: 75-year-old female with history of tobacco dependence, mild COPD, hypertension who presented with progressive dyspnea and respiratory distress. She was admitted to the intensive care unit for management of suspected NSTEMI, rapid atrial fibrillation, acute respiratory failure and acute congestive heart failure. Diagnosis: Stroke: No - Discharge Data Discharge Date: 01/31/21 Discharge Disposition: DC/Tfer to Acute Hospital 02 Condition: Critical - Referral to Home Health Primary Care Physician: Soheila Joseph PA-C - Discharge Diagnosis/Problem(s) (1) NSTEMI (non-ST elevated myocardial infarction) SNOMED Code(s): 32816120 ICD Code: I21.4 - NON-ST ELEVATION (NSTEMI) MYOCARDIAL INFARCTION Status: Acute Current Visit: Yes (2) Congestive heart failure SNOMED Code(s): 84192836 ICD Code: I50.9 - HEART FAILURE, UNSPECIFIED Status: Acute Current Visit: Yes Qualifiers: Heart failure type: systolic Heart failure chronicity: acute Qualified Code(s): I50.21 - Acute systolic (congestive) heart failure (3) Acute respiratory failure with hypoxia SNOMED Code(s): 33458642, 878704169 ICD Code: J96.01 - ACUTE RESPIRATORY FAILURE WITH HYPOXIA Status: Acute Current Visit: Yes (4) Atrial fibrillation with rapid ventricular response SNOMED Code(s): 428224568093644 ICD Code: I48.91 - UNSPECIFIED ATRIAL FIBRILLATION Status: Acute Current Visit: Yes (5) Mita rash of groin SNOMED Code(s): 862663013, 752237208 ICD Code: B37.89 - OTHER SITES OF CANDIDIASIS Status: Resolved Priority: Medium Current Visit: No (6) CKD (chronic kidney disease), stage III SNOMED Code(s): 962502473 ICD Code: N18.3 - CHRONIC KIDNEY DISEASE, STAGE 3 (MODERATE) * DO NOT USE * Status: Chronic Current Visit: No Qualifiers: Chronic kidney disease stage 3 subtype: stage 3b (GFR 30-44) Qualified Code(s): N18.32 - Chronic kidney disease, stage 3b (7) Acute exacerbation of chronic obstructive airways disease SNOMED Code(s): 664222566 ICD Code: J44.1 - CHRONIC OBSTRUCTIVE PULMONARY DISEASE W (ACUTE) EXACERBATION Status: Acute Current Visit: Yes (8) Tobacco dependence SNOMED Code(s): 87303685 ICD Code: F17.200 - NICOTINE DEPENDENCE, UNSPECIFIED, UNCOMPLICATED Status: Chronic Current Visit: Yes - Patient Summary/Data Operative Procedure(s) Performed: Right internal jugular triple-lumen central venous catheter placed 01/30 Labs Pending at D/C: Final results of blood cultures which are negative at 3 days Hospital Course: Estefani presented to the emergency room with acute worsening of 3 days of progressive shortness of breath. She required noninvasive ventilation in the ambulance and upon arrival to the emergency room. She was in atrial fibrillation with a rapid ventricular response. Initial work-up revealed a white blood cell count of 23,000, troponin of 0.15, BNP of 9100 and a normal procalcitonin. Chest x-ray suggested congestive heart failure and she was given IV furosemide as well as a nebulizer treatment. A CT scan of the chest without contrast was obtained and suggested congestive heart failure with small bilateral effusions and some pulmonary edema along with cardiomegaly. EKG did not suggest acute ischemia at that time. Initially our plan was to transfer her from the emergency room to a tertiary hospital with cardiology availability but unfortunately no beds were available anywhere near us. The patient was admitted to our intensive care. She was managed with a heparin infusion for the suspected NSTEMI. Atrial fibrillation was managed with a combination of digoxin and metoprolol with good response. She was empirically started on levofloxacin given her respiratory difficulties though we did not find strong evidence for infection initially and the procalcitonin was undetectable. Overnight following admission we saw a trend up in the troponin with a peak of 3.9 before a plateau and then a slow trend down. She did convert to a sinus rhythm after a coughing spell. We were able to take her off noninvasive ventilation intermittently with adequate oxygen saturation. Patient did not report any chest pain. She responded well to diuresis provided in the emergency room and further diuresis in the intensive care unit. The second afternoon after admission the patient became hypotensive and norepinephrine was initiated. There was concern for worsening cardiac function leading to the hypotension since there was not strong evidence to support sepsis. Her lactic acid level was normal. She did respond to the norepinephrine and we did give small quantities of fluid which also seem to help her blood pressure. She has remained on a heparin drip. She had a stable second night in the hospital. Additional attempts were made during the day to transfer the patient but again no critical care beds were available. Early in the morning on hospital day 3 she became acutely short of breath and was placed back on noninvasive ventilation. We started steroids and additional nebulizer therapies and had a good response with her respiratory status. At the time of the acute worsening she did have a pH of 7.0 and a PCO2 of 80. Serial blood gases after that point showed normalization of her pH and PCO2. Additional antibiotic coverage was added with ceftazidime. Blood pressures remain low despite 12 mcg of norepinephrine so vasopressin was added. Her troponin has been trending down since the peak at just below 4. We did have a formal echocardiogram on that showed an ejection fraction of 35% with concern for an anterior wall motion abnormality that extended down to the apex. Additional attempts at transfer to a higher level of care remained unsuccessful with no critical care beds available. In the evening of day 3 (01/30) patient went back into atrial fibrillation with a rapid ventricular response. Patient was not able to take her oral metoprolol so IV metoprolol was initiated. Digoxin was added without much benefit. She had also been having some short runs of ventricular tachycardia so we elected to use amiodarone for rate control and hopefully return to a sinus rhythm. We have had improved but still suboptimal rate control with the amiodarone load and 24-hour infusion which will finish up later Wednesday night. On 03/02, the day of transfer the patient has intermittently been using no ninvasive ventilation. She remains in atrial fibrillation with heart rates in the low 100s to 110 range. Occasionally up to the 120s. Troponin level is down to 1.0. She has not had any chest pain. Mental status has deteriorated some and she is sleepy and intermittently confused though conversant. White blood cell count initially trended down to around 15,000 and has risen to 19,000 again. Lactic acid levels have been normal. Volume status appears appropriate at this time but she has been intermittently receiving small doses of furosemide. She is on antibiotic coverage empirically with levofloxacin and ceftazidime. She has been on the heparin drip since 01/28. PTT levels have been stable. Creatinine is 1.4 with a GFR of 37 which is similar to admission with her best creatinine level being 1.2. Blood cultures from admission are negative at 3 days. She has been on IV steroids for suspected COPD exacerbation and these were initiated on 01/29. Patient is in need of urgent cardiology evaluation and likely an angiogram. At this point I think the benefits of transfer outweigh the risks. I believe she is stable enough for transfer to a higher level of care. The transfer of her care has been accepted by Dr. Nash and his help in her care is greatly appreciated. - Patient Instructions Other/Special Instructions: transfer to [facility] - Dr Nash accepting - Discharge Plan *PRESCRIPTION DRUG MONITORING PROGRAM REVIEWED*: Not Applicable *COPY OF PRESCRIPTION DRUG MONITORING REPORT IN PATIENT BRANDT: Not Applicable Home Medications: Home Meds Pantoprazole Sodium [Protonix] 20 mg PO DAILY 01/09/16 [History] amLODIPine [Norvasc] 5 mg PO DAILY 01/09/16 [History] Albuterol [Ventolin HFA] 2 puff IH QID 01/28/21 [History] Rosuvastatin [Crestor] 20 mg PO DAILY 01/28/21 [History] polyethylene glycoL 3350 [MiraLAX] 17 gm PO DAILY 01/28/21 [History] Oxygen Therapy Mode: Nasal Cannula Forms: ED Department Discharge Referrals: PCP,None [Ordering Only Provider] - - Discharge Summary/Plan Comment DC Time >30 min.: Yes Total # of Minutes for Discharge Time: 60-transfer to acute hospital - Patient Data Vitals - Most Recent: Last Vital Signs Temp 36.8 C 01/31/21 17:00 Pulse 130 H 01/31/21 13:56 Resp 28 H 01/31/21 17:00 BP 113/60 01/31/21 17:00 Pulse Ox 94 L 01/31/21 17:00 Weight - Most Recent: 93.349 kg I&O - Last 24 hours: Intake & Output 01/31/21 01/31/21 01/31/21 06:59 14:59 22:59 Intake Total 920 Output Total 1125 2750 Balance -205 -2750 Lab Results - Last 24 hrs: Laboratory Results - last 24 hr 01/30/21 01/31/21 01/31/21 Range/Units 22:30 04:50 04:50 WBC 19.4 H (4.5-11.0) K/uL RBC 4.08 (3.30-5.50) M/uL Hgb 13.2 (12.0-15.0) g/dL Hct 37.8 (36.0-48.0) % MCV 93 (80-98) fL MCH 32 H (27-31) pg MCHC 35 (32-36) % Plt Count 346 (150-400) K/uL APTT 43.0 H (27.0-36.0) sec Sodium 134 L (140-148) mmol/L Potassium 3.8 (3.6-5.2) mmol/L Chloride 98 L (100-108) mmol/L Carbon Dioxide 27 (21-32) mmol/L Anion Gap 12.8 (5.0-14.0) mmol/L BUN 37 H D (7-18) mg/dL Creatinine 1.4 H (0.6-1.0) mg/dL Est Cr Clr Drug Dosing 32.15 mL/min Estimated GFR (MDRD) 37 L (>60) Glucose 170 H (74-106) mg/dL Calcium 8.7 (8.5-10.1) mg/dL Magnesium 2.2 (1.8-2.4) mg/dL Total Bilirubin 0.9 (0.2-1.0) mg/dL AST 75 H D (15-37) U/L ALT 123 H (12-78) U/L Alkaline Phosphatase 78 (46-116) U/L Troponin I 1.076 H* (0.000-0.056) ng/mL Total Protein 6.0 L (6.4-8.2) g/dL Albumin 3.0 L (3.4-5.0) g/dL Globulin 3.0 (2.3-3.5) g/dL Albumin/Globulin Ratio 1.0 L (1.2-2.2) 01/31/21 01/31/21 Range/Units 04:50 15:37 WBC (4.5-11.0) K/uL RBC (3.30-5.50) M/uL Hgb (12.0-15.0) g/dL Hct (36.0-48.0) % MCV (80-98) fL MCH (27-31) pg MCHC (32-36) % Plt Count (150-400) K/uL APTT 68.3 H 68.3 H (27.0-36.0) sec Sodium (140-148) mmol/L Potassium (3.6-5.2) mmol/L Chloride (100-108) mmol/L Carbon Dioxide (21-32) mmol/L Anion Gap (5.0-14.0) mmol/L BUN (7-18) mg/dL Creatinine (0.6-1.0) mg/dL Est Cr Clr Drug Dosing mL/min Estimated GFR (MDRD) (>60) Glucose (74-106) mg/dL Calcium (8.5-10.1) mg/dL Magnesium (1.8-2.4) mg/dL Total Bilirubin (0.2-1.0) mg/dL AST (15-37) U/L ALT (12-78) U/L Alkaline Phosphatase (46-116) U/L Troponin I (0.000-0.056) ng/mL Total Protein (6.4-8.2) g/dL Albumin (3.4-5.0) g/dL Globulin (2.3-3.5) g/dL Albumin/Globulin Ratio (1.2-2.2) VIKTORIA Results - Last 24 hrs: Microbiology 01/28/21 09:52 Aerobic Blood Culture - Preliminary Blood - Arm, Left NO GROWTH AFTER 3 DAYS Anaerobic Blood Culture - Preliminary NO GROWTH AFTER 3 DAYS 01/28/21 09:37 Aerobic Blood Culture - Preliminary Blood - Arm, Left NO GROWTH AFTER 3 DAYS Anaerobic Blood Culture - Preliminary NO GROWTH AFTER 3 DAYS Med Orders - Current: Current Medications Acetaminophen (Acetaminophen 325 Mg Tab) 650 mg PO Q4H PRN PRN Reason: Pain (Mild 1-3)/fever Aspirin (Aspirin 81 Mg Tab.Ec) 81 mg PO DAILY [facility] Last Admin: 01/31/21 08:25 Dose: Not Given Documented by: Benzonatate (Benzonatate 100 Mg Cap) 100 mg PO Q8H PRN PRN Reason: Cough Heparin Sodium (Porcine) (Heparin Sodium 100 Units/Ml 5 Ml Syringe) 500 units FLUSH ASDIRECTED PRN PRN Reason: Other Last Admin: 01/30/21 21:49 Dose: 500 units Documented by: Heparin Sodium/Dextrose (Heparin 25,000 Units In D5w 500 Ml) 25,000 units in 500 mls @ 22.56 mls/hr IV TITRATE [facility]; Protocol Last Admin: 01/31/21 02:24 Dose: 18 units/kg/hr, 33.84 mls/hr Documented by: Norepinephrine Bitartrate 8 mg (/ Dextrose/Water) 250 mls @ 3.75 mls/hr IV TITRATE [facility]; Protocol Last Admin: 01/31/21 15:20 Dose: 9 mcg/min, 16.875 mls/hr Documented by: Levofloxacin/Dextrose 750 mg/ (Premix) 150 mls @ 100 mls/hr IV Q48H [facility] Last Admin: 01/31/21 09:26 Dose: 100 mls/hr Documented by: Heparin Sodium (Porcine) 5,000 (units/ Sodium Chloride) 501 mls @ 0 mls/hr IV ASDIRECTED [facility] Last Admin: 01/30/21 22:28 Dose: 1 mls/hr Documented by: Ceftazidime 1 gm/ Sodium (Chloride) 50 mls @ 100 mls/hr IV Q12H [facility] Last Admin: 01/31/21 11:07 Dose: 100 mls/hr Documented by: Amiodarone HCl 450 mg/ (Dextrose/Water) 250 mls @ 33.333 mls/hr IV ASDIRECTED [facility]; Protocol Last Admin: 01/31/21 07:35 Dose: 0.5 mg/min, 16.667 mls/hr Documented by: Vasopressin 100 units/ (Dextrose/Water) 255 mls @ 6.12 mls/hr IV ASDIRECTED [facility]; Protocol Levalbuterol HCl (Levalbuterol Hcl 1.25 Mg/3 Ml Neb) 1.25 mg NEB Q2H PRN PRN Reason: Dyspnea Last Admin: 01/31/21 03:12 Dose: 1.25 mg Documented by: Levalbuterol HCl (Levalbuterol Hcl 1.25 Mg/3 Ml Neb) 1.25 mg NEB QIDRT [facility] Last Admin: 01/31/21 14:37 Dose: 1.25 mg Documented by: Lorazepam (Lorazepam 2 Mg/Ml Sdv) 1 mg IVPUSH Q2H PRN PRN Reason: Anxiety Last Admin: 01/31/21 16:53 Dose: 1 mg Documented by: Lorazepam (Lorazepam 2 Mg/Ml Sdv) 0.5 mg IVPUSH Q2H PRN PRN Reason: Anxiety Last Admin: 01/30/21 14:30 Dose: 0.5 mg Documented by: Magnesium Hydroxide (Magnesium Hydroxide 400 Mg/5 Ml Susp 30 Ml Cup) 30 ml PO Q12H PRN PRN Reason: Constipation Melatonin (Melatonin 3 Mg Tab) 9 mg PO BEDTIME [facility] Last Admin: 01/30/21 23:08 Dose: Not Given Documented by: Methylprednisolone Sodium Succinate (Methylprednisolone Sodium Succinate 125 Mg/2 Ml Sdv) 62.5 mg IVPUSH Q8H [facility] Last Admin: 01/31/21 11:56 Dose: 62.5 mg Documented by: Metoprolol Tartrate (Metoprolol Tartrate 5 Mg/5 Ml Sdv) 5 mg IVPUSH Q4H [facility] Last Admin: 01/31/21 13:56 Dose: 5 mg Documented by: Morphine Sulfate (Morphine 2 Mg/Ml Syringe) 2 mg IVPUSH Q2H PRN PRN Reason: Dyspnea Last Admin: 01/31/21 15:47 Dose: 2 mg Documented by: Nystatin (Nystatin Crm 15 Gm Tube) 1 gm TOP TID [facility] Last Admin: 01/31/21 14:03 Dose: 1 applic Documented by: Nystatin (Nystatin Topical Powder 15 Gm Bottle) 1 gm TOP TID [facility] Last Admin: 01/31/21 14:03 Dose: 1 applicful Documented by: Ondansetron HCl (Ondansetron 4 Mg/2 Ml Sdv) 4 mg IV Q6H PRN PRN Reason: Nausea/Vomiting Ondansetron HCl (Ondansetron 4 Mg Tab.Dis) 4 mg PO Q6H PRN PRN Reason: Nausea able to take PO Pantoprazole Sodium (Pantoprazole 40 Mg Tab.Cr) 40 mg PO ACBREAKFAST [facility] Last Admin: 01/31/21 08:24 Dose: Not Given Documented by: Polyethylene Glycol (Polyethylene Glycol 3350 Powder 17 Gm Packet) 17 gm PO DAILY PRN PRN Reason: Constipation Rosuvastatin Calcium (Rosuvastatin 10 Mg Tab) 20 mg PO DAILY [facility] Last Admin: 01/31/21 08:24 Dose: Not Given Documented by: Senna/Docusate Sodium (Docusate Sodium/Sennosides 50-8.6 Mg Tab) 1 tab PO BID PRN PRN Reason: Constipation Discontinued Medications Albuterol (Albuterol 0.083% 2.5 Mg/3 Ml Neb Soln) 2.5 mg NEB Q2H PRN PRN Reason: Wheezing Last Admin: 01/29/21 05:24 Dose: 2.5 mg Documented by: Albuterol/Ipratropium (Albuterol/Ipratropium 3.0-0.5 Mg/3 Ml Neb Soln) 3 ml NEB ONETIME ONE Stop: 01/28/21 09:18 Last Admin: 01/28/21 09:20 Dose: 3 ml Documented by: Albuterol/Ipratropium (Albuterol/Ipratropium 3.0-0.5 Mg/3 Ml Neb Soln) Confirm Administered Dose 3 ml .ROUTE .STK-MED ONE Stop: 01/28/21 09:18 Last Admin: 01/28/21 09:20 Dose: Not Given Documented by: Amiodarone HCl (Amiodarone 150 Mg/3 Ml Sdv) 150 mg IVPUSH ONETIME ONE Stop: 01/30/21 23:25 Last Admin: 01/30/21 23:45 Dose: 150 mg Documented by: Aspirin (Aspirin 81 Mg Tab.Chew) 324 mg PO ONETIME ONE Stop: 01/29/21 09:16 Last Admin: 01/29/21 09:19 Dose: 324 mg Documented by: Digoxin (Digoxin 500 Mcg/2 Ml Amp) 125 mcg IVPUSH ONETIME ONE Stop: 01/28/21 14:41 Last Admin: 01/28/21 16:04 Dose: 125 mcg Documented by: Digoxin (Digoxin 500 Mcg/2 Ml Amp) 125 mcg IVPUSH ONETIME ONE Stop: 01/30/21 21:33 Last Admin: 01/30/21 21:46 Dose: 125 mcg Documented by: Digoxin (Digoxin 500 Mcg/2 Ml Amp) 250 mcg IVPUSH ONETIME ONE Stop: 01/31/21 14:01 Last Admin: 01/31/21 13:51 Dose: 250 mcg Documented by: Furosemide (Furosemide 40 Mg/4 Ml Vial) 80 mg IVPUSH ONETIME ONE Stop: 01/28/21 11:49 Last Admin: 01/28/21 12:05 Dose: 80 mg Documented by: Furosemide (Furosemide 40 Mg/4 Ml Vial) 60 mg IVPUSH ONETIME ONE Stop: 01/28/21 18:12 Last Admin: 01/28/21 18:22 Dose: 60 mg Documented by: Furosemide (Furosemide 40 Mg/4 Ml Vial) 60 mg IVPUSH ONETIME ONE Stop: 01/29/21 02:55 Last Admin: 01/29/21 03:00 Dose: 60 mg Documented by: Furosemide (Furosemide 100 Mg/10 Ml Sdv) Confirm Administered Dose 100 mg .ROUTE .STK-MED ONE Stop: 01/29/21 02:57 Last Admin: 01/29/21 03:10 Dose: Not Given Documented by: Furosemide (Furosemide 20 Mg/2 Ml Vial) 20 mg IVPUSH ONETIME ONE Stop: 01/30/21 17:51 Last Admin: 01/30/21 19:04 Dose: 20 mg Documented by: Furosemide (Furosemide 20 Mg/2 Ml Vial) 20 mg IVPUSH ONETIME ONE Stop: 01/31/21 09:01 Last Admin: 01/31/21 09:26 Dose: 20 mg Documented by: Heparin Sodium (Porcine) (Heparin Sodium 5,000 Units/Ml Vial) 4,000 units IVPUSH .BOLUS ONE Stop: 01/28/21 17:01 Last Admin: 01/28/21 16:53 Dose: 4,000 units Documented by: Heparin Sodium (Porcine) (Heparin Sodium 5,000 Units/Ml Vial) Confirm Administered Dose 5,000 units .ROUTE .STK-MED ONE Stop: 01/28/21 23:58 Last Admin: 01/28/21 23:59 Dose: 1,000 units Documented by: Heparin Sodium (Porcine) (Heparin Sodium 5,000 Units/Ml Vial) 1,000 units IVPUSH .BOLUS ONE Stop: 01/30/21 23:31 Last Admin: 01/30/21 23:41 Dose: 1,000 units Documented by: Levofloxacin/Dextrose 750 mg/ (Premix) 150 mls @ 100 mls/hr IV Q24H [facility] Last Admin: 01/29/21 09:20 Dose: 100 mls/hr Documented by: Norepinephrine Bitartrate 4 mg (/ Dextrose/Water) 250 mls @ 7.5 mls/hr IV TITRATE [facility]; Protocol Stop: 01/29/21 17:30 Last Admin: 01/29/21 12:11 Dose: 12 mcg/min, 45 mls/hr Documented by: Lactated Ringer's (Ringers, Lactated) 1,000 mls @ 999 mls/hr IV BOLUS ONE Stop: 01/28/21 11:19 Last Admin: 01/28/21 10:32 Dose: 999 mls/hr Documented by: Potassium Chloride 20 meq/Lidocaine HCl 2 ml/ Sodium Chloride 112 mls @ 50 mls/hr IV Q2H [facility] Stop: 01/29/21 07:29 Last Admin: 01/29/21 05:41 Dose: 50 mls/hr Documented by: Lidocaine HCl (Xylocaine-Mpf 1%) Confirm Administered Dose 2 mls @ as directed .ROUTE .STK-MED ONE Stop: 01/29/21 05:28 Last Admin: 01/29/21 05:42 Dose: Not Given Documented by: Potassium Chloride (Kcl In Water 20 Meq/100 Ml) Confirm Administered Dose 100 mls @ as directed .ROUTE .STK-MED ONE Stop: 01/29/21 05:28 Last Admin: 01/29/21 05:42 Dose: Not Given Documented by: Sodium Chloride (Normal Saline) 500 mls @ 999 mls/hr IV ASDIRECTED ONE Stop: 01/29/21 11:15 Last Admin: 01/29/21 11:04 Dose: 999 mls/hr Documented by: Vasopressin 100 units/ (Dextrose/Water) 255 mls @ 1.53 mls/hr IV TITRATE [facility]; Protocol Last Titration: 01/29/21 14:38 Dose: 0.03 units/min, 4.59 mls/hr Documented by: Vasopressin 100 units/ (Dextrose/Water) 255 mls @ 1.53 mls/hr IV TITRATE [facility]; Protocol Stop: 01/30/21 08:55 Last Titration: 01/30/21 09:05 Dose: 0.065 units/min, 9.945 mls/hr Documented by: Sodium Chloride (Normal Saline) 500 mls @ 500 mls/hr IV .BOLUS ONE Stop: 01/30/21 05:20 Last Admin: 01/30/21 04:26 Dose: 500 mls/hr Documented by: Vasopressin 40 units/ Dextrose (/Water) 102 mls @ 1.53 mls/hr IV TITRATE [facility]; Protocol Last Titration: 01/30/21 23:44 Dose: 0 units/min, 0 mls/hr Documented by: Potassium Chloride 20 meq/Lidocaine HCl 2 ml/ Sodium Chloride 112 mls @ 56 mls/hr IV ONETIME ONE Stop: 01/30/21 12:29 Last Admin: 01/30/21 10:37 Dose: 56 mls/hr Documented by: Phenylephrine HCl 40 mg/ (Dextrose/Water) 254 mls @ 15.24 mls/hr IV TITRATE [facility]; Protocol Last Admin: 01/31/21 14:48 Dose: 40 mcg/min, 15.24 mls/hr Documented by: Lorazepam (Lorazepam 2 Mg/Ml Sdv) 0.5 mg IVPUSH Q4H PRN PRN Reason: Nausea/Vomiting Last Admin: 01/29/21 01:15 Dose: 0.5 mg Documented by: Methylprednisolone Sodium Succinate (Methylprednisolone Sodium Succinate 125 Mg/2 Ml Sdv) 125 mg IVPUSH ONETIME ONE Stop: 01/29/21 04:10 Last Admin: 01/29/21 04:30 Dose: 125 mg Documented by: Metoprolol Tartrate (Metoprolol Tartrate 25 Mg Tab) 25 mg PO ONETIME ONE Stop: 01/28/21 14:41 Last Admin: 01/28/21 15:59 Dose: 25 mg Documented by: Metoprolol Tartrate (Metoprolol Tartrate 25 Mg Tab) 25 mg PO Q12H [facility] Last Admin: 01/30/21 09:20 Dose: 25 mg Documented by: Metoprolol Tartrate (Metoprolol Tartrate 5 Mg/5 Ml Sdv) 5 mg IVPUSH ONETIME ONE Stop: 01/30/21 21:23 Last Admin: 01/30/21 21:33 Dose: 5 mg Documented by: Metoprolol Tartrate (Metoprolol Tartrate 5 Mg/5 Ml Sdv) 5 mg IVPUSH Q6H [facility] Last Admin: 01/31/21 10:22 Dose: 5 mg Documented by: Morphine Sulfate (Morphine 4 Mg/Ml Syringe) 4 mg IVPUSH ONETIME ONE Stop: 01/28/21 09:25 Last Admin: 01/28/21 09:32 Dose: 4 mg Documented by: Nystatin (Nystatin Topical Powder 15 Gm Bottle) 0 gm TOP TID [facility] Last Admin: 01/29/21 09:18 Dose: 1 applic Documented by: Phentolamine Mesylate (Phentolamine 5 Mg Vial) 10 mg SUBCUT ONETIME ONE Stop: 01/30/21 20:01 Last Admin: 01/30/21 20:13 Dose: 10 mg Documented by: Potassium Chloride (Potassium Chloride 20 Meq Tab.Er) 40 meq PO ONETIME ONE Stop: 01/30/21 08:31 Last Admin: 01/30/21 08:31 Dose: 40 meq Documented by:
[2021-01-31 18:15] VITALS: BP 98/55; PULSE 135
== END 2021-01-31 19:45 | DRG 280 ==
LOC: JP.ED 09:13 → JP.ICU 14:42
PROVIDERS: ADMIT Internal Medicine; ATTEND Internal Medicine
PROC: 05HM33Z Insertion of Infusion Device into Right Internal Jugular Vein, Percutaneous Approach (ICD-10-PCS; principal; 2021-01-30)
DX: I13.0 Hypertensive heart and chronic kidney disease with heart failure and stage 1 through stage 4 chronic kidney disease, or unspecified chronic kidney disease (principal); I21.4 Non-ST elevation (NSTEMI) myocardial infarction; I50.21 Acute systolic (congestive) heart failure; I50.9 Heart failure, unspecified; J96.02 Acute respiratory failure with hypercapnia; J96.01 Acute respiratory failure with hypoxia; B37.89 Other sites of candidiasis; J44.1 Chronic obstructive pulmonary disease with (acute) exacerbation; I48.91 Unspecified atrial fibrillation; N18.32 Chronic kidney disease, stage 3b; F17.200 Nicotine dependence, unspecified, uncomplicated; I11.0 Hypertensive heart disease with heart failure; E78.00 Pure hypercholesterolemia, unspecified; K21.9 Gastro-esophageal reflux disease without esophagitis; E66.9 Obesity, unspecified; J44.9 Chronic obstructive pulmonary disease, unspecified; Z79.51 Long term (current) use of inhaled steroids; R32 Unspecified urinary incontinence; Z87.440 Personal history of urinary (tract) infections; Z98.49 Cataract extraction status, unspecified eye; Z90.49 Acquired absence of other specified parts of digestive tract; Z71.6 Tobacco abuse counseling; Z68.34 Body mass index [BMI] 34.0-34.9, adult; F32.9 Major depressive disorder, single episode, unspecified; J30.9 Allergic rhinitis, unspecified; H54.7 Unspecified visual loss; Z88.5 Allergy status to narcotic agent; Z79.899 Other long term (current) drug therapy; Z20.822 Contact with and (suspected) exposure to COVID-19
CPT/HCPCS: 36415; 36600 ×2; 51702; 71045 ×2; 71250 ×2; 80053; 81001; 82803 ×2; 83605; 83880; 84145; 84484 ×2; 85025; 85730; 86140; 87040 ×2; 93005; 94640 ×2; 96365; 96366; 96375; 99285; J1940; J1956; J2270; J7060; J7120; U0002; 80048; 83735; 85027; 93306; 94660; A9270-GY; J0282; J0713; J1160; J1642; J1644; J2060; J2370; J2760; J2930; J3480; J3490; J7030; J7040; J7612-GY; J7620-GY